=== PATIENT | female | born 1970 | race Caucasian/White ===

== ENCOUNTER 2016-10-08 06:35 | Emergency (ER) | payer OTHER ==
[~2016-10-08] VITALS: Ht 170.2 cm; Wt 77.3 kg
[~2016-10-08 06:35] MED LIST: CEPH-512 PO; CETI10CA PO; CITA20TA11 PO; FENT1PAT6 TRANSDERM; FENT1PAT9 TRANSDERM; LETR2.5T4 PO; LEVO25TA5 PO; LISI40TA PO; LORA-302 PO; Meclizine Hcl PO; ONDA4TAB9 PO; OXYC10TA8 PO; PALB75CA PO; TRIA10.8 NS
[2016-10-08 06:38] VITALS: BP 131/91; PULSE 84; RESP 16; O2SAT 98
--- NOTE | 2016-10-08 07:04 | ED.REPORT ---
HPI-Abd Pain F 40 and Over Date of Service Oct 08, 2016 ED Provider: Vito Trejo DO A 45 year old female with a history of hypertension, anxiety, and metastatic breast cancer on chemotherapy presents to the ED complaining of vomiting. This began two days ago, and has been severe since. She is unable to keep anything down, including her medications. Zofran has not helped. The pt was taking her third round of chemotherapy, which she believes may be a contributing factor. She admits to right sided flank pain and mild constipation, but denies cough, fever, diarrhea, dysuria, urinary urgency, urinary frequency, or rash. Nursing Notes Stated Complaint: VOMITING FOR DAYS Chief Complaint: Female Abdominal Pain Nursing Notes Reviewed: Yes Allergies: Coded Allergies: Penicillins (Verified Allergy, Severe, RASH, 05/06/16) metoclopramide (Verified Allergy, Intermediate, tremors, 05/06/16) prochlorperazine (Verified Allergy, Unknown, 05/06/16) Sulfa (Sulfonamide Antibiotics) (Verified Adverse Reaction, Intermediate, N&V, 05/06/16) ciprofloxacin (Verified Adverse Reaction, Mild, MALAISE, 05/06/16) metoclopramide HCl (Verified Adverse Reaction, Mild, JITTERINESS, 05/06/16) Uncoded Allergies: APRICOTS (Allergy, Severe, UNKNOWN, 05/20/13) "My lips swell" CATS (Allergy, Unknown, UNKNOWN, 04/24/12) DUST MITES (Allergy, Unknown, UNKNOWN, 04/24/12) SULFITES (Allergy, Unknown, UNKNOWN, 04/24/12) TREE POLLEN (Allergy, Unknown, UNKNOWN, 04/24/12) Scheduled Cephalexin (Keflex) 500 Mg Capsule 500 MG PO QID Cetirizine HCl (Zyrtec) 10 Mg Capsule 10 MG PO HS Citalopram (Citalopram) 20 Mg Tablet 20 MG PO DAILY Fentanyl 12.5 mcg/hr Patch (Fentanyl 12.5 mcg/hr Patch) 1 Each Patch.td72 1 PATCH TRANSDERM Q3D Fentanyl 50 mcg/hr Patch (Fentanyl 50 mcg/hr Patch) 1 Each Patch.td72 1 PATCH TRANSDERM Q3D Letrozole (Letrozole) 2.5 Mg Tablet 2.5 MG PO DAILY Levothyroxine (Levothyroxine) 25 Mcg Tablet 25 MCG PO DAILY Lisinopril (Lisinopril) 40 Mg Tablet 40 MG PO DAILY Palbociclib (Ibrance) 75 Mg Capsule 75 MG PO daily x21 Triamcinolone Acetonide (Nasacort) 10.8 Ml [place] 10.8 ML NS DAILY Scheduled PRN ([Meclizine Hcl]) 25 MG TABLET 25 MG PO TID PRN PRN For Dizziness Lorazepam (Ativan) 0.5 Mg Tablet 1-3 TABLET PO Q6HRS PRN PRN For Insomnia Ondansetron ODT (Zofran ODT) 4 Mg Tablet 4-8 MG PO Q4H PRN PRN For Nausea/ Vomiting Promethazine Supp (Promethazine Supp) 25 Mg Supp 25 MG RECTAL Q8H PRN PRN For Nausea/Vomiting oxyCODONE (oxyCODONE) 10 Mg Tablet 10 MG PO Q6H PRN PRN For Pain General Time Seen by MD: 07:03 Chief Complaint Vomiting severe Hx Obtained From: Patient Arrived By: Walk-in Sudden in Onset?: No Onset Occurred: 2 days ago Symptom Duration: Since onset Recent Healthcare: Recent doctor visit, Recent hospitalization Similar Sx Previous: No Past Medical History Past Medical History Notes: Oncologist Gabo alvarez Past Medical History 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 Reccurrence of breast cancer with metastasis to spine and hips, July 2014 L sided breast cancer with chemo ([id number]) and radiation Hypertension Anxiety Depression Past Surgical History bone biopsy L3 pedicle and L3 vertebral body 10/01/14 - pathology postive for breast CA recurrence sinus polyp removal lumpectomy for CA, portacath placement hysterectomy tubal ligation uterine ablation Family History Noncontributory Smoking History Former Smoker Social History Alcohol Use: Denies alcohol use Drug Use: Denies drug use Other Social History: Good social support, Local resident Ambulatory Status Independent Review of Systems Constitutional: Denies: Fever Respiratory: Denies: Non-productive cough, Shortness of breath Cardiovascular: Denies: Chest pain GI: Reports: Constipation, Nausea, Vomiting, Denies: Diarrhea Female: Reports: Flank pain (right), Denies: Dysuria, Urinary frequency, Urinary urgency Musculoskeletal: Denies: Back pain, Neck pain Complete sys rev & neg: except as marked. Skin: Denies Rash Physical Exam Vital Signs Vital Signs (First) Date Time Temp Pulse Resp B/P Pulse Ox O2 Delivery O2 Flow Rate FiO2 10/08/16 06:38 36.1 84 16 131/91 98 Room Air Initial VS: Reviewed General/Constitutional: Awake, Alert Respiratory / Chest: Atraumatic, Breath sounds NL, Breath sounds = bilat, No respiratory distress Cardiovascular: Heart rate NL, Regular rhythm, Heart sounds NL Abdomen: Atraumatic, Soft, Non-tender Back: Atraumatic, Full range of motion right CVAT Head / Eyes: Atraumatic, Normocephalic, PERRL, EOMI ENT: Atraumatic, Airway patent, Mucous membranes moist Skin: Atraumatic, Color NL, No rash, Warm, Dry Neurologic: Oriented X3, Speech NL, No motor deficits, No sensory deficits Neck: Atraumatic, Supple, Full range of motion Upper Extremity / MS: Atraumatic, Full range of motion Lower Extremity / Pelvis / MS: Atraumatic, Full range of motion Psychiatric: Affect NL, Mood NL Interpretation & Diagnostics Interpretation & Diagnostics: CT KUB: IMPRESSION: 1. No nephro or ureterolithiasis. No bladder calculi. No obstruction. 2. Hepatomegaly with steatosis. 3. Mild diverticulosis. 4. Unchanged appearance of known metastatic osseous disease. Dictated by: Cierra Myrick M.D. on 10/08/2016 at 11:09 Approved by: Cierra Myrick M.D. on 10/08/2016 at 11:09 Lab Results Interpretation Result Diagram: 10/08/16 0840 10/08/16 0840 Test 10/08/16 08:40 10/08/16 10:30 White Blood Count 2.4th/mm3 (3.8-10.1) Red Blood Count 3.16mil/mm3 (3.90-5.20) Hemoglobin 10.0g/dL (12.0-15.6) Hematocrit 29.2% (35.0-46.0) Mean Corpuscular Volume 92.4fL (81-100) Mean Corpuscular Hemoglobin 31.6pg (27.0-35.0) Mean Corpuscular Hemoglobin Concent 34.2% (32.0-37.0) Red Cell Distribution Width 16.1% (12.3-15.4) Platelet Count 164bil/L (150-400) Neutrophils (%) (Auto) 74.3% (40-74) Lymphocytes (%) (Auto) 17.6% (14-46) Monocytes (%) (Auto) 6.1% (4-12) Eosinophils (%) (Auto) 0.8% (0-5) Basophils (%) (Auto) 0.4% (0-3) Sodium Level 137mEq/L (134-144) Potassium Level 3.6mEq/L (3.5-5.2) Chloride Level 97mEq/L (97-108) Carbon Dioxide Level 27mmol/L (18-29) Blood Urea Nitrogen 10mg/dL (6-24) Creatinine 0.66mg/dL (0.57-1.00) Estimat Glomerular Filtration Rate 138mL/min (>59) Glucose Level 126mg/dL (60-99) Lactic Acid Level 1.4mmol/L (0.4-2.0) Calcium Level 9.4mg/dL (8.5-10.1) Magnesium Level 2.1mg/dL (1.6-2.6) Total Bilirubin 0.6mg/dL (0.0-1.2) Aspartate Amino Transf (AST/SGOT) 25U/L (0-50) Alanine Aminotransferase (ALT/SGPT) 17U/L (0-32) Alkaline Phosphatase 53U/L (25-150) Total Protein 7.2g/dL (6.4-8.4) Albumin 4.5g/dL (3.4-5.0) Lipase 13U/L (13-60) Urine Color Straw (YELLOW) Urine Appearance Clear (CLEAR,HAZY) Urine pH 8.5 (5.0-8.0) Urine Specific [place] 1.015 (1.003-1.035) Urine Protein Negativemg/dL (NEG,TRACE) Urine Glucose (UA) Negativemg/dL (NEGATIVE) Urine Ketones 15mg/dL (NEGATIVE) Urine Occult Blood Moderate (NEGATIVE) Urine Nitrite Negative (NEGATIVE) Urine Bilirubin Negative (NEGATIVE) Urine Urobilinogen Normalmg/dL (NORMAL) Urine Leukocyte Esterase Trace (NEGATIVE) Urine RBC 0-2/hpf (0-2) Urine WBC 0-5/hpf (0-5) Urine Epithelial Cells Occasional/hpf (NONE-MOD) Urine Crystals None seen (NONE SEEN) Urine Bacteria Few/hpf (NONE-FEW) Urine Hyaline Casts None/lpf (NONE) Urine Granular Casts None seen (NONE SEEN) Urine Waxy Casts None seen (NONE SEEN) Urine Red Blood Cell Casts None seen (NONE SEEN) Urine White Blood Cell Casts None seen (NONE SEEN) Urine Mucus None seen (None Seen) Urine Trichomonas None seen (NONE SEEN) Urine Yeast None (NONE SEEN) Urinalysis Comment None Urine Culture Reflexed Indicated Re-Eval/Medical Decision Med Decision/Clinical Course Difficult to manage vomiting due to reported allergies, she was given Phenergan without any side effects and with complete relief of her vomiting. Additionally she is given multiple other meds with minimal prior relief. Given her flank pain and hematuria as well as CVA tenderness CT KUB was performed but unremarkable. She will be discharged with Phenergan suppositories. She is tolerating oral intake in the ER. Source of Hx: Old records Re-Evaluation/Progress #1: Time of Eval: 10:17 Re-Evaluation/Progress Note: Pt rechecked, who remains nauseated. Medication options and allergies are discussed. Re-Evaluation/Progress #2: Time of Eval: 10:32 Re-Evaluation/Progress Note: Pt rechecked and nausea medications are discussed. Lab results are also addressed. Re-Evaluation/Progress #3: Time of Eval: 11:44 Re-Evaluation/Progress Note: Pt rechecked, who is still vomiting. Treatment options are discussed. Re-Evaluation/Progress #4: Time of Eval: 12:27 Re-Evaluation/Progress Note: Pt rechecked, who is still nauseated. Further options are discussed. Re-Evaluation/Progress #5: Time of Eval: 13:20 Patient Status: Condition improved Re-Evaluation/Progress Note: Pt rechecked, who is no longer vomiting. She will be given an oral challenge. The plan for discharge on Phenergan is discussed if this challenge is passed. The pt understands and agrees with the plan. Re-Evaluation/Progress #6: Time of Eval: 13:45 Patient Status: Condition improved Re-Evaluation/Progress Note: Pt rechecked, who has passed the oral challenge and feels prepared for discharge. She was given Promethazine without adverse reaction. The pt understands and agrees with the plan. All questions were addressed at this time. Counseled Regarding: Diagnosis, Lab results, Need for follow-up, When/why to return to ED Discharge & Departure Primary Impression: Vomiting Disposition: Home Discharge Condition All VS Reviewed: Yes Condition: Stable Patient Instructions: Acute Nausea and Vomiting (ED) Additional Instructions: Take Phenergan as prescribed for nausea. Follow up with your primary care physician for further evaluation. Return to the emergency department if you develop any new or worsening symptoms. Referrals: Kev Lyn MD (PCP) Shyanneibe Attestation Portions of this note were transcribed by Mayda Griffith I, Dr. Trejo personally performed the history, physical exam and medical decision-making; I reviewed and confirmed the accuracy of the information in the transcribed note. Signed by: Milagros Greenberg, 10/08/16 and 14:14. copies to: Kev Lyn MD, Timothy S DO Oct 08, 2016 07:04 MAYDA GRIFFITH Oct 08, 2016 07:27
[2016-10-08] MEDS ORDERED: Ondansetron 8 mg ODT Tablet PO ONE (07:25)
[2016-10-08] MEDS ORDERED: 0.9% Sodium Chloride 1,000 ML IV ONE ×2 (07:27→10:20)
[2016-10-08] MEDS: Ondansetron 2 mg/mL 2 mL Inj IVPUSH PRN ×2 (08:51→10:01)
[2016-10-08] MEDS: HYDROmorphone 1 mg/mL Inj IVPUSH PRN ×2 (08:52→10:03)
[2016-10-08 09:08] LABS: BASOPHILS % (AUTO) 0.4 % (0-3); EOSINOPHILS % (AUTO) 0.8 % (0-5); MONOCYTES % (AUTO) 6.1 % (4-12); Mean Corpuscular Hemoglobin 31.6 pg (27.0-35.0); Mean Corpuscular Volume 92.4 fL (81-100); NEUTROPHILS % (AUTO) 74.3 % (40-74); Platelet Count 164 bil/L (150-400)
[2016-10-08 09:20] LABS: Magnesium 2.1 mg/dL (1.6-2.6)
[2016-10-08] MEDS ORDERED: Dexamethasone Inj 10 MG in 0.9% Sodium Chloride-Pha MIX 50 ML IV ONE (10:20)
[2016-10-08] MEDS ORDERED: Famotidine 10 mg/mL 2 mL Inj IVPUSH ONE (10:35)
[2016-10-08 11:00] VITALS: BP 155/85; PULSE 52; RESP 16; O2SAT 99
[2016-10-08 11:10] LABS: APPEARANCE,URINE CLEAR (CLEAR,HAZY); COLOR,URINE STRAW (YELLOW); OCCULT BLOOD,URINE MODERATE (NEGATIVE); PH,URINE 8.5 (5.0-8.0); UROBILINOGEN,URINE NORMAL (NORMAL)
--- NOTE | 2016-10-08 12:07 | DRSVH ---
PROCEDURE: CT KUB ([id number]) INDICATIONS: Right CVA, hematuria TECHNIQUE: Noncontrast 5 mm thick sections acquired from the diaphragms to the symphysis. 5 mm thick coronal an d sagittal reformats were then performed. For radiation dose reduction, the following was used: aut omated exposure control, adjustment of mA and/or kV according to patient size. COMPARISON: [facility], CT, CT CHEST ABD PELVIS W CON, 04/01/2016, 14:49. [facility], CT, KUB - CT (PNL), 01/31/2015, 13:21. FINDINGS: Image quality: Excellent. Lung bases: Lung bases are clear. Heart size is normal. Urinary system: Both kidneys are normal in size. No kidney stones. No hydronephrosis or perinephri c fat stranding. Both ureters appear non-dilated throughout their expected courses. Bladder wall th ickness is normal; no calcified bladder stones. Other solid organs: Liver is mildly enlarged with steatosis. The spleen is normal in size. Gallblad diogenes is unremarkable. Pancreas is normal in contours. No adrenal nodules. Peritoneum and bowel: Unenhanced bowel loops demonstrate normal wall thickness and caliber. No free fluid or air. Scattered diverticula without associated inflammatory change. Nodes and vessels: No retroperitoneal or mesenteric adenopathy by size criteria. Aorta and inferior vena cava are normal in caliber. Abdominal wall: No ventral hernias. Pelvis: No free pelvic fluid. No inguinal hernias or adenopathy. Bones: Unchanged appearance of sclerotic and lucent foci within the osseous structures consistent wit h known metastatic disease. No vertebral body compression fractures. IMPRESSION: 1. No nephro or ureterolithiasis. No bladder calculi. No obstruction. 2. Hepatomegaly with steatosis. 3. Mild diverticulosis. 4. Unchanged appearance of known metastatic osseous disease. Dictated by: Cierra Myrick M.D. on 10/08/2016 at 11:09 Approved by: Cierra Myrick M.D. on 10/08/2016 at 11:09
[2016-10-08] MEDS ORDERED: Promethazine Inj 25 MG in Dextrose 5%-Pha MIX 50 ML IV ONE (12:30)
[2016-10-08] MEDS ORDERED: PROM25SU47 RECTAL (14:08)
[2016-10-08 14:29] VITALS: BP 133/90; PULSE 59; O2SAT 97
[2016-10-08] MEDS ORDERED: HepLOK Flush 100 unit/mL 5 mL Inj ONE (14:45)
[2016-10-17] MEDS ORDERED: FLUO20TA28 PO (15:39)
[2016-10-17] MEDS ORDERED: FENT-2 TRANSDERM (15:39)
[2016-10-17] MEDS ORDERED: OLAN5TAB PO (15:39)
[2016-11-16] MEDS ORDERED: FENT1PAT6 TRANSDERM (15:39)
[2016-11-28] MEDS ORDERED: CAPE500T15 PO (12:24)
[2016-12-26] MEDS ORDERED: CAPE500T15 PO (16:34)
== END 2016-10-08 14:55 | disposition home or self-care (01) ==
LOC: SED 06:35
DX: R11.2 Nausea with vomiting, unspecified (principal); R10.31 Right lower quadrant pain; K59.00 Constipation, unspecified; C79.51 Secondary malignant neoplasm of bone; C50.912 Malignant neoplasm of unspecified site of left female breast; R16.0 Hepatomegaly, not elsewhere classified; K76.0 Fatty (change of) liver, not elsewhere classified; I10 Essential (primary) hypertension; F41.9 Anxiety disorder, unspecified; Z92.21 Personal history of antineoplastic chemotherapy; Z87.891 Personal history of nicotine dependence; Z88.0 Allergy status to penicillin; Z88.8 Allergy status to other drugs, medicaments and biological substances; Z88.2 Allergy status to sulfonamides; Z88.1 Allergy status to other antibiotic agents
CPT/HCPCS: 36415; 74176; 80053; 81000; 81025; 83605; 83690; 83735; 85025; 87086; 87088; 96361; 96365; 96375; 96376; 99285; J1100; J1170; J1200; J2405; J3490; J7030

== ENCOUNTER 2017-02-17 16:34 | Observation (INO) | payer MEDICARE ==
[~2017-02-17] VITALS: Ht 170.2 cm; Wt 78.2 kg
[~2017-02-17 16:34] MED LIST changes: +CAPE500T15 PO; +FENT-2 TRANSDERM; -FENT1PAT9 TRANSDERM; +FLUO20TA28 PO; +OLAN5TAB PO; -PALB75CA PO; +PROM25SU47 RECTAL
[2017-02-17 16:41] VITALS: BP 107/64; PULSE 95; RESP 15; O2SAT 100
[2017-02-17 17:24] LABS: BASOPHILS % (AUTO) 1.5 % (0-3); EOSINOPHILS % (AUTO) 3.8 % (0-5); MONOCYTES % (AUTO) 6.8 % (4-12); Mean Corpuscular Hemoglobin 27.7 pg (27.0-35.0); Mean Corpuscular Volume 90.8 fL (81-100); NEUTROPHILS % (AUTO) 59.9 % (40-74); Platelet Count 95 bil/L (150-400)
--- NOTE | 2017-02-17 18:04 | ED.REPORT ---
HPI-General Illness Date of Service Feb 17, 2017 ED Provider: Edel Bustos MD Pt is a 46 year old female with a hx of metastatic breast cancer presenting to the ED complaining of malaise onset 2 weeks ago, right after her last chemo. Associated symptoms include right side pain, dizziness, disorientation, fatigue , and weakness. Denies fever, chills, cough, black or tarry stool, SOB. She reports that she has been gradually feeling worse, and has become more fatigued and has had increasing right sided pain which began about a month ago. Pt has been treated for metastatic breast cancer since 2013. Nursing Notes Stated Complaint: RT SIDE PAIN,DIZZY Chief Complaint: General Complaint Nursing Notes Reviewed: Yes Allergies: Coded Allergies: Penicillins (Verified Allergy, Severe, RASH, 05/06/16) metoclopramide (Verified Allergy, Intermediate, tremors, 05/06/16) prochlorperazine (Verified Allergy, Unknown, 02/17/17) Sulfa (Sulfonamide Antibiotics) (Verified Adverse Reaction, Intermediate, N&V, 02/17/17) ciprofloxacin (Verified Adverse Reaction, Mild, MALAISE, 02/17/17) metoclopramide HCl (Verified Adverse Reaction, Mild, JITTERINESS, 02/17/17) Uncoded Allergies: APRICOTS (Allergy, Severe, UNKNOWN, 05/20/13) "My lips swell" CATS (Allergy, Unknown, UNKNOWN, 04/24/12) DUST MITES (Allergy, Unknown, UNKNOWN, 04/24/12) SULFITES (Allergy, Unknown, UNKNOWN, 04/24/12) TREE POLLEN (Allergy, Unknown, UNKNOWN, 04/24/12) Scheduled Capecitabine (Capecitabine) 500 Mg Tablet 500 MG PO AM 7 DAYS ON/7 DAYS OFF Capecitabine (Capecitabine) 500 Mg Tablet 1,000 MG PO HS 7 DAYS ON/7 DAYS OFF Cetirizine HCl (Zyrtec) 10 Mg Capsule 10 MG PO HS Fentanyl 12.5 mcg/hr Patch (Fentanyl 12.5 mcg/hr Patch) 1 Each Patch.td72 1 PATCH TRANSDERM Q3D Fentanyl 75 mcg/hr Patch (Fentanyl 75 mcg/hr Patch) 1 Each Patch.td72 1 PATCH TRANSDERM Q3D Fluoxetine (Fluoxetine) 20 Mg Tablet 20 MG PO DAILY Lisinopril (Lisinopril) 40 Mg Tablet 40 MG PO DAILY Triamcinolone Acetonide (Nasacort) 10.8 Ml [place] 1-2 SPRAYS NS DAILY Scheduled PRN Lorazepam (Ativan) 0.5 Mg Tablet 1-3 TABLET PO Q6HRS PRN PRN For Insomnia Ondansetron ODT (Zofran ODT) 4 Mg Tablet 4-8 MG PO Q4H PRN PRN For Nausea/ Vomiting oxyCODONE (oxyCODONE) 10 Mg Tablet 10 MG PO Q6H PRN PRN For Pain General Time Seen by MD: 18:03 Chief Complaint Not feeling well Hx Obtained From: Patient Arrived By: Walk-in Sudden in Onset?: No Onset Occurred: More than a week ago... 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 Reccurrence of breast cancer with metastasis to spine and hips, July 2014 L sided breast cancer with chemo ([id number]) and radiation Hypertension Anxiety Depression Past Surgical History bone biopsy L3 pedicle and L3 vertebral body 10/01/14 - pathology postive for breast CA recurrence sinus polyp removal lumpectomy for CA, portacath placement hysterectomy tubal ligation uterine ablation Family History Noncontributory Smoking History Former Smoker Social History Alcohol Use: Denies alcohol use Drug Use: Denies drug use Other Social History: Good social support, Local resident Ambulatory Status Independent Review of Systems Full Review of Systems Constitutional: Reports: Fatigue, Malaise, Weakness - generalized, Denies: Chills, Fever Respiratory: Denies: Non-productive cough, Shortness of breath GI: Reports: Abdominal pain, Denies: Bloody/tarry stool Neurologic: Reports: Dizziness Complete sys rev & neg: except as marked. Physical Exam Vital Signs Vital Signs Date Time Temp Pulse Resp B/P Pulse Ox O2 Delivery O2 Flow Rate FiO2 02/17/17 16:41 36.6 95 15 107/64 100 Room Air Initial VS: Reviewed, Vital signs normal ENT: Mucous membranes moist, Conjunctiva normal, No scleral icterus Neck: Supple, Non-tender, Full range of motion Respiratory: Breath sounds normal, Clear to auscultation, No respiratory distress Cardiovascular: Regular rate & rhythm, Heart sounds normal, Intact distal pulses Extremities: Vascular intact, Neuro intact, No swelling, No tenderness Skin: Warm, Dry, No cyanosis Neurologic: Alert, Oriented, Nonfocal Psychiatric: Mood/affect normal, Behavior normal, Normal thought content General/Constitutional: Awake, Alert, No acute distress Appearance / Presentation: Positive: Pale Head / Eyes: Atraumatic, PERRL, EOMI, No nystagmus Pale conjunctiva Abdomen: Atraumatic, Soft Right rib pain Lower Extremity / Pelvis / MS: No edema Rectum / Perineum: Atraumatic, No gross blood Guaiac negative. Light stool. Interpretation & Diagnostics Lab Results Interpretation Result Diagram: 02/17/17 1710 02/17/17 1710 Test 02/17/17 17:10 02/17/17 17:44 02/17/17 18:46 02/17/17 19:15 White Blood Count 1.3th/mm3 (3.8-10.1) Red Blood Count 2.06mil/mm3 (3.90-5.20) Hemoglobin 5.7g/dL (12.0-15.6) Hematocrit 18.7% (35.0-46.0) Mean Corpuscular Volume 90.8fL (81-100) Mean Corpuscular Hemoglobin 27.7pg (27.0-35.0) Mean Corpuscular Hemoglobin Concent 30.5% (32.0-37.0) Red Cell Distribution Width 18.0% (12.3-15.4) Platelet Count 95bil/L (150-400) Neutrophils (%) (Auto) 59.9% (40-74) Lymphocytes (%) (Auto) 26.5% (14-46) Monocytes (%) (Auto) 6.8% (4-12) Eosinophils (%) (Auto) 3.8% (0-5) Basophils (%) (Auto) 1.5% (0-3) Sodium Level 141mEq/L (134-144) Potassium Level 3.5mEq/L (3.5-5.2) Chloride Level 99mEq/L (97-108) Carbon Dioxide Level 26mmol/L (18-29) Blood Urea Nitrogen 10mg/dL (6-24) Creatinine 0.72mg/dL (0.57-1.00) Estimat Glomerular Filtration Rate 124mL/min (>59) Glucose Level 132mg/dL (60-99) Lactic Acid Level 2.3mmol/L (0.4-2.0) Calcium Level 9.4mg/dL (8.5-10.1) Magnesium Level 2.0mg/dL (1.6-2.6) Aspartate Amino Transf (AST/SGOT) 19U/L (0-50) Alanine Aminotransferase (ALT/SGPT) 9U/L (0-32) Alkaline Phosphatase 77U/L (25-150) Total Protein 7.2g/dL (6.4-8.4) Albumin 3.5g/dL (3.4-5.0) Lipase 14U/L (13-60) Prothrombin Time 10.7sec (8.1-12.5) Prothromb Time International Ratio 1.00ratio Urine Color Yellow (YELLOW) Urine Appearance Hazy (CLEAR,HAZY) Urine pH 5.5 (5.0-8.0) Urine Specific [place] 1.020 (1.003-1.035) Urine Protein Tracemg/dL (NEG,TRACE) Urine Glucose (UA) Negativemg/dL (NEGATIVE) Urine Ketones Negativemg/dL (NEGATIVE) Urine Occult Blood Negative (NEGATIVE) Urine Nitrite Negative (NEGATIVE) Urine Bilirubin Negative (NEGATIVE) Urine Urobilinogen Normalmg/dL (NORMAL) Urine Leukocyte Esterase Trace (NEGATIVE) Urine RBC 0-2/hpf (0-2) Urine WBC 6-10/hpf (0-5) Urine Epithelial Cells Few/hpf (NONE-MOD) Urine Crystals Amorphous urates (NONE Urine Bacteria Few/hpf (NONE-FEW) Urine Hyaline Casts None/lpf (NONE) Urine Granular Casts None seen (NONE SEEN) Urine Waxy Casts None seen (NONE SEEN) Urine Red Blood Cell Casts None seen (NONE SEEN) Urine White Blood Cell Casts None seen (NONE SEEN) Urine Mucus Present (None Seen) Urine Trichomonas None seen (NONE SEEN) Urine Yeast None (NONE SEEN) Urinalysis Comment None Urine Culture Reflexed Indicated Total Bilirubin 0.2mg/dL (0.0-1.2) Direct Bilirubin < 0.2mg/dL (0.0-0.3) X-Ray Chest Interpretation Chest Xray Interpretation: IMPRESSION: No definite metastatic disease, no source of right-sided chest pain is found. A Port-A-Cath in normal position, right breast surgical clips laterally. Dictated by: Jhoan Aguilar M.D. on 02/17/2017 at 19:39 View: Portable, 1 view Interpretation / Wet Read by: Interpret - Radiologist Re-Eval/Medical Decision Med Decision/Clinical Course This patient had her labs drawn and return before I had seen her. She is severely anemic and also pancytopenic. It seems it may be from her chemotherapy. No other source of bleeding is found and there is no sign of hemolysis. The patient's rectal exam was negative and she does not have any sign or history of GI bleed. The patient will be admitted for transfusion and further evaluation of the cause of her anemia. Time of Eval: 19:36 Patient Status: Condition improved Re-Evaluation/Progress Note: Discussed plan for blood transfusion. Risks and benefits discussed. Pt understands and consents. Consultation #1: Referral / Consult Name: Toni Salinas MD Call Returned at: 19:01 Computer Hardware Engineer: Agrees with plan Note: Oncology. Consultation #2: Referral / Consult Name: Gonsalo Hart MD Consulted With: Hospitalist Call Returned at: 19:33 Computer Hardware Engineer: Will see patient, Agrees with plan, Accepts admit Counseled Regarding: Diagnosis, Lab results, Need for follow-up, When/why to return to ED Discharge & Departure Primary Impression: Pancytopenia Additional Impression: Anemia Anemia type: unspecified type Qualified Code: D64.9 - Anemia, unspecified Disposition: ADMITTED TO HOSPITAL Discharge Condition All VS Reviewed: Yes Condition: Improved Referrals: Kev Lyn MD (PCP) Barrie Smith Attestation Portions of this note were transcribed by Maddie Gillette. I, Dr. Bustos personally performed the history, physical exam and medical decision-making; I reviewed and confirmed the accuracy of the information in the transcribed note. Signed by : Milagros Mckeon, 02/17/2017 and 1957. copies to: Kev Lyn MD; Barrie Smith Jena M MD Feb 17, 2017 18:04 MADDIE GILLETTE Feb 17, 2017 18:14
[2017-02-17] MEDS ORDERED: 0.9% Sodium Chloride 500 ML IV ONE (18:25)
[2017-02-17] MEDS ORDERED: fentaNYL-PF 50 mCg/mL 2 mL Inj IVPUSH PRN (18:25)
[2017-02-17 19:03] LABS: APPEARANCE,URINE HAZY (CLEAR,HAZY); COLOR,URINE YELLOW (YELLOW); OCCULT BLOOD,URINE NEGATIVE (NEGATIVE); PH,URINE 5.5 (5.0-8.0); UROBILINOGEN,URINE NORMAL (NORMAL)
[2017-02-17] MEDS ORDERED: HYDROmorphone 1 mg/mL Inj IVPUSH ONE (19:10)
--- NOTE | 2017-02-17 19:42 | DRSVH ---
PROCEDURE: X-RAY CHEST ONE VIEW, PORTABLE ([id number]) INDICATIONS: right chest pain TECHNIQUE: One view of the chest was acquired. COMPARISON: [facility], CT, CT CHEST ABD PELVIS W CON, 12/01/2016, 10:50. FINDINGS: Surgical changes and devices: Central line, Port-A-Cath type, from left-sided approach extends in no rmal position in the expected area of the distal SVC. Multiple surgical clips over the right lower c hest/posterior breast area laterally.. Lungs and pleura: No pleural effusions or pneumothorax. Lungs are clear. Mediastinum: Mediastinal contours appear normal. Heart size is normal. Bones and chest wall: No suspicious bony lesions. Overlying soft tissues appear unremarkable. IMPRESSION: No definite metastatic disease, no source of right-sided chest pain is found. A Port-A- Cath in normal position, right breast surgical clips laterally. Dictated by: Jhoan Aguilar M.D. on 02/17/2017 at 19:39 Approved by: Jhoan Aguilar M.D. on 02/17/2017 at 19:41
[2017-02-17] MEDS ORDERED: Ondansetron 2 mg/mL 2 mL Inj IVPUSH PRN (19:50)
[2017-02-17] MEDS ORDERED: Polyethylene Glycol (PEG) 17 Gm Powder PO PRN (19:50)
[2017-02-17] MEDS ORDERED: Alum-Mag Hydrox-Simeth 30 mL Suspension PO PRN (19:50)
[2017-02-17 20:08] LABS: Bilirubin, Direct < 0.2 mg/dL (0.0-0.3)
--- NOTE | 2017-02-17 20:08 | PCM.HPMED ---
Subjective Date of Service Feb 17, 2017 Primary Provider: Admitting Physician: Gonsalo Hart MD Primary Care Physician: Kev Lyn MD Attending Physician: Gonsalo Hart MD Chief Complaint: Generalized weakness History of Present Illness: Ms. Sam is a 46-year-old female with past medical history of metastatic breast cancer who presented to the ED complaining of generalized malaise 2 weeks. Patient is currently undergoing chemotherapy and radiation treatment for her cancer since 2013 and were recently has been receiving chemotherapy treatments one week on and one week off until two weeks ago where she decided to not undergo last week's treatment as she was busy relocating and moving into a new house. She states that normally when she does not take her chemotherapy she will begin to feel better within 1-2 days of stopping treatment, subsequently feeling better and better each additional day until almost feeling back to normal after 2 weeks. She states this time is much different in that she still feels "really bad". She states that she is lethargic with low energy , confused and having a hard time concentrating on tasks or remembering events during the day sometimes even what time it is during the day, this is been accompanied with dizziness. She denies fever/chills, cough/chest pain/SOB, palpitations, abdominal pain, black or tarry stool. She does state that she has a right sided flank pain 2 months which she has been told is due to cancer metastasis to her ribs. In the ED she was found to be severely anemic with hemoglobin and hematocrit of 5.7/18.7, white count of 1.3 and platelet count of 95. She also had a mild lactic acidosis at 2.3. Chest x-ray showed no definite metastatic disease or obvious source of right sided chest pain. She was given 1 unit of blood and transferred to the floor to receive an additional unit of blood. She was started on pain medication, stool guaiac negative. Review of Systems: A comprehensive review of systems was conducted with the patient and found to be negative except as above in the history of present illness. Allergies Coded Allergies: Penicillins (Verified Allergy, Severe, RASH, 05/06/16) metoclopramide (Verified Allergy, Intermediate, tremors, 05/06/16) prochlorperazine (Verified Allergy, Unknown, 02/17/17) Sulfa (Sulfonamide Antibiotics) (Verified Adverse Reaction, Intermediate, N&V, 02/17/17) ciprofloxacin (Verified Adverse Reaction, Mild, MALAISE, 02/17/17) metoclopramide HCl (Verified Adverse Reaction, Mild, JITTERINESS, 02/17/17) Uncoded Allergies: APRICOTS (Allergy, Severe, UNKNOWN, 05/20/13) "My lips swell" CATS (Allergy, Unknown, UNKNOWN, 04/24/12) DUST MITES (Allergy, Unknown, UNKNOWN, 04/24/12) SULFITES (Allergy, Unknown, UNKNOWN, 04/24/12) TREE POLLEN (Allergy, Unknown, UNKNOWN, 04/24/12) Home Medications Capecitabine (Capecitabine) 500 Mg Tablet 500 MG PO AM 7 DAYS ON/7 DAYS OFF Capecitabine (Capecitabine) 500 Mg Tablet 1,000 MG PO HS 7 DAYS ON/7 DAYS OFF Cetirizine HCl (Zyrtec) 10 Mg Capsule 10 MG PO HS Fentanyl 12.5 mcg/hr Patch (Fentanyl 12.5 mcg/hr Patch) 1 Each Patch.td72 1 PATCH TRANSDERM Q3D Fentanyl 75 mcg/hr Patch (Fentanyl 75 mcg/hr Patch) 1 Each Patch.td72 1 PATCH TRANSDERM Q3D Fluoxetine (Fluoxetine) 20 Mg Tablet 20 MG PO DAILY Lisinopril (Lisinopril) 40 Mg Tablet 40 MG PO DAILY Triamcinolone Acetonide (Nasacort) 10.8 Ml Perkins 1-2 SPRAYS NS DAILY PMH 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 difficile colitis Chronic sinusitis Surgical History bone biopsy L3 pedicle and L3 vertebral body 10/01/14 - pathology postive for breast CA recurrence sinus polyp removal lumpectomy for CA, portacath placement hysterectomy tubal ligation uterine ablation Family History Father hypertension Social History Hx Alcohol Use: No Hx Substance Use: No Hx Tobacco Use: Yes Smoking Status: Former Smoker Exam Vital Signs Vital Sign - Last Date Time Temp Pulse Resp B/P Pulse Ox O2 Delivery O2 Flow Rate FiO2 02/17/17 16:41 36.6 95 15 107/64 100 Room Air Exam General: Laying in hospital bed in no acute distress, well-developed, well- nourished, appropriately interactive HEENT: Normocephalic, atraumatic. External ears without defect. Pupils equal, round, and reactive to light and accommodation. Pale conjunctiva. Oropharynx free of erythema and cobble stoning with moist mucosa. Neck: Supple with full range of motion. No jugular venous distension. Cardiovascular: Regular rate and rhythm with no murmurs, rubs, or gallops appreciated Pulmonary: Clear to auscultation bilaterally with no crackles, wheezes, or rhonchi. Normal respiratory effort with no use of accessory muscles. Chest/flank: Right sided flank/rib pain to palpation. Abdomen: Bowel tones present. Soft, nontender, nondistended. Extremities: No clubbing, cyanosis, edema, or lymphadenopathy appreciated. Skin: Normal temperature, turgor, and texture Neurological: Cranial nerves grossly intact. Psychiatric: Normal mood and affect. Alert and oriented to person, place, and time. Lab and Diagnostics Result Diagram: 02/17/17 1710 02/17/17 1710 X-Rays, CTs and MRIs . X-RAY CHEST ONE VIEW, PORTABLE IMPRESSION: No definite metastatic disease, no source of right-sided chest pain is found. A Port-A-Cath in normal position, right breast surgical clips laterally. Dictated by: Jhoan Aguilar M.D. on 02/17/2017 at 19:39 Assessment & Plan Pt is a 46 year old female with a hx of metastatic breast cancer admitted secondary to anemia requiring blood transfusion Anemia. Chronic. Present on admission. Ongoing - Most likely secondary to neoplasm and concomitant chemotherapy treatment - Stool guaiac negative - Type and cross, 2 units received - Continue to monitor Metastatic breast cancer with history of chemotherapy and radiation. Present on admission. Ongoing - Oncology consult by ED doc - Patient without chemotherapy 2 weeks - Continue pain control with Dilaudid - Continue home pain medications Pancytopenia. Present on admission. Ongoing - Post likely secondary to chemotherapy - Blood transfusion as above - Consider neutropenic precautions if ANC less than 500 Lactic acidosis. Present on admission. Ongoing - Most likely secondary to metastatic cancer with resultant anemia - Continue to monitor Possible UTI. Present on admission. Ongoing - Urinalysis showed WBC 6-10, trace leuk esterase - Culture pending Anxiety. Present on admission. Ongoing - Continue home lorazepam Depression - Continue home fluoxetine Hypertension present on admission. Ongoing - Hold home Lisinopril Patient Status: Patient was admitted under inpatient status with expected length of stay greater than two midnights due to severity of presenting symptoms , risk of adverse event, and complexity of treatment plan. Pain Evaluation: Adequate Pain Control GI Prophylaxis: Proton Pump Inhibitor VTE Prophylaxis: SCDs Resuscitation Status: CPR: Attempt Resuscitation Attending Statement The patient was seen and examined together with Dr. Patel on 02/17 and I agree with the history, exam and plan as outlined in the note above. EVELYN PATEL DO Feb 17, 2017 20:08 Gonsalo Hart MD Feb 18, 2017 03:56
[2017-02-17 20:18] VITALS: BP 114/75; PULSE 81; RESP 16
[2017-02-17 20:20] VITALS: BP 114/75; PULSE 81; RESP 16; O2SAT 96
--- NOTE | 2017-02-17 20:30 | NUR ---
Arrival / GUIAC Pt arrives to [facility] with partial unit of blood infusing at 2030. VS taken and monitored through rest of infusion. MD informed of pt arrival and pain level, guiac in ED not documented but verified negative by MD. Pain meds changed to dilauded at pt request, and given general diet. Blood finished at 0 VS WNL. Second unit started at 2310
[2017-02-17] MEDS ORDERED: HYDROmorphone 1 mg/mL Inj IVPUSH PRN (21:55)
[2017-02-17 23:09] VITALS: BP 120/84; PULSE 75; RESP 17
[2017-02-17] MEDS ORDERED: Pantoprazole 20 mg ER24 Tablet PO PRN (23:10)
[2017-02-17 23:40] VITALS: BP 123/81; PULSE 67; RESP 17; O2SAT 98
[2017-02-17] MEDS: LORazepam 0.5 mg Tablet PO PRN (23:52)
[2017-02-18] MEDS: HYDROmorphone 1 mg/mL Inj IVPUSH PRN ×4 (00:40→20:08)
[2017-02-18 04:51] LABS: BASOPHILS % (AUTO) 0.6 % (0-3)
[2017-02-18 05:00] VITALS: BP 125/80; PULSE 75; RESP 17; O2SAT 98
[2017-02-18 05:00] LABS: EOSINOPHILS % (AUTO) 2.4 % (0-5); MONOCYTES % (AUTO) 7.7 % (4-12); Mean Corpuscular Hemoglobin 28.6 pg (27.0-35.0); Mean Corpuscular Volume 88.7 fL (81-100); Platelet Count 80 bil/L (150-400)
[2017-02-18 08:50] VITALS: BP 115/77; PULSE 83; RESP 16; O2SAT 97
[2017-02-18] MEDS: Fluticasone 0.05% 15 Spray/2 Gm 16 Gm Nasal Spray NASAL SCH (09:10)
[2017-02-18] MEDS ORDERED: 0.9% Sodium Chloride 250 ML ONE (09:37)
[2017-02-18 13:01] VITALS: BP 115/81; PULSE 74; RESP 16; O2SAT 95
--- NOTE | 2017-02-18 14:21 | NUR ---
Pain IV dilaudid being given for flank/back/abd pain. Pt reports nausea with oxycodone and hydrocodone. Premedicated with 4mg Zofran ODT for 10mg oxycodone, with good effect. Dilaudid reserved for breakthrough pain. Additionally, fentanyl patches from home are in place and pt states they are due to be changed tomorrow.
--- NOTE | 2017-02-18 14:28 | NUR ---
Social Work: Initial Assessment D: EMR reviewed. Pt is a 46 y/o female admitted for severe anemia, met breast cancer. KUSHAL met with pt at bedside to conduct initial assessment. Pt was alert and oriented x3. SW explained role and wrote phone number on white board. SW provided DPOA/advanced directive ppw at pt's request and encouraged pt to provide a copy to the hospital. Pt's insurance is Medicare and PCP is Kev Lyn MD. Pt is also followed by Dr. Roman in Oncology. Pt's primary contact is sister Maggie Paulino ([phone]) and can be contacted for discharge planning. Pt has no Hx of HH or SNF. Pt has no LTC insurance or VA benefits. Pt is independent with ADLs. Pt owns a FWW, cane, and wheelchair. Pt does not own any other DME. Pt uses a cane to ambulate at baseline. Pt drives. Pt is independent at baseline. Pt lives in [place] with her sister in a multi-story home with 0 steps to enter and 12 steps to the second and third levels. KUSHAL confirmed that pt's sister will provide transport home via POV when pt is medically stable. SW does not anticipate any discharge needs at this time but will continue to follow if needs arise. A: Pt who is independent at baseline. P: KUSHAL confirmed that pt's sister (Maggie Paulino [phone]) will provide transport home via POV when pt is medically stable. KUSHAL does not anticipate any discharge needs at this time but will continue to follow if needs arise. JAMARI Muse Addendum: 02/18/17 at 1435 by SARA RIVERA Amended: Links added.
[2017-02-18 17:05] VITALS: BP 147/92; PULSE 66; RESP 14; O2SAT 97
[2017-02-18 19:50] VITALS: BP 147/88; PULSE 57; RESP 16; O2SAT 98
[2017-02-18] MEDS: LORazepam 0.5 mg Tablet PO PRN (19:59)
--- NOTE | 2017-02-19 01:02 | PCM.PNMED ---
Subjective Date of Service Feb 19, 2017 Subjective Patient is seen and examined. She states that her anemia started getting worse after she started using capecitabine. She denies any active bleeding the rectum or by mouth or vaginal. She says that she feels tired. She discussed feeling sad about the prognosis she was apparently told that she had no options by [facility], and also [facility] for her hip. States that she is currently on a 2 week vacation from her medication for maintenance and she is moving and she has asked her oncologist to change her regimen. She is usually 1 week on 1 week off that because she is unable to tolerate the medication she is now on a regimen of 7 days on and 14 days of. She states that she asked for IV Dilaudid, as that helps her pain better. She has fentanyl patch on as well as when necessary oxycodone at home. During this admission she is taking IV dilaudid few times a day but only took oxycodone once today. No other concerns Exam Vital Signs Vital Sign - Last Date Time Temp Pulse Resp B/P Pulse Ox O2 Delivery O2 Flow Rate FiO2 02/18/17 19:50 36.3 57 16 147/88 98 Room Air Intake and Output 02/18/17 02/18/17 02/19/17 Cumulative From/Thru 15:00 23:00 07:00 02/17/17 16:41 - 02/18/17 18:23 Intake Total 921 ml 2571 ml Output Total 600 ml 800 ml Balance 321 ml 1771 ml Intake Oral 700 ml 1500 ml IV Total 221 ml 771 ml Packed Cells 300 ml Output Urine Total 600 ml 800 ml # Bowel Movements 0 0 Exam General: Laying in hospital bed in no acute distress, well-developed, well- nourished, appropriately interactive. Sad at times HEENT: Normocephalic, atraumatic. External ears without defect. Neck: Supple with full range of motion. No jugular venous distension. Cardiovascular: Regular rate and rhythm with no murmurs, rubs, or gallops appreciated Pulmonary: Clear to auscultation bilaterally with no crackles, wheezes, or rhonchi. Normal respiratory effort with no use of accessory muscles. Chest/flank: Right sided flank pain to palpation. Mild diffuse abdominal pain ( states this is her baseline due to bony metastases) Abdomen: Bowel tones present. Soft, nontender, nondistended. Extremities: Negative for edema Skin: Normal temperature, turgor, and texture Neurological: No focal deficits Psychiatric: Normal mood and affect. Alert and oriented to person, place, and time. IVs and Medications Medications Reviewed: Medications were reviewed in detail Lab and Diagnostics Result Diagram: 02/18/17 0430 02/17/17 1710 X-Rays, CTs and MRIs . X-RAY CHEST ONE VIEW, PORTABLE IMPRESSION: No definite metastatic disease, no source of right-sided chest pain is found. A Port-A-Cath in normal position, right breast surgical clips laterally. Dictated by: Jhoan Aguilar M.D. on 02/17/2017 at 19:39 Assessment & Plan Pt is a 46 year old female with a hx of metastatic breast cancer admitted secondary to anemia requiring blood transfusion Anemia. Chronic. Present on admission. Ongoing - Most likely secondary to her maintenance medication side effects - Stool guaiac negative - Type and cross, 2 units received, patient is transfused with 2 units H&H came back up appropriately - Continue to monitor Metastatic breast cancer with history of chemotherapy and radiation. Present on admission. Ongoing - Oncology consult by ED doc - Patient without chemotherapy 2 weeks - Continue pain control with Dilaudid: Discussed case with , who feels that we may increase her meds appropriately to control her pain, he states that Dr. Smith has not seen her a month or so (probably because she asked for time off to move and missed an appointment). - Continue home pain medications fentanyl but d/c oxycodone. I have explained to her that she can get Dilaudid here, but as her insurance does not cover Dilaudid (patient tells me this ) and we will be converting her usage here to oxycodone prior to her discharge. She is agreeable to this. Pancytopenia. Present on admission. Ongoing - Post likely secondary to chemotherapy - Blood transfusion as above - Consider neutropenic precautions if ANC less than 500 Lactic acidosis. Present on admission. Ongoing - Most likely secondary to metastatic cancer with resultant anemia - Continue to monitor Possible UTI. Present on admission. Ongoing - Urinalysis showed WBC 6-10, trace leuk esterase - UTI ruled out Anxiety. Present on admission. Ongoing - Continue home lorazepam Depression - Continue home fluoxetine Hypertension present on admission. Ongoing - Hold home Lisinopril Patient Status: Patient was admitted under inpatient status with expected length of stay greater than two midnights due to severity of presenting symptoms , risk of adverse event, and complexity of treatment plan. Pain Evaluation: Adequate Pain Control GI Prophylaxis: Proton Pump Inhibitor VTE Prophylaxis: SCDs Resuscitation Status: CPR: Attempt Resuscitation Time spent 30 min Franchesca Vila DO Feb 19, 2017 01:02
[2017-02-19] MEDS: HYDROmorphone 1 mg/mL Inj IVPUSH PRN ×3 (02:08→10:10)
[2017-02-19 05:30] VITALS: BP 141/86; PULSE 61; RESP 16; O2SAT 95
[2017-02-19 06:41] LABS: BASOPHILS % (AUTO) 1.4 % (0-3); EOSINOPHILS % (AUTO) 2.1 % (0-5); MONOCYTES % (AUTO) 7.1 % (4-12); Mean Corpuscular Hemoglobin 30.3 pg (27.0-35.0); Platelet Count 79 bil/L (150-400)
--- NOTE | 2017-02-19 07:30 | NUR ---
Pain Pain managed with IV dilauded this shift, ativan given at HS and maalox given in AM due to GI acidic feeling. Pt hopeful that labs remain improved enough to go home. Care continues
[2017-02-19] MEDS: Fluticasone 0.05% 15 Spray/2 Gm 16 Gm Nasal Spray NASAL SCH (08:37)
[2017-02-19] MEDS ORDERED: POLY17PO6 PO (10:04)
[2017-02-19] MEDS ORDERED: SENN-133 PO (10:04)
--- NOTE | 2017-02-19 10:16 | PCM.DIMED ---
Discharge Instructions Date of Service Feb 19, 2017 Dates of Hospitalization Feb 17, 2017 at 19:41 Discharge Diagnosis Discharge Diagnosis Anemia secondary to medication side effect Diet Discharge Diet: No restrictions Activity Discharge Activity: No restrictions Call your provider Call your provider for: Fever or Chills, Shortness of breath, Bleeding, Chest pain, Vomitting, Excessive diarrhea, Weakness (unilateral), Other Patient Instructions Patient Instructions Please take iron supplementation as prescribed. Use regular bowel regimen as iron and pain meds will cause constipation Follow up H&H in one week to be sent to dr. Smith Follow-up plan Follow up H&H in one week to be sent to dr. Smith F/U with Dr. Smith in one week F/U with PCP in 2 weeks Franchesca Vila DO Feb 19, 2017 10:16
--- NOTE | 2017-02-19 10:18 | PCM.DC.MED ---
Discharge Summary Date of Service Feb 19, 2017 Dates of Hospitalization Date of Hospital Admission Feb 17, 2017 at 19:41 Date of Discharge: Feb 19, 2017 Providers: Admitting Physician: Gonsalo Hart MD Primary Care Physician: Kev Hernandez MD Attending Physician: Gonsalo Hart MD Diagnosis at Time of Discharge Diagnosis at Time of Discharge Anemia secondary to medication side effect Consultations none Procedures XRay, CTs & MRIs . X-RAY CHEST ONE VIEW, PORTABLE IMPRESSION: No definite metastatic disease, no source of right-sided chest pain is found. A Port-A-Cath in normal position, right breast surgical clips laterally. Dictated by: Jhoan Aguilar M.D. on 02/17/2017 at 19:39 Brief History Ms. Sam is a 46-year-old female with past medical history of metastatic breast cancer who presented to the ED complaining of generalized malaise 2 weeks. Patient is currently undergoing chemotherapy and radiation treatment for her cancer since 2013 and were recently has been receiving chemotherapy treatments one week on and one week off until two weeks ago where she decided to not undergo last week's treatment as she was busy relocating and moving into a new house. She states that normally when she does not take her chemotherapy she will begin to feel better within 1-2 days of stopping treatment, subsequently feeling better and better each additional day until almost feeling back to normal after 2 weeks. She states this time is much different in that she still feels "really bad". She states that she is lethargic with low energy , confused and having a hard time concentrating on tasks or remembering events during the day sometimes even what time it is during the day, this is been accompanied with dizziness. She denies fever/chills, cough/chest pain/SOB, palpitations, abdominal pain, black or tarry stool. She does state that she has a right sided flank pain 2 months which she has been told is due to cancer metastasis to her ribs. In the ED she was found to be severely anemic with hemoglobin and hematocrit of 5.7/18.7, white count of 1.3 and platelet count of 95. She also had a mild lactic acidosis at 2.3. Chest x-ray showed no definite metastatic disease or obvious source of right sided chest pain. She was given 1 unit of blood and transferred to the floor to receive an additional unit of blood. She was started on pain medication, stool guaiac negative. Hospital Course Pt is a 46 year old female with a hx of metastatic breast cancer admitted secondary to anemia requiring blood transfusion Anemia. Chronic. Present on admission. Ongoing - Most likely secondary to her maintenance medication side effects - Stool guaiac negative - Type and cross, 2 units received, patient is transfused with 2 units H&H came back up appropriately - Follow up H&H prior to visit with oncologist Dr Smith in 1 week -- Patient is given iron supplementation, bowel regimen Metastatic breast cancer with history of chemotherapy and radiation. Present on admission. Ongoing - Oncology consult by ED doc - Patient without chemotherapy 2 weeks - Continue pain control with Dilaudid: Discussed case with , who feels that we may increase her meds appropriately to control her pain, he states that Dr. Smith has not seen her a month or so (probably because she asked for time off to move and missed an appointment). - Continue home pain medications fentanyl but d/c oxycodone. I have explained to her that she can get Dilaudid here, but as her insurance does not cover Dilaudid (patient tells me this ) and we will be converting her usage here to oxycodone prior to her discharge. She is agreeable to this. -- Her current usage of Dilaudid and oxycodone within the last 24 hours is converted to oxycodone and she is given prescription for enough pain medication to go home with. She is asked to continue fentanyl patch. Pancytopenia. Present on admission. Ongoing - Post likely secondary to chemotherapy - Blood transfusion as above Lactic acidosis. Present on admission. Ongoing - Most likely secondary to metastatic cancer with resultant anemia Possible UTI. Present on admission. Ongoing - Urinalysis showed WBC 6-10, trace leuk esterase -- UTI was ruled out cultures did not grow any organisms Anxiety. Present on admission. Ongoing - Continue home lorazepam Depression - Continue home fluoxetine Hypertension present on admission. Ongoing - Hold home Lisinopril Patient Status: Patient was admitted under inpatient status with expected length of stay greater than two midnights due to severity of presenting symptoms , risk of adverse event, and complexity of treatment plan. Exam Vital Signs (Last) Date Time Temp Pulse Resp B/P Pulse Ox O2 Delivery O2 Flow Rate FiO2 02/19/17 05:30 36.5 61 16 141/86 95 Room Air Exam General: Patient is walking back to her bed from the bathroom, well-developed, well-nourished, appropriately interactive. Sad at times HEENT: Normocephalic, atraumatic. External ears without defect. Neck: Supple with full range of motion. No jugular venous distension. Cardiovascular: Regular rate and rhythm with no murmurs, rubs, or gallops appreciated Pulmonary: Clear to auscultation bilaterally with no crackles, wheezes, or rhonchi. Normal respiratory effort with no use of accessory muscles. Extremities: Negative for edema Skin: Normal temperature, turgor, and texture Neurological: No focal deficits Psychiatric: Normal mood and affect. Alert and oriented to person, place, and time. Test 02/17/17 17:10 02/17/17 17:44 02/17/17 18:46 02/17/17 19:15 Sodium Level 141mEq/L (134-144) Potassium Level 3.5mEq/L (3.5-5.2) Chloride Level 99mEq/L (97-108) Carbon Dioxide Level 26mmol/L (18-29) Blood Urea Nitrogen 10mg/dL (6-24) Creatinine 0.72mg/dL (0.57-1.00) Estimat Glomerular Filtration Rate 124mL/min (>59) Glucose Level 132mg/dL (60-99) Calcium Level 9.4mg/dL (8.5-10.1) Magnesium Level 2.0mg/dL (1.6-2.6) Aspartate Amino Transf (AST/SGOT) 19U/L (0-50) Alanine Aminotransferase (ALT/SGPT) 9U/L (0-32) Alkaline Phosphatase 77U/L (25-150) Total Protein 7.2g/dL (6.4-8.4) Albumin 3.5g/dL (3.4-5.0) Lipase 14U/L (13-60) Prothrombin Time 10.7sec (8.1-12.5) Prothromb Time International Ratio 1.00ratio Urine Color Yellow (YELLOW) Urine Appearance Hazy (CLEAR,HAZY) Urine pH 5.5 (5.0-8.0) Urine Specific [place] 1.020 (1.003-1.035) Urine Protein Tracemg/dL (NEG,TRACE) Urine Glucose (UA) Negativemg/dL (NEGATIVE) Urine Ketones Negativemg/dL (NEGATIVE) Urine Occult Blood Negative (NEGATIVE) Urine Nitrite Negative (NEGATIVE) Urine Bilirubin Negative (NEGATIVE) Urine Urobilinogen Normalmg/dL (NORMAL) Urine Leukocyte Esterase Trace (NEGATIVE) Urine RBC 0-2/hpf (0-2) Urine WBC 6-10/hpf (0-5) Urine Epithelial Cells Few/hpf (NONE-MOD) Urine Crystals Amorphous urates (NONE Urine Bacteria Few/hpf (NONE-FEW) Urine Hyaline Casts None/lpf (NONE) Urine Granular Casts None seen (NONE SEEN) Urine Waxy Casts None seen (NONE SEEN) Urine Red Blood Cell Casts None seen (NONE SEEN) Urine White Blood Cell Casts None seen (NONE SEEN) Urine Mucus Present (None Seen) Urine Trichomonas None seen (NONE SEEN) Urine Yeast None (NONE SEEN) Urinalysis Comment None Urine Culture Reflexed Indicated Haptoglobin 419mg/dL (34-200) Total Bilirubin 0.2mg/dL (0.0-1.2) Direct Bilirubin < 0.2mg/dL (0.0-0.3) Test 02/18/17 04:30 02/19/17 06:20 Lactic Acid Level 1.1mmol/L (0.4-2.0) White Blood Count 1.4th/mm3 (3.8-10.1) Red Blood Count 2.71mil/mm3 (3.90-5.20) Hemoglobin 8.2g/dL (12.0-15.6) Hematocrit 23.3% (35.0-46.0) Mean Corpuscular Volume 86.0fL (81-100) Mean Corpuscular Hemoglobin 30.3pg (27.0-35.0) Mean Corpuscular Hemoglobin Concent 35.2% (32.0-37.0) Red Cell Distribution Width 16.4% (12.3-15.4) Platelet Count 79bil/L (150-400) Neutrophils (%) (Auto) 54.0% (40-74) Lymphocytes (%) (Auto) 34.0% (14-46) Monocytes (%) (Auto) 7.1% (4-12) Eosinophils (%) (Auto) 2.1% (0-5) Basophils (%) (Auto) 1.4% (0-3) Discharge Medications Discharge Medications Capecitabine (Capecitabine) 500 Mg Tablet 500 MG PO AM (Reported) 7 DAYS ON/7 DAYS OFF Capecitabine (Capecitabine) 500 Mg Tablet 1,000 MG PO HS (Reported) 7 DAYS ON/7 DAYS OFF Cetirizine HCl (Zyrtec) 10 Mg Capsule 10 MG PO HS (Reported) Fentanyl 12.5 mcg/hr Patch (Fentanyl 12.5 mcg/hr Patch) 1 Each Patch.td72 1 PATCH TRANSDERM Q3D (Reported) Fentanyl 75 mcg/hr Patch (Fentanyl 75 mcg/hr Patch) 1 Each Patch.td72 1 PATCH TRANSDERM Q3D (Reported) Ferrous Sulfate (Ferrous Sulfate) 325 Mg Tablet 325 MG PO BID Prescribed by: FRANCHESCA GREY DO Fluoxetine (Fluoxetine) 20 Mg Tablet 20 MG PO DAILY (Reported) Lisinopril (Lisinopril) 40 Mg Tablet 40 MG PO DAILY (Reported) Triamcinolone Acetonide (Nasacort) 10.8 Ml [place] 1-2 SPRAYS NS DAILY (Reported) As needed Lorazepam (Ativan) 0.5 Mg Tablet 1-3 TABLET PO Q6HRS PRN PRN For Insomnia ( Reported) Ondansetron ODT (Zofran ODT) 4 Mg Tablet 4-8 MG PO Q4H PRN PRN For Nausea/ Vomiting Prescribed by: KEV HERNANDEZ MD Polyethylene Glycol 3350 (Miralax) 17 Gm Powd.pack 17 GM PO DAILY PRN PRN For Constipation Prescribed by: FRANCHESCA GREY DO Sennosides (Senna) 8.6 Mg Tablet 17.2 MG PO BID PRN PRN For Constipation Prescribed by: FRANCHESCA GREY DO oxyCODONE (oxyCODONE) 10 Mg Tablet 10 MG PO Q4H PRN PRN For Pain Prescribed by: FRANCHESCA GREY DO Followup Plan Follow-up plan Follow up H&H in one week to be sent to dr. Smith F/U with Dr. Smith in one week F/U with PCP in 2 weeks Discharge Diet: No restrictions Discharge Activity: No restrictions Patient Instructions Please take iron supplementation as prescribed. Use regular bowel regimen as iron and pain meds will cause constipation Follow up H&H in one week to be sent to dr. Smith Time spent 30 minutes Franchesca Grey DO Feb 19, 2017 10:18
[2017-02-19] MEDS ORDERED: OXYC10TA8 PO (10:41)
[2017-02-19] MEDS ORDERED: FERR-83 PO (10:43)
--- NOTE | 2017-02-19 11:52 | NUR ---
Social Work: Discharge D: EMR reviewed. Pt is on day 2 of hospitalization. Per MD in AM multi-disciplinary rounds, pt is medically stable and will discharge today. KUSHAL confirmed that pt's sister will provide transport home via POV. SW does not anticipate any discharge needs at this time but will continue to follow if needs arise. A: Pt who is independent at baseline. P: SW confirmed that pt's sister (Maggie Paulino [phone]) will provide transport home via POV today. SW does not anticipate any discharge needs at this time but will continue to follow if needs arise. JAMARI Muse
--- NOTE | 2017-02-19 12:22 | NUR ---
Discharge To home via private vehicle with son at 12:15. Steady transfer to wheelchair. Port de-accessed by IV therapy. Pt expresses understanding of all discharge instructions and care notes, including followup and medications. Rx given. All personal belongings sent with pt, including wallet from hospital safe.
== END 2017-02-19 12:15 | disposition home or self-care (01) ==
LOC: SED 16:34 → OSC 19:41
PROVIDERS: ADMIT Hospitalist; ATTEND Hospitalist
DX: D64.89 Other specified anemias (principal); T40.4X5A Adverse effect of other synthetic narcotics, initial encounter; T45.0X5A Adverse effect of antiallergic and antiemetic drugs, initial encounter; T45.1X5A Adverse effect of antineoplastic and immunosuppressive drugs, initial encounter; T45.4X5A Adverse effect of iron and its compounds, initial encounter; T43.225A Adverse effect of selective serotonin reuptake inhibitors, initial encounter; T46.4X5A Adverse effect of angiotensin-converting-enzyme inhibitors, initial encounter; T49.6X5A Adverse effect of otorhinolaryngological drugs and preparations, initial encounter; C41.9 Malignant neoplasm of bone and articular cartilage, unspecified; M89.70 Major osseous defect, unspecified site; C50.912 Malignant neoplasm of unspecified site of left female breast; Z51.11 Encounter for antineoplastic chemotherapy; D61.810 Antineoplastic chemotherapy induced pancytopenia; E87.2 Acidosis; F41.9 Anxiety disorder, unspecified; F32.9 Major depressive disorder, single episode, unspecified
CPT/HCPCS: 36415; 36430; 71010; 80053; 81000; 81025; 82247; 82274; 83010; 83605; 83690; 83735; 85025; 85610; 86880; 86922; 87040; 87086; 87088; 96374; 96375; 99285; G0378; J1170; J3010; J7040; P9021

== ENCOUNTER 2017-02-19 21:17 | Emergency (ER) | payer MEDICARE ==
[~2017-02-19] VITALS: Ht 170.2 cm; Wt 75.5 kg
[~2017-02-19 21:17] MED LIST changes: -CEPH-512 PO; -CITA20TA11 PO; +FERR-83 PO; -LETR2.5T4 PO; -LEVO25TA5 PO; -Meclizine Hcl PO; -OLAN5TAB PO; +POLY17PO6 PO; -PROM25SU47 RECTAL; +SENN-133 PO
[2017-02-19 21:33] VITALS: BP 136/95; PULSE 78; RESP 18; O2SAT 95
[2017-02-19] MEDS ORDERED: 0.9% Sodium Chloride 1,000 ML IV ONE (23:10)
--- NOTE | 2017-02-19 23:13 | ED.REPORT ---
HPI-Overdose/Alcohol Toxicity Date of Service Feb 19, 2017 ED Provider: Spencer Mei MD The patient is a 46 year old female with a medical history including hypertension and metastatic breast cancer currently being treated with chemotherapy who presents to the ED reporting restlessness onset this evening. The patient was discharged from the hospital today after a two night stay for anemia. When she got home around 1300 today she took 3mg Lorazepam then laid down for a nap. When she woke up she experienced generalized muscle spasms and felt shaky, as though she wanted to "crawl out of her skin." The patient took a hot shower and tried to relax, with no relief. Her symptoms are alleviated with moving around. The patient denies other symptoms. She has had similar symptoms in the past after taking Reglan. Nursing Notes Stated Complaint: MUSCLE SPASMS, CANCER Chief Complaint: General Complaint Nursing Notes Reviewed: Yes Allergies: Coded Allergies: Penicillins (Verified Allergy, Severe, RASH, 02/19/17) metoclopramide (Verified Allergy, Intermediate, tremors, 02/19/17) prochlorperazine (Verified Allergy, Unknown, 02/19/17) Sulfa (Sulfonamide Antibiotics) (Verified Adverse Reaction, Intermediate, N&V, 02/19/17) ciprofloxacin (Verified Adverse Reaction, Mild, MALAISE, 02/19/17) metoclopramide HCl (Verified Adverse Reaction, Mild, JITTERINESS, 02/19/17) Uncoded Allergies: APRICOTS (Allergy, Severe, UNKNOWN, 05/20/13) "My lips swell" CATS (Allergy, Unknown, UNKNOWN, 04/24/12) DUST MITES (Allergy, Unknown, UNKNOWN, 04/24/12) SULFITES (Allergy, Unknown, UNKNOWN, 04/24/12) TREE POLLEN (Allergy, Unknown, UNKNOWN, 04/24/12) Scheduled Capecitabine (Capecitabine) 500 Mg Tablet 500 MG PO AM 7 DAYS ON/7 DAYS OFF Capecitabine (Capecitabine) 500 Mg Tablet 1,000 MG PO HS 7 DAYS ON/7 DAYS OFF Cetirizine HCl (Zyrtec) 10 Mg Capsule 10 MG PO HS Fentanyl 12.5 mcg/hr Patch (Fentanyl 12.5 mcg/hr Patch) 1 Each Patch.td72 1 PATCH TRANSDERM Q3D Fentanyl 75 mcg/hr Patch (Fentanyl 75 mcg/hr Patch) 1 Each Patch.td72 1 PATCH TRANSDERM Q3D Ferrous Sulfate (Ferrous Sulfate) 325 Mg Tablet 325 MG PO BID Fluoxetine (Fluoxetine) 20 Mg Tablet 20 MG PO DAILY Lisinopril (Lisinopril) 40 Mg Tablet 40 MG PO DAILY Triamcinolone Acetonide (Nasacort) 10.8 Ml [place] 1-2 SPRAYS NS DAILY Scheduled PRN Lorazepam (Ativan) 0.5 Mg Tablet 1-3 TABLET PO Q6HRS PRN PRN For Insomnia Ondansetron ODT (Zofran ODT) 4 Mg Tablet 4-8 MG PO Q4H PRN PRN For Nausea/ Vomiting Polyethylene Glycol 3350 (Miralax) 17 Gm Powd.pack 17 GM PO DAILY PRN PRN For Constipation Sennosides (Senna) 8.6 Mg Tablet 17.2 MG PO BID PRN PRN For Constipation oxyCODONE (oxyCODONE) 10 Mg Tablet 10 MG PO Q4H PRN PRN For Pain General Time Seen by Provider: 22:41 Chief Complaint Other (Restlessness) Hx Obtained From: Patient Arrived By: Walk-in Onset Occurred: 5 - 8 hours ago Symptom Duration: Since onset Severity: Current: No pain currently Severity: Maximum: No pain Modified by: Moving around Related History: Reports: Anxiety, Depression Immunizations: Tetanus up to date Recent Healthcare: Recent hospitalization Similar Sx Previous: Yes Past Medical History Past Medical History Notes: Oncologist Gabo Smtih Past Medical History 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 Reccurrence of breast cancer with metastasis to spine and hips, July 2014 L sided breast cancer with chemo ([id number]) and radiation Hypertension Anxiety Depression Polycystic ovaries Hyperlipidemia C. difficile colitis Chronic sinusitis Past Surgical History bone biopsy L3 pedicle and L3 vertebral body 10/01/14 - pathology postive for breast CA recurrence sinus polyp removal lumpectomy for CA, portacath placement hysterectomy tubal ligation uterine ablation Family History Father hypertension Smoking History Former Smoker Social History Alcohol Use: Denies alcohol use Drug Use: Denies drug use Other Social History: Good social support, Local resident Ambulatory Status Independent Review of Systems Review of Systems Note: + Restlessness, generalized muscle spasms Constitutional: Denies: Fever Respiratory: Denies: Non-productive cough, Shortness of breath GI: Denies: Diarrhea, Vomiting Neurologic: Reports: Shaking Complete sys rev & neg: except as marked. Physical Exam Initial Vital Signs Vital Signs (First) Date Time Temp Pulse Resp B/P Pulse Ox O2 Delivery O2 Flow Rate FiO2 02/19/17 21:33 35.9 78 18 136/95 95 Room Air Initial VS: Reviewed, Vital signs abnormal Head / Eyes: Atraumatic, Normocephalic ENT: Conjunctiva normal, No scleral icterus Neck: Supple, Full range of motion Skin: Warm, Dry, No cyanosis General/Constitutional: Awake, Alert Respiratory / Chest: Breath sounds NL, Breath sounds = bilat, No respiratory distress Cardiovascular: Heart rate NL, Regular rhythm, Heart sounds NL Neurologic: Oriented X3, Speech NL, No motor deficits (5/5 muscle strength bilateral upper and lower extremities), No sensory deficits Restless extraneous muscle movements Psychiatric: Affect NL, Mood NL Interpretation & Diagnostics URINE DRUG SCREEN: + Benzodiazepines + Opiates + Oxycodone Otherwise Negative URINE : Negative URINE DIPSTICK: Bedside Urine Specific [place] * 1.005 Bedside Urine pH * 7 Bedside Urine Leukocyte Esterase * Trace Bedside Urine Nitrite * Negative Bedside Urine Protein * Trace Bedside Urine Glucose * Normal Bedside Urine Ketones * + Small Bedside Urine Urobilinogen * Normal Bedside Urine Bilirubin * Negative Bedside Urine Occult Blood * Trace Urine to Lab * Yes Re-Eval/Medical Decision Med Decision/Clinical Course 46-year-old female with what appears to be a dystonic reaction with restless legs and some agitation. The cause of this is uncertain. She was given Benadryl with complete relief. She was given her evening pain medications and discharged home in improved condition. Source of Hx: Old records Re-Evaluation/Progress #1: Time of Eval: 12:15 Patient Status: Condition improved Re-Evaluation/Progress Note: Patient was sleeping but upon awakening reports she is feeling better and requests pain medication. Re-Evaluation/Progress #2: Time of Eval: 01:03 Patient Status: Condition improved Re-Evaluation/Progress Note: Discussed with patient diagnosis and plan for discharge. Follow-up and return to the ER instructions given. Patient agrees with plan for care and all questions were addressed. Counseled Regarding: Diagnosis, Need for follow-up, When/why to return to ED Discharge & Departure Impression: Primary Impression: Dystonia Disposition: Home Discharge Condition All VS Reviewed: Yes Condition: Improved Additional Instructions: Your symptoms appear to be due to a medication reaction called dystonia. This would be similar to what happened in the past to metoclopramide (Reglan). It is not clear which medication you are reacting to. Benadryl is the treatment of choice. If you have recurrent symptoms, take oral Benadryl and follow up with your doctor or here in the emergency room. Contact me at [phone] between the hours of 9 PM and 6 AM tonight or tomorrow night if you have further concerns or questions.Maria Elena Sims Referrals: Kev Lyn MD (PCP) Scribe Attestation Portions of this note were transcribed by Noreen Barnard. I, Dr. Mei, personally performed the history, physical exam, and medical decision-making; I reviewed and confirmed the accuracy of the information in the transcribed note. Signed by: Milagros Malin, 02/20/2017, 02:50 copies to: Kev Lyn MD, Howard L MD Feb 19, 2017 23:13 NOREEN BARNARD Feb 19, 2017 23:27
[2017-02-19] MEDS ORDERED: diphenhydrAMINE 50 mg Capsule PO ONE (23:20)
[2017-02-19] MEDS ORDERED: diphenhydrAMINE 25 mg Capsule PO ONE (23:35)
[2017-02-20] MEDS ORDERED: Ondansetron 8 mg ODT Tablet PO ONE (00:55)
[2017-02-20 01:21] VITALS: BP 132/90; PULSE 73; RESP 22; O2SAT 96
== END 2017-02-20 01:59 | disposition home or self-care (01) ==
LOC: SED 21:17
DX: G24.9 Dystonia, unspecified (principal); I10 Essential (primary) hypertension; C50.919 Malignant neoplasm of unspecified site of unspecified female breast; E78.5 Hyperlipidemia, unspecified; Z87.891 Personal history of nicotine dependence; Z88.0 Allergy status to penicillin; Z88.2 Allergy status to sulfonamides; Z88.1 Allergy status to other antibiotic agents; Z88.8 Allergy status to other drugs, medicaments and biological substances; Z91.09 Other allergy status, other than to drugs and biological substances

== ENCOUNTER 2017-02-26 06:44 | Inpatient (IN) | payer MEDICARE ==
[~2017-02-26] VITALS: Ht 170.2 cm; Wt 76.6 kg
[2017-02-26 06:49] VITALS: BP 124/79; PULSE 131; RESP 20; O2SAT 94
--- NOTE | 2017-02-26 07:07 | ED.REPORT ---
HPI-General Illness Date of Service Feb 26, 2017 ED Provider: Roderick Villafana MD History of Present Illness: [employer], crashing, IT called - > Aware The pt is a 46 y/o female w/ a hx of metastatic cancer presenting to the ED complaining of increased confusion. She describes having difficulty articulating her thoughts, talking "nonsense" and put her dress inside-out and around her waist. She was also confused last week but not as severely as she is today.She is also experiencing a non-productive cough which began three days ago , fever, generalized weakness, back pain, and describes being "always" nauseas. Nursing Notes Stated Complaint: METASTATIC CANCER Chief Complaint: General Complaint Nursing Notes Reviewed: Yes ([id number] not reconciled) Allergies: Coded Allergies: Penicillins (Verified Allergy, Severe, RASH, 02/19/17) metoclopramide (Verified Allergy, Intermediate, tremors, 02/19/17) prochlorperazine (Verified Allergy, Unknown, 02/19/17) Sulfa (Sulfonamide Antibiotics) (Verified Adverse Reaction, Intermediate, N&V, 02/19/17) ciprofloxacin (Verified Adverse Reaction, Mild, MALAISE, 02/19/17) metoclopramide HCl (Verified Adverse Reaction, Mild, JITTERINESS, 02/19/17) Uncoded Allergies: APRICOTS (Allergy, Severe, UNKNOWN, 05/20/13) "My lips swell" CATS (Allergy, Unknown, UNKNOWN, 04/24/12) DUST MITES (Allergy, Unknown, UNKNOWN, 04/24/12) SULFITES (Allergy, Unknown, UNKNOWN, 04/24/12) TREE POLLEN (Allergy, Unknown, UNKNOWN, 04/24/12) Scheduled Capecitabine (Capecitabine) 500 Mg Tablet 500 MG PO AM 7 DAYS ON/7 DAYS OFF Capecitabine (Capecitabine) 500 Mg Tablet 1,000 MG PO HS 7 DAYS ON/7 DAYS OFF Cetirizine HCl (Zyrtec) 10 Mg Capsule 10 MG PO HS Fentanyl 12.5 mcg/hr Patch (Fentanyl 12.5 mcg/hr Patch) 1 Each Patch.td72 1 PATCH TRANSDERM Q3D Fentanyl 75 mcg/hr Patch (Fentanyl 75 mcg/hr Patch) 1 Each Patch.td72 1 PATCH TRANSDERM Q3D Fluticasone Propionate (Flonase Allergy Relief) 50 Mcg/Actuation Ball.susp 9.9 ML NS DAILY Lisinopril (Lisinopril) 40 Mg Tablet 40 MG PO DAILY Scheduled PRN Lorazepam (Ativan) 0.5 Mg Tablet 1-3 TABLET PO Q6HRS PRN PRN For Insomnia Ondansetron ODT (Zofran ODT) 4 Mg Tablet 4-8 MG PO Q4H PRN PRN For Nausea/ Vomiting Polyethylene Glycol 3350 (Miralax) 17 Gm Powd.pack 17 GM PO DAILY PRN PRN For Constipation Sennosides (Senna) 8.6 Mg Tablet 17.2 MG PO BID PRN PRN For Constipation oxyCODONE (oxyCODONE) 10 Mg Tablet 10 MG PO Q4H PRN PRN For Pain General Time Seen by MD: 06:56 Chief Complaint Other (Confusion) Hx Obtained From: Patient Arrived By: Walk-in Sudden in Onset?: Yes Onset Occurred: 1 - 4 hours ago Symptom Duration: Since onset Recent Healthcare: No recent hospitalization, Recent doctor visit Similar Sx Previous: No Past Medical History Past Medical History Notes: Oncologist Gabo Smith ED visit February 18 with a hemoglobin of 5, requiring multiple unit transfusions Past Medical History 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 difficile colitis Chronic sinusitis Past Surgical History bone biopsy L3 pedicle and L3 vertebral body 10/01/14 - pathology postive for breast CA recurrence sinus polyp removal lumpectomy for CA, portacath placement hysterectomy tubal ligation uterine ablation Family History Father hypertension Smoking History Former Smoker Social History Alcohol Use: Denies alcohol use Drug Use: Denies drug use Other Social History: Good social support, Local resident Ambulatory Status Independent Review of Systems Full Review of Systems Constitutional: Reports: Fever, Weakness - generalized Respiratory: Reports: Non-productive cough GI: Reports: Nausea Musculoskeletal: Reports: Back pain Neurologic: Reports: Confusion Complete sys rev & neg: except as marked. Physical Exam Vital Signs Vital Signs Date Time Temp Pulse Resp B/P Pulse Ox O2 Delivery O2 Flow Rate FiO2 02/26/17 06:49 36.3 131 20 124/79 94 Room Air Initial VS: Reviewed, Vital signs abnormal General/Constitutional: Awake, Alert Appearance / Presentation: Positive: Pale Globally weak Head / Eyes: Atraumatic, Normocephalic ENT: Atraumatic, Airway patent Neck: Atraumatic, Supple, Full range of motion Respiratory / Chest: Atraumatic, Breath sounds NL, Breath sounds = bilat, No respiratory distress, No rales, No rhonchi, No wheezing Cardiovascular: Regular rhythm, Heart sounds NL Heart Rate / Rhythm: Positive: Tachycardia Abdomen: Atraumatic, Soft, Non-tender Back: Atraumatic, Full range of motion Upper Extremities Upper Extremity / MS: Atraumatic, Inspection NL, Full range of motion Skin: No rash, Warm, Dry Neurologic: No motor deficits, No sensory deficits Very slow but answers questions appropriately and can give a history. No focal deficits. Interpretation & Diagnostics Lab Results Interpretation Result Diagram: 02/26/17 0708 02/26/17 0708 Test 02/26/17 07:08 White Blood Count 3.5th/mm3 (3.8-10.1) Red Blood Count 2.86mil/mm3 (3.90-5.20) Hemoglobin 8.2g/dL (12.0-15.6) Hematocrit 25.9% (35.0-46.0) Mean Corpuscular Volume 90.6fL (81-100) Mean Corpuscular Hemoglobin 28.7pg (27.0-35.0) Mean Corpuscular Hemoglobin Concent 31.7% (32.0-37.0) Red Cell Distribution Width 16.5% (12.3-15.4) Platelet Count 90bil/L (150-400) Neutrophils (%) (Auto) 62.0% (40-74) Lymphocytes (%) (Auto) 29.0% (14-46) Monocytes (%) (Auto) 7.5% (4-12) Eosinophils (%) (Auto) 0.3% (0-5) Basophils (%) (Auto) 0.6% (0-3) Prothrombin Time 11.4sec (8.1-12.5) Prothromb Time International Ratio 1.06ratio Activated Partial Thromboplast Time 33.0sec (22.8-33.0) Sodium Level 135mEq/L (134-144) Potassium Level 4.2mEq/L (3.5-5.2) Chloride Level 94mEq/L (97-108) Carbon Dioxide Level 25mmol/L (18-29) Blood Urea Nitrogen 12mg/dL (6-24) Creatinine 0.88mg/dL (0.57-1.00) Estimat Glomerular Filtration Rate 99mL/min (>59) Glucose Level 128mg/dL (60-99) Lactic Acid Level 1.8mmol/L (0.4-2.0) Calcium Level 10.1mg/dL (8.5-10.1) Total Bilirubin 0.8mg/dL (0.0-1.2) Aspartate Amino Transf (AST/SGOT) 36U/L (0-50) Alanine Aminotransferase (ALT/SGPT) 16U/L (0-32) Alkaline Phosphatase 76U/L (25-150) Troponin T 0.010ug/L (0.0-0.011) Total Protein 7.8g/dL (6.4-8.4) Albumin 3.6g/dL (3.4-5.0) Lab Results Interpretation: CBC mild, nonspecific leukopenia-but no neutropenia, anemia improved-previous hemoglobin low at 50 week ago, mildly low platelets CMP normal Lactic acid normal Blood cultures 2 pending ECG Interpretation ECG Interpretation: Sinus tachycardia, no ischemic changes Interpreted by: ED physician X-Ray Chest Interpretation Chest Xray Interpretation: IMPRESSION: No acute disease Interpretation / Wet Read by: Wet read ED physician CT Head Interpretation IMPRESSION: 1. No acute intracranial abnormality. 2. Mild chronic white matter small vessel ischemic changes and cerebral volume loss. Dictated by: Lopez Lepe M.D. on 02/26/2017 at 8:16 Approved by: Lopez Lepe M.D. on 02/26/2017 at 8:18 Study: Head CT no contrast Interpretation / Wet Read by: Interpret - Radiologist Re-Eval/Medical Decision Med Decision/Clinical Course This is a 46-year-old female with known metastatic breast CA on chemotherapy, was recently required multiple unit transfusion for severe anemia as result of her therapy, he is brought in by family with complaints of weakness, poor intake for a few days, and worsening confusion. The family reports that she has had some mental status changes for a bit, but is now much more confused- that she is 300 rest backwards and wrong, she cannot figure out operated telephone her TV remote, and has not herself and that this is significantly worse in recent days. The nose it worse last night, and again today. There has been no focal deficits of isolated numbness or weakness and no headaches. Patient has remained pale, and lightheaded. She denies chest pain, pleuritic discomfort, leg swelling. She denies fevers, but reports a trace cough-no productive sputum. She denies dysuria. She denies cellulitis. On exam she is tachycardic, not febrile, hypoxic, or hypotensive. Globally weak, and is very slow-but is actually able to answer questions appropriately in the department and provide a reasonable history. She is pale, but has no focal deficits on exam. She is globally weak. He has no rash or exanthems, no murmurs. Abdomen soft nontender. A workup at this point was pursued. Accu-Chek was normal. Brain CT was negative. Chest x-ray was negative. Blood work revealed ongoing pancytopenia is, for very mild-nothing that would require intervention or explain the presentation today. About labs are normal. Blood cultures been sent given the risk of infection, but no specific findings of infection are evident. She is tachycardic, clinically dehydrated and receive IV fluids with some improvement in heart rate. As of this time in the eye indicate a pulmonary embolus as a cause of the patient's altered mentation and confusion, as the patient again while tachycardic is not hypoxic, hypotensive, or demonstrating signs of severe inadequate cerebral perfusion. Laboratory tests have not revealed clear marker of infection, although formal urinalysis is still pending. The plan is admission for further evaluation and management. The patient is on multiple pain medicines, which might be contributing-but the patient is not clinically sedated and shows no signs of respiratory depression. I discussed the case with oncology, who recommends obtaining an MRI with and without contrast for evaluation of possible metastases to the brain, and they will see the patient tomorrow. The patient is being admitted to the hospitalist service in the meantime. Patient admitted to the hopsitalist service for continued management. Source of Hx: Old records Time of Eval: 09:11 Re-Evaluation/Progress Note: Pt rechecked. Informed pt of need for admission. Pt understands and agrees with plan for admission. All questions addressed. Consultation #1: Referral / Consult Name: Ashley Iqbal DO Consulted With: Hospitalist Call Returned at: 08:57 Police Records Clerk: Will see patient, Agrees with eval, Agrees with plan, Accepts admit Consultation #2: Referral / Consult Name: Marycruz Arce MD Call Returned at: 09:19 Note: Discussed pt's case w/ Dr. Arce, oncologist. Advised to order a brain MRI w/ and w/o contrast and to have Barrie Smith see her tomorrow. Differential Diagnosis: Negative: Abdominal pain, Acute coronary syndrome, Diabetes mellitus, G-tube repair/replacement, Malingering, Neutropenia, Pneumonia Counseled Regarding: Diagnosis, Lab results, Need for admission Discharge & Departure Primary Impression: Confusion Additional Impressions: Metastatic breast cancer Tachycardia Anemia Anemia type: unspecified type Qualified Code: D64.9 - Anemia, unspecified Thrombocytopenia Leukopenia Leukopenia type: unspecified Qualified Code: D72.819 - Decreased white blood cell count, unspecified Disposition: ADMITTED TO HOSPITAL Discharge Condition All VS Reviewed: Yes Condition: Stable Referrals: Kev Lyn MD (PCP) Scribe Attestation Portions of this note were transcribed by Jerman Frey. I, Dr. Villafana personally performed the history, physical exam and medical decision-making; I reviewed and confirmed the accuracy of the information in the transcribed note. Signed by : Milagros Lawrence, 02/26/17 and 0855. copies to: Kev Lyn MD, Matthew F MD Feb 26, 2017 07:07 Jerman Frey Feb 26, 2017 07:21
[2017-02-26] MEDS ORDERED: Ondansetron 2 mg/mL 2 mL Inj IVPUSH ONE (07:20)
[2017-02-26 07:22] LABS: BASOPHILS % (AUTO) 0.6 % (0-3); EOSINOPHILS % (AUTO) 0.3 % (0-5); MONOCYTES % (AUTO) 7.5 % (4-12); Mean Corpuscular Hemoglobin 28.7 pg (27.0-35.0); Mean Corpuscular Volume 90.6 fL (81-100); Platelet Count 90 bil/L (150-400)
[2017-02-26] MEDS: HYDROmorphone 0.5 mg/0.5 mL iSecure Syringe IVPUSH PRN ×2 (07:34→20:43)
[2017-02-26 07:37] LABS: INR 1.06 ratio
[2017-02-26 07:44] LABS: TROPONIN T 0.01 ug/L (0.0-0.011)
[2017-02-26] MEDS ORDERED: 0.9% Sodium Chloride 1,000 ML IV ONE (07:50)
[2017-02-26] MEDS ORDERED: FLUT9.9S NS (08:25)
--- NOTE | 2017-02-26 08:25 | DRSVH ---
PROCEDURE: CT BRAIN WITHOUT CONTRAST ([id number]) INDICATIONS: Altered LOC and history of metastatic breast cancer. TECHNIQUE: Noncontrast 4.5 mm thick angled axial sections acquired from the foramen magnum to the vertex, with c oronal reformats. COMPARISON: [facility], CT, CT CHEST ABD PELVIS W CON, 12/01/2016, 10:50. [facility], CT, CT BRAIN WO CON, 04/09/2016, 20:39. FINDINGS: Image quality: Excellent. CSF spaces: Basal cisterns are patent. No extra-axial fluid collections. The ventricles are symmet ángel in size and shape. There is mild cerebral volume loss, with resultant ventricular and sulcal pro minence. Brain: No intracranial hemorrhage, mass, or mass effect. There are a few subcortical, periventricul ar and deep white matter hypodensities consistent with mild chronic small vessel ischemic changes. Skull and face: Calvarium and visualized facial bones are intact, without suspicious lesions. Sinuses: Visualized sinuses and mastoids are clear. IMPRESSION: 1. No acute intracranial abnormality. 2. Mild chronic white matter small vessel ischemic changes and cerebral volume loss. Dictated by: Lopez Lepe M.D. on 02/26/2017 at 8:16 Approved by: Lopez Lepe M.D. on 02/26/2017 at 8:18
[2017-02-26] MEDS ORDERED: Alum-Mag Hydrox-Simeth 30 mL Suspension PO PRN ×2 (09:35→11:55)
[2017-02-26] MEDS ORDERED: 0.9% Sodium Chloride 1,000 ML IV SCH (09:35)
[2017-02-26] MEDS ORDERED: Ondansetron 2 mg/mL 2 mL Inj IVPUSH PRN (09:35)
[2017-02-26 10:39] VITALS: BP_SYST 115; BP_SYST 118; BP_DIAS 74; BP_DIAS 77; PULSE 107; PULSE 115; RESP 16; RESP 18; O2SAT 95; O2SAT 96
[2017-02-26 10:43] VITALS: PULSE 95
[2017-02-26] MEDS ORDERED: Polyethylene Glycol (PEG) 17 Gm Powder PO PRN (11:55)
[2017-02-26] MEDS ORDERED: LORazepam 0.5 mg Tablet PO PRN (12:00)
--- NOTE | 2017-02-26 12:20 | DRSVH ---
PROCEDURE: X-RAY CHEST ONE VIEW, PORTABLE ([id number]) INDICATIONS: Altered LOC, tachycardia TECHNIQUE: One view of the chest was acquired. COMPARISON: [facility], CR, XR CHEST 1VW (PORTABLE), 02/17/2017, 19:12. FINDINGS: Surgical changes and devices: Left chest wall subclavian Port-A-Cath is stable in position. Multiple surgical clips are redemonstrated in the right breast. Lungs and pleura: No pleural effusions or pneumothorax. Lungs are clear. Mediastinum: Mediastinal contours appear normal. Heart size is normal. Bones and chest wall: No suspicious bony lesions. Overlying soft tissues appear unremarkable. IMPRESSION: 1. No acute cardiopulmonary disease. Dictated by: Lopez Lepe M.D. on 02/26/2017 at 12:12 Approved by: Lopez Lepe M.D. on 02/26/2017 at 12:13
[2017-02-26 12:22] LABS: APPEARANCE,URINE CLEAR (CLEAR,HAZY); COLOR,URINE YELLOW (YELLOW); OCCULT BLOOD,URINE MODERATE (NEGATIVE)
[2017-02-26 12:23] LABS: UROBILINOGEN,URINE NORMAL (NORMAL)
[2017-02-26] MEDS: 0.9% Sodium Chloride 1,000 ML IV SCH ×2 (12:38→21:52)
--- NOTE | 2017-02-26 14:25 | PCM.HPMED ---
Subjective Date of Service Feb 26, 2017 Primary Provider: Admitting Physician: Ashley Iqbal DO Primary Care Physician: Kev Lyn MD Attending Physician: Ashley Iqbal DO Allergies Coded Allergies: Penicillins (Verified Allergy, Severe, RASH, 02/19/17) metoclopramide (Verified Allergy, Intermediate, tremors, 02/19/17) prochlorperazine (Verified Allergy, Unknown, 02/19/17) Sulfa (Sulfonamide Antibiotics) (Verified Adverse Reaction, Intermediate, N&V, 02/19/17) ciprofloxacin (Verified Adverse Reaction, Mild, MALAISE, 02/19/17) metoclopramide HCl (Verified Adverse Reaction, Mild, JITTERINESS, 02/19/17) Uncoded Allergies: APRICOTS (Allergy, Severe, UNKNOWN, 05/20/13) "My lips swell" CATS (Allergy, Unknown, UNKNOWN, 04/24/12) DUST MITES (Allergy, Unknown, UNKNOWN, 04/24/12) SULFITES (Allergy, Unknown, UNKNOWN, 04/24/12) TREE POLLEN (Allergy, Unknown, UNKNOWN, 04/24/12) PMH Social History Hx Alcohol Use: Yes (13 years ago) Hx Substance Use: No Hx Tobacco Use: Yes Smoking Status: Former Smoker Exam Vital Signs Vital Sign - Last Date Time Temp Pulse Resp B/P Pulse Ox O2 Delivery O2 Flow Rate FiO2 02/26/17 10:43 95 02/26/17 10:39 36.4 18 118/74 96 Room Air Lab and Diagnostics Result Diagram: 02/26/17 0708 02/26/17 0708 Assessment & Plan HPI: Patient is a 46-year-old female with known luminal like breast carcinoma with metastasis to the spine and hips currently on chemotherapy was brought into the emergency room by her sister (Maggie) due to altered mental status. During the patient interview she was slow and lethargic to respond to questioning and even some of her responses were incorrect as confirmed by the sister. The patient states that this is been happening over the last 2 weeks however the sister thought she should bring her in today because over the last day or so she has been putting her clothes on backwards and not realizing this, trying to flush the TV remote in her cell phone down the toilet, the patient has also even been confused as to where she is or the location of the bathroom. The patient currently denies any chest pain, recent fevers, chills. Patient does report occasional nausea especially when taking pain medications, abdominal pain, fatigue and back pain. The patient was recently admitted on 02/18/2017 secondary to acute blood loss anemia with a hemoglobin of 5. Patient was transfused 2 units PRBCs and her hemoglobin increased back to 8.2. Patient's hemoglobin remained stable at 8.2 with a hematocrit of 25.9. The patient's history was difficult to obtain secondary to her current altered mental status. Much of the patient's history was obtained from the sister ( Maggie) who is also the patient's current decision maker as well as extensive chart review. Home medications: Capecitabine Iron sulfate 325 twice a day Lisinopril 40 mg daily Fentanyl 75 g patch every 3 days Fentanyl 12.5 g patch every 3 days Fluoxetine 20 mg daily Oxycodone 10 mg every 4 when necessary pain Allergies: Penicillin (rash) Sulfa (nausea and vomiting) Apricots (angioedema of the lips) Cats Dust mites Tree pollen Ciprofloxacin (lethargy) Metoclopramide (tremors) Prochlorperazine PMHx: Metastatic luminal like breast cancer with osseous metastasis to the spine and hip Hypertension Anxiety Depression Polycystic ovaries Hyperlipidemia C. difficile Chronic sinusitis SHx: Bone biopsy L3 pedicle and L3 vertebral body on 10/01/2014 positive for breast cancer recurrence Sinus polypoid removal Lumpectomy for carcinoma Port-A-Cath placement Hysterectomy (questionable partial versus full) Tubal ligation Uterine ablation FHx: Mother age 81 renal cell carcinoma SocHx: Tobacco history: Patient quit smoking in 2015 previous half-pack per day smoker for 10-15 years Alcohol use: Patient denies Drug use: Patient denies ROS: A complete review of systems was performed or attempted to be performed. Please see HPI for pertinent positives, all other systems are negatives. Physical Exam: GEN: Patient was awake, alert, responding slowly to questions, sometimes her responses were incorrect HEENT: Pupils equal round and reactive to light, extraocular eye muscles intact , Neck soft supple, trachea midline, nomocephalic/atraumatic CV: +S1/S2, regular rate and rhythm, no murmur auscultated Respiratory: CTAB, no wheezes, rales, rhonchi GI: +bowel sounds x4, soft, compressible, nontender to palpation EXT: no clubbing, cyanosis, edema Neuro: Cranial nerves II-XII grossly intact Psych: mood and affect were sluggish Assessment and Plan 46-year-old female with past medical history of luminal like breast cancer with osseous metastasis presents with a complaint of altered mental status and confusion. Acute encephalopathy -MRI of the brain as she may have metastasis to the brain -Patient is claustrophobic and Ativan should be used prior to MRI -1mg IV Dilaudid to be given prior to MRI -UA negative -Blood cultures results pending Luminal like breast carcinoma with metastasis -Oncology consulted - Holding Capecitabine will allow oncology to dictate treatment -Continue pain management with fentanyl and oxycodone - May need palliative consult for pain management Pancytopenia secondary to recent chemo -Hem/onc consulted -Will continue to monitor and treat as necessary Chronic anemia - Hemoglobin stable - Continue Iron sulfate 325 twice a day - Continue to monitor Anxiety/depression -Continue fluoxetine 40 mg daily - Will verify dose with pharmacy or sister there is question if the patient is still taking this medication Hypertension -Continue lisinopril 40 mg daily -Continue to monitor Code Status: Full code DVT prophylaxis: Lovenox and SCDs Diet: Regular Disposition: Patient is currently encephalopathic and it is possibly secondary to cancer metastasis to the brain versus infection versus opioid overdose as the patient is on high-dose medications to control her pain. The patient currently does not have a white count and less likely that this is secondary to infection. After discussion with oncology (Dr. Arce) he agrees that it is most important to obtain the MRI of her brain and will continue with opiate medications to control the pain in order to get an MRI which was part of the reason why she was not able to get one today. The patient's sister (Maggie) is a person of contact and the one who will make the patient's medical decisions. Due to the nature of the patient's current diagnosis anticipated stay is greater than 2 midnight Resuscitation Status: CPR: Attempt Resuscitation Time spent 60 minutes Ashley Iqbal DO Feb 26, 2017 12:37
--- NOTE | 2017-02-26 15:46 | PCM.ADCARE ---
Advance Care Planning Note CODE STATUS: Purpose of encounter: Goals of care Parties in attendance: The patient, her sister Dr. Farida Serrano Decisional capacity: Poor Diagnoses: Metastatic breast carcinoma Acute encephalopathy Anemia Hypertension Plan: The patient and her sister are aware of the current diagnosis and would like to continue to be full code. The patient and her sister understands that this means for chest compressions, intubation, pressors, and all measures involved with CPR. CODE STATUS: Full code Time spent with advanced care planning: Greater than 16 minutes Ashley Iqbal DO Feb 26, 2017 15:45
[2017-02-26 15:59] VITALS: BP 102/71; PULSE 109; RESP 18; O2SAT 92
[2017-02-26] MEDS: Ondansetron 2 mg/mL 2 mL Inj IVPUSH PRN ×3 (16:33→22:33)
[2017-02-26] MEDS ORDERED: HYDROmorphone 1 mg/mL Inj IVPUSH ONE (17:55)
--- NOTE | 2017-02-26 19:26 | NUR ---
Admission/MRI/pain management female patient admitted to room 2001 at about 1030 this morning. Pt alert and able to answer orientation questions appropriately, however reports sluggish mentation and mental fogginess. peripheral IV site SL upon arrival. Left chest wall portacath later access with tko fluids for patency. Pt able to ambulate with cane and sba from gurney to bed. Pt ordered for MRI of head, pt required pre meds for anxiety. meds given per md order to comfort of patient for procedure. MRI unsuccessful, MD aware and MRI rescheduled. Pt reported moderate to severe back pain despite fentanyl patch in place. Pt given oxycodone per md order, effective results. pt sleeping upon follow up. pt also given zofran pre pain med for treatment of chronic nausea. will continue to monitor.
[2017-02-26 20:00] VITALS: PULSE 95
[2017-02-26 21:23] VITALS: BP 95/56; PULSE 106; RESP 14; O2SAT 93
[2017-02-27] VITALS (15 sets, daily range): BP systolic 89–116; BP diastolic 53–76; PULSE 66–112; RESP 16–20; O2SAT 88–99
[2017-02-27] MEDS: HYDROmorphone 0.5 mg/0.5 mL iSecure Syringe IVPUSH PRN ×2 (01:48→03:49)
[2017-02-27] MEDS: Ondansetron 2 mg/mL 2 mL Inj IVPUSH PRN (03:48)
[2017-02-27 04:04] LABS: BASOPHILS % (AUTO) 0 % (0-3); EOSINOPHILS % (AUTO) 0 % (0-5); MONOCYTES % (AUTO) 10.5 % (4-12); Mean Corpuscular Hemoglobin 27.8 pg (27.0-35.0); Mean Corpuscular Volume 90.7 fL (81-100); NEUTROPHILS % (AUTO) 65.3 % (40-74); Platelet Count 78 bil/L (150-400)
--- NOTE | 2017-02-27 04:48 | NUR ---
SpO2/Pain/Nausea/Not Wanting MRI/Critical Lab Value Pt's SpO2 decreased tonight while sleeping and when drowsy and was 86%. Pt now has 3.5L NC O2 to help keep SpO2 >92%. Pt has been in 810-910 pain throughout the shift with little relief from the 0.5mg Dilaudid IV Push. Pt has been very nauseous throughout the shift as well and has had no PO intake other than sips of water. Pt has expressed that she does not want to get the MRI and she is afraid of the pain that will result from lying down on the table for the MRI. Pt has been reassured that she will have adequate pain meds and anti-anxiety meds prior to the MRI but she still feels unsure about having the MRI. Lab called with Critical Lab Value of Hgb 6.6 and MD has been made aware. Pt is to have a STAT redraw and if the Hgb is accurate the MD is ordering 2Units PRBCs and 1 Units Platelets to be transfused.
[2017-02-27] MEDS ORDERED: 0.9% Sodium Chloride 250 ML IV ONE ×2 (04:50)
[2017-02-27 05:24] LABS: BASOPHILS % (AUTO) 0.4 % (0-3); EOSINOPHILS % (AUTO) 0 % (0-5); Mean Corpuscular Hemoglobin 28.5 pg (27.0-35.0); Mean Corpuscular Volume 90.9 fL (81-100); NEUTROPHILS % (AUTO) 66.9 % (40-74); Platelet Count 84 bil/L (150-400)
[2017-02-27 05:58] LABS: Magnesium 1.8 mg/dL (1.6-2.6)
[2017-02-27] MEDS: 0.9% Sodium Chloride 1,000 ML IV SCH (07:52)
[2017-02-27] MEDS ORDERED: HYDROmorphone 1 mg/mL Inj IVPUSH ONE (08:00)
--- NOTE | 2017-02-27 08:05 | NUR ---
Loratadine Pt was unable to take her PO Loratadine at night due to her nausea.
--- NOTE | 2017-02-27 08:14 | DRSVH ---
PROCEDURE: CT ABDOMEN AND PELVIS WITHOUT CONTRAST ([id number]) INDICATIONS: Eval for internal hemorrhage TECHNIQUE: After the administration of oral contrast, 5 mm thick sections acquired from the diaphragms to the sy mphysis. 5 mm coronal and sagittal reformats were performed. For radiation dose reduction, the foll owing was used: automated exposure control, adjustment of mA and/or kV according to patient size. COMPARISON: [facility], CT, CT CHEST ABD PELVIS W CON, 12/01/2016, 10:50. FINDINGS: Image quality: Excellent. ABDOMEN: Lung bases: Mild right basilar atelectasis. Solid organs: There is possible hepatic steatosis otherwise liver and spleen are normal in size. Gal lbladder negative. Pancreas is normal in size. No adrenal nodules. Both kidneys are normal in size , without hydronephrosis or nephrolithiasis. There is prominent left renal contour bulge, presumably dromedary hump. This appears unchanged image 26 series 2. Peritoneum and bowel: No free fluid or free air. No evidence of bowel obstruction. Moderate amount of stool. Scattered incidental colonic diverticula. The rectum is decompressed and grossly unremarkable . The appendix not clearly seen however no suspicious right lower quadrant inflammatory changes. Nodes and vessels: No retroperitoneal or mesenteric adenopathy by size criteria. Aorta and inferior vena cava are normal in size. Miscellaneous: No ventral hernias. PELVIS: Genitourinary: Bladder wall thickness is normal. Miscellaneous: No inguinal hernias or adenopathy. Bones: Mottled lytic and sclerotic appearance throughout the bony pelvis, with a focal sclerotic les ion seen in the right posteromedial ilium measuring 5 mm. There is scattered degenerative disc diseas e and small Schmorl's nodes. Multifocal small areas of increased sclerosis are also noted presumably representing the patient's clinically reported history of osseous metastatic disease IMPRESSION: Redemonstration of diffuse osseous metastatic disease as before. No evidence of internal hemorrhage. Mild right lower lobe atelectasis Dictated by: Yann Ramirez M.D. on 02/27/2017 at 8:05 Approved by: Yann Ramirez M.D. on 02/27/2017 at 8:13
[2017-02-27] MEDS: Lisinopril 40 Tablet PO SCH (09:24)
[2017-02-27] MEDS: Fluticasone 0.05% 15 Spray/2 Gm 16 Gm Nasal Spray NASAL SCH (09:25)
--- NOTE | 2017-02-27 09:44 | DRSVH ---
PROCEDURE: MRI BRAIN WITHOUT CONTRAST ([id number]) INDICATIONS: Altered Mental Status, breast CA TECHNIQUE: Noncontrast axial T1 spin echo, axial T2 fast spin echo, sagittal and axial FLAIR, coronal T2 fast sp in echo, axial gradient echo, axial diffusion and ADC through the brain. COMPARISON: [facility], MR, BRAIN W/O CONTRAST, 10/03/2005, 6:13. [facility] , MR, MR BRAIN W&WO CON, 05/06/2016, 21:43. FINDINGS: Image quality: Diagnostic. Brain: There is no acute intra-axial or extra-axial hemorrhage. No extra-axial fluid collection is i dentified. There is no midline shift or mass effect. The orbits are grossly unremarkable. No focal parenchymal masses are identified. There is no parenchymal edema. Small foci of increased flair signal are noted within the deep white matter of the supratentorial brain, which are unchanged since the prior study. The most prominent is located within the inferior margin of the left frontal lobe (image 14, series 5). No restricted diffusion is present. The midline intracranial structures a re within normal limits. The major expected intracranial flow voids are visualized and unremarkable. No abnormal enhancement is present on the postcontrast images. No enhancing lesions are identified. The ventricles and cortical sulci are age-appropriate. Bones: The imaged osseous structures are grossly intact. No suspicious osseous lesions are identifie d. There may be mucous retention cysts within the inferior margin of the right maxillary sinus. Min imal because of thickening of the ethmoid air cells is present. No air-fluid levels are evident. Ot herwise, the included paranasal sinuses and mastoid air cells are clear. Extracranial soft tissues: The imaged overlying soft tissues of the face and head are grossly unremar kable. IMPRESSION: 1. No acute intracranial hemorrhage or ischemia. 2. Nonspecific white matter changes probably are be related to chronic small vessel ischemic changes . 3. No findings to suggest metastatic disease to the brain. Dictated by: Benjamin Mas M.D. on 02/27/2017 at 9:38 Approved by: Benjamin Mas M.D. on 02/27/2017 at 9:42
--- NOTE | 2017-02-27 10:29 | NUR ---
Social Work: Initial Assessment D: EMR reviewed. Pt is a 46 y/o female admitted for altered loc, breast cancer. Pt gave verbal consent to contact sister regarding discharge planning. KUSHAL placed T/C to pt's sister/primary contact, Maggie Rivero ([phone]) to conduct initial assessment. KUSHAL confirmed pt has been provided DPOA/advanced directive ppw and encouraged pt to provide a copy to the hospital. Pt's insurance is Medicare and PCP is Kev Lyn MD. Pt is also followed by Dr. Salinas and Dr. Smith in Oncology. Pt's primary contact is sister Maggie Paulino ([phone]) and can be contacted for discharge planning. Pt has no hx of HH or SNF. Pt does not have LTC insurance or VA benefits. Pt is independent with ADLs. Pt owns a FWW, cane, and wheelchair. Pt does not own any other DME. Pt uses a cane to ambulate at baseline. Pt drives. Pt is independent at baseline. Pt lives in [place] with her sister in a multi-story home with 0 steps to enter and 12 steps to the second and third levels. Pt's sister confirmed she will provide pt transport home via POV when pt is medically stable. KUSHAL does not anticipate any discharge needs at this time but will continue to follow if needs arise. A: Pt who is independent at baseline. P: Pt's sister (Maggie Paulino [phone]) confirmed she will provide pt transport home via POV when pt is medically stable. KUSHAL does not anticipate any discharge needs at this time but will continue to follow if needs arise. JAMARI Muse Addendum: 02/27/17 at 1033 by SARA RIVERA Amended: Links added.
[2017-02-27] MEDS ORDERED: HepLOK Flush 100 unit/mL 5 mL Inj IVFLUSH PRN (11:05)
[2017-02-27] MEDS ORDERED: Sodium Chloride LOK Flush 10 mL Syringe IVFLUSH PRN ×2 (11:05)
[2017-02-27] MEDS: 0.9% Sodium Chloride 250 ML IV SCH (11:13)
--- NOTE | 2017-02-27 11:54 | NUR ---
Pt. declining therapy this morning--palliative meeting. Will check again. Michael Diaz, OTR/L
--- NOTE | 2017-02-27 12:17 | NUR ---
Palliative Care Palliative Care received verbal order from Dr Hernandez 02/27/17 to assist with goals of care. Patient admitted 02/26/17. Maggie Rivero (sister) [phone], Emmanuel Sam (son) [phone] Palliative Care to follow. Radha Arango
--- NOTE | 2017-02-27 12:25 | PCM.CONPAL ---
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 Sensorium appears to have significantly improved since admission After my conversation with Dr. Smith, had wondered if the increase in fentanyl from 87 to 100 g patch had contributed to her encephalopathy, but on checking she still is only wearing 87 g (75 g +12 g patches). Palliative medicine consulted to assist with determination of goals of care and symptom management Summary of palliative recommendations: -Symptom management (Pain/other)- for now, continue fentanyl patches, total dosage strength 87 g per hour (patient is still wearing her 75 g +12 g patches from home). Reluctant to increase to 100 g patch given her recent encephalopathy. It does not sound as if she is overusing her oxycodone at home , taking (by her report) only 10-15 mg twice daily. Continue prn oxycodone and lorazepam as ordered. Monitor her mental status/pain control while in the hospital and adjust as needed. Consider outpatient palliative follow-up if desired by her oncology team. Management of her pancytopenia and other medical issues per hospitalist service. -DPOA/Advanced Directives/POLST- continues aggressive treatment for her metastatic breast cancer, and remains full code, particularly at this time as she is just about to embark on new chemotherapy regimen with exemestane and everolimus. Additional Medical Diagnoses with primary management by Hospitalist team include : Acute encephalopathy Luminal like breast carcinoma with metastasis Pancytopenia secondary to recent chemo Chronic anemia Anxiety/depression Hypertension Problems: End of Life Preferences Full code Goals of Care Continued aggressive anti-neoplastic therapy in hopes of obtaining stabilization Disposition Probably home Resuscitation Status Resuscitation Status: CPR: Attempt Resuscitation POLST Updates/Changes Previous POLST?: No . Pain: Mild Symptom management: Drowsiness/sleepiness, Pain, Delirium Pt History History of Present Illness Per admission H&P: 46-year-old female with known luminal like breast carcinoma with metastasis to the spine and hips currently on chemotherapy was brought into the emergency room by her sister (Maggie) due to altered mental status. During the patient interview she was slow and lethargic to respond to questioning and even some of her responses were incorrect as confirmed by the sister. The patient states that this is been happening over the last 2 weeks however the sister thought she should bring her in today because over the last day or so she has been putting her clothes on backwards and not realizing this, trying to flush the TV remote in her cell phone down the toilet, the patient has also even been confused as to where she is or the location of the bathroom. The patient currently denies any chest pain, recent fevers, chills. Patient does report occasional nausea especially when taking pain medications, abdominal pain, fatigue and back pain. The patient was recently admitted on 02/18/2017 secondary to acute blood loss anemia with a hemoglobin of 5. Patient was transfused 2 units PRBCs and her hemoglobin increased back to 8.2. Patient's hemoglobin remained stable at 8.2 with a hematocrit of 25.9. The patient's history was difficult to obtain secondary to her current altered mental status. Much of the patient's history was obtained from the sister ( Maggie) who is also the patient's current decision maker as well as extensive chart review. Palliative medicine consulted to assist with symptom management and in determination of goals of care Prior to visiting, I reviewed her extensive records in the EMR in detail, spoke with her bedside nurse, called and spoke by phone with her oncologist Dr. Smith. In reviewing his records, he noted that he adjusted dose of her fentanyl patch on 02/20 (he needed to reconfirm but thought that this was increased from 87 g ( 75+12 pateches) to 100 g size). He also indicated that her capecitabine has been discontinued as ineffective, and that they are awaiting insurance preauthorization before starting her on exemestane and everolimus. When I arrived, patient was just returning from the bathroom and getting back into bed. She was moving slowly and spoke slowly, but was fully oriented and quite appropriate. Said she continues to feel "blah" but that her pain is adequately controlled. She says she very much wants to go home as soon as possible. She was unable to remember her exact medication dosages- we checked and she is still wearing a fentanyl 75+ a fentanyl 12 patch on her left deltoid. No other patches in place and she has apparently not upgraded yet to the [address] Smith started on 02/20. She notes that she also uses her oxycodone at home, but no more than 10-15 mg twice a day, as well as her lorazepam infrequently. Other medications have been stable. Reviewed her study results with her and answered questions she had. 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 Her pancytopenia is being managed by her hospitalist team- she has received PRBCs so far. She had no other particular questions about her status or care, but remains committed to continuing chemotherapy under Dr. Smith's direction. Past Medical History Significant PMH Noted: Metastatic breast cancer with osseous metastasis to the spine and hip Hypertension Anxiety Depression Polycystic ovaries Hyperlipidemia C. difficile Chronic sinusitis Surgical history Bone biopsy L3 pedicle and L3 vertebral body on 10/01/2014 positive for breast cancer recurrence Sinus polypoid removal Lumpectomy for carcinoma Port-A-Cath placement Hysterectomy (questionable partial versus full) Tubal ligation Uterine ablation Social History Occupation: Now medically disabled. 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 [employer] Sister Maggie Rivero is identified as her best contact in computer and on white board in room- her contact numbers: Home [phone] Family Members Issues: When she arrived family members were very concerned about her altered mental status which has since improved Living Situation: Lives at home with her family Allergy Allergies Reviewed: Yes Medications Current Medications: Current Medications Hydromorphone HCl 0.5 mg 0.5 mg Q15MIN PRN IVPUSH Last administered on 03:49; Admin Dose 0.5 MG; Start 02/26/17 at 07:20; Stop 02/27/17 at 07:21; Status DC Sodium Chloride 1,000 ml @ 100 mls/hr Q10H IV Last administered on 02/26/17 11 :07; Admin Dose 100 MLS/HR; Start 02/26/17 at 09:35; Stop 02/26/17 at 15:47; Status DC Al Hydrox/Mg Hydrox/Simethicone 30 ml Q6 PRN PO; Start 02/26/17 at 09:35; Stop 02/26/17 at 15:47; Status DC Ondansetron HCl Dose range: 4 mg to 8 mg Q4H PRN IVPUSH; Start 02/26/17 at 09: 35; Stop 02/26/17 at 15:47; Status DC Acetaminophen 975 mg Q6H PRN PO; Start 02/26/17 at 09:35; Stop 02/26/17 at 15: 47; Status DC Enoxaparin Sodium 40 mg 40 mg DAILY SUBQ Last administered on 02/27/17 09:57; Admin Dose 40 MG; Start 02/27/17 at 08:30 Sodium Chloride 1,000 ml @ 100 mls/hr Q10H IV Last administered on 02/26/17 12 :38; Admin Dose 100 MLS/HR; Start 02/26/17 at 11:52 Al Hydrox/Mg Hydrox/Simethicone 30 ml Q6H PRN PO; Start 02/26/17 at 11:55 Ondansetron HCl 4 to 8 mg Q4H PRN IVPUSH Last administered on 02/27/17 03:48; Admin Dose 8 MG; Start 02/26/17 at 11:55 Senna 17.2 mg BID PRN PO; Start 02/26/17 at 11:55 Polyethylene Glycol 17 gm DAILY PRN PO; Start 02/26/17 at 11:55 Temazepam 30 mg HS PRN PO; Start 02/26/17 at 11:55 Acetaminophen 650 mg Q4H PRN PO; Start 02/26/17 at 11:55 Fentanyl 1 patch Q3D TOPICAL; Start 02/26/17 at 12:00; Stop 02/26/17 at 14:24; Status DC Lisinopril 40 mg DAILY PO Last administered on 02/27/17 09:24; Admin Dose 40 MG ; Start 02/27/17 at 08:30 Lorazepam 0.5mg to 1 mg QHS prn, ... HS PRN PO; Start 02/26/17 at 12:00 Loratadine 10 mg HS PO; Start 02/26/17 at 21:00 Fluticasone Propionate 2 spray DAILY NASAL Last administered on 02/27/17 09:25 ; Admin Dose 2 SPRAY; Start 02/27/17 at 08:30 Oxycodone HCl 10 mg Q4H PRN PO Last administered on 02/27/17 10:05; Admin Dose 10 MG; Start 02/26/17 at 12:00 Fentanyl 1 patch Q3D TOPICAL; Start 02/28/17 at 09:00 Fluoxetine HCl 40 mg DAILY PO Last administered on 02/27/17 09:25; Admin Dose 40 MG; Start 02/27/17 at 08:30 Ferrous Sulfate 325 mg 325 mg BIDWM PO Last administered on 02/27/17 09:24; Admin Dose 325 MG; Start 02/26/17 at 17:30 Sodium Chloride 250 ml @ 10 mls/hr Q24H IV Last administered on 02/27/17 11:13 ; Admin Dose 10 MLS/HR; Start 02/27/17 at 11:02 Scheduled Capecitabine (Capecitabine) 500 Mg Tablet 500 MG PO AM 7 DAYS ON/7 DAYS OFF Capecitabine (Capecitabine) 500 Mg Tablet 1,000 MG PO HS 7 DAYS ON/7 DAYS OFF Cetirizine HCl (Zyrtec) 10 Mg Capsule 10 MG PO HS Fentanyl 12.5 mcg/hr Patch (Fentanyl 12.5 mcg/hr Patch) 1 Each Patch.td72 1 PATCH TRANSDERM Q3D Fentanyl 75 mcg/hr Patch (Fentanyl 75 mcg/hr Patch) 1 Each Patch.td72 1 PATCH TRANSDERM Q3D Fluticasone Propionate (Flonase Allergy Relief) 50 Mcg/Actuation [place].susp 9.9 ML NS DAILY Lisinopril (Lisinopril) 40 Mg Tablet 40 MG PO DAILY Scheduled PRN Lorazepam (Ativan) 0.5 Mg Tablet 1-3 TABLET PO Q6HRS PRN PRN For Insomnia Ondansetron ODT (Zofran ODT) 4 Mg Tablet 4-8 MG PO Q4H PRN PRN For Nausea/ Vomiting Polyethylene Glycol 3350 (Miralax) 17 Gm Powd.pack 17 GM PO DAILY PRN PRN For Constipation Sennosides (Senna) 8.6 Mg Tablet 17.2 MG PO BID PRN PRN For Constipation oxyCODONE (oxyCODONE) 10 Mg Tablet 10 MG PO Q4H PRN PRN For Pain Objective Findings Exam Vital Sign - Last Date Time Temp Pulse Resp B/P Pulse Ox O2 Delivery O2 Flow Rate FiO2 02/27/17 11:15 93 02/27/17 08:15 36.7 18 115/69 98 Nasal Cannula 2.00 Intake and Output 02/26/17 02/26/17 02/27/17 Cumulative From/Thru 15:00 23:00 07:00 02/26/17 06:49 - 02/27/17 06:53 Intake Total 1099 ml 734 ml 600 ml 2433 ml Output Total 75 ml 775 ml 850 ml Balance 1024 ml -41 ml 600 ml 1583 ml Intake Oral 100 ml 400 ml 600 ml 1100 ml IV Total 999 ml 334 ml 1333 ml Output Urine Total 75 ml 775 ml 850 ml # Voids 6 6 # Bowel Movements 1 1 Objective Per hospitalist: GEN: Patient was awake, alert, responding slowly to questions- today when I spoke with her she was lucid and fully oriented, though continued to speak slowly HEENT: Pupils equal round and reactive to light, extraocular eye muscles intact , Neck soft supple, trachea midline, nomocephalic/atraumatic CV: +S1/S2, regular rate and rhythm, no murmur auscultated Respiratory: CTAB, no wheezes, rales, rhonchi GI: +bowel sounds x4, soft, compressible, nontender to palpation EXT: no clubbing, cyanosis, edema Neuro: Cranial nerves II-XII grossly intact Psych: mood and affect were sluggish Lab/Diagnostics Lab and Imaging results reviewed in detail in EMR. Time spent Total time 45 minutes; >50% face to face with patient, providing counselling regarding plans and recommendations, and in care coordination with her medical teams. copies to: Kev Lyn MD; Barrie Smith David F MD Feb 27, 2017 12:24 Shiva Joseph MD Feb 27, 2017 12:24
--- NOTE | 2017-02-27 15:56 | PCM.PNMED ---
Subjective Date of Service Feb 27, 2017 Subjective Patient is quite anxious and tremulous upon evaluation, she expresses frustration with her sister for not visiting her or bringing underwear per her request. She complains of 6-9/10 pain in multiple sites related to her radiation and bony metastases. She denies cardiac chest pain, SOB, nausea, vomiting, or diarrhea. She does state that she has little appetite. No significant overnight events Comprehensive ROS negative except as listed above. Exam Vital Signs Vital Sign - Last Date Time Temp Pulse Resp B/P Pulse Ox O2 Delivery O2 Flow Rate FiO2 02/27/17 13:43 37.2 66 18 105/63 02/27/17 12:23 88 Nasal Cannula 2.00 Intake and Output 02/26/17 02/26/17 02/27/17 Cumulative From/Thru 15:00 23:00 07:00 02/26/17 06:49 - 02/27/17 06:53 Intake Total 1099 ml 734 ml 600 ml 2433 ml Output Total 75 ml 775 ml 850 ml Balance 1024 ml -41 ml 600 ml 1583 ml Intake Oral 100 ml 400 ml 600 ml 1100 ml IV Total 999 ml 334 ml 1333 ml Output Urine Total 75 ml 775 ml 850 ml # Voids 6 6 # Bowel Movements 1 1 Exam Gen: A/O x3 anxious depressed woman in moderate acute distress secondary to pain Neck: Supple, non tender, no thyromegaly, no JVD HEENT: PERRL, EOMI, no scleral icterus, mild conjunctival pallor CV: RRR, no murmurs rubs or gallops Resp: Lungs CTA BL, no wheezing rales or rhonchi Abd: soft, diffusely tender to palpation, no rebound or guarding, BS + 4Q Extr: No clubbing cyanosis or edema Neuro: CN 2-12 grossly intact, no focal neurologic deficit Psych: Patient has difficulty with recent memory and word finding at times, expresses frustration with her own declining mental acuity IVs and Medications Medications Reviewed: Medications were reviewed in detail Lab and Diagnostics Item Value Date Time Red Blood Count 2.53 mil/mm3 L 02/27/17 05 Mean Corpuscular Volume 90.9 fL 02/27/17514 Mean Corpuscular Hemoglobin 28.5 pg 02/27/17514 Mean Corpuscular Hemoglobin Concent 31.3 % L 02/27/17 0515 Red Cell Distribution Width 16.4 % H 02/27/17 05 Neutrophils (%) (Auto) 66.9 % 02/27/17514 Lymphocytes (%) (Auto) 24.9 % 02/27/17514 Monocytes (%) (Auto) 7.0 % 02/27/17514 Eosinophils (%) (Auto) 0 % 02/27/17514 Basophils (%) (Auto) 0.4 % 02/27/17514 Estimat Glomerular Filtration Rate 120 mL/min 02/27/17329 Calcium Level 8.9 mg/dL 02/27/17329 Magnesium Level 1.8 mg/dL 02/27/17329 Total Bilirubin 0.5 mg/dL 02/27/17329 Aspartate Amino Transf (AST/SGOT) 26 U/L 02/27/17 033 Alanine Aminotransferase (ALT/SGPT) 12 U/L 02/27/17329 Alkaline Phosphatase 63 U/L 02/27/17329 Total Protein 5.9 g/dL L 02/27/170 Albumin 3.1 g/dL L 02/27/17329 Thyroid Stimulating Hormone (TSH) 2.310 uIU/mL 02/27/17329 Result Diagram: 02/27/1751402/27/17329 X-Rays, CTs and MRIs X-RAY CHEST ONE VIEW, PORTABLE IMPRESSION: 1. No acute cardiopulmonary disease. Dictated by: Lopez Lepe M.D. on 02/26/2017 at 12:12 Approved by: Lopez Lepe M.D. on 02/26/2017 at 12:13 CT BRAIN WITHOUT CONTRAST IMPRESSION: 1. No acute intracranial abnormality. 2. Mild chronic white matter small vessel ischemic changes and cerebral volume loss. Dictated by: Lopez Lepe M.D. on 02/26/2017 at 8:16 Approved by: Lopez Lepe M.D. on 02/26/2017 at 8:18 CT ABDOMEN AND PELVIS WITHOUT CONTRAST IMPRESSION: 1. Redemonstration of diffuse osseous metastatic disease as before. 2.No evidence of internal hemorrhage. 3. Mild right lower lobe atelectasis Dictated by: Yann Rmairez M.D. on 02/27/2017 at 8:05 Approved by: Yann Ramirez M.D. on 02/27/2017 at 8:13 MRI BRAIN WITHOUT CONTRAST IMPRESSION: 1. No acute intracranial hemorrhage or ischemia. 2. Nonspecific white matter changes probably are be related to chronic small vessel ischemic changes. 3. No findings to suggest metastatic disease to the brain. Dictated by: Benjamin Mas M.D. on 02/27/2017 at 9:38 Approved by: Benjamin Mas M.D. on 02/27/2017 at 9:42 . Assessment & Plan 46-year-old female with past medical history of luminal like breast cancer with osseous metastasis presents with a complaint of altered mental status and confusion. Brain MRI and CT were negative beyond chronic white matter changes with no evidence metastasis to the brain. Thus this encephalopathic event was most likely due to medication misadventure, likely opiate induced, with concurrent early onset white matter ischemic changes most likely related to her underlying metastatic disease and resultant therapy. The patient remains somewhat tremulous and anxious with mental status below baseline per her report , "Until very recently I could kick anyone's ass at jeopardy". Will continue to observe the patient for a further 24 hours for potential decompensation and await oncologic consultation. Acute encephalopathy, POA. Active -MRI negative for metastasis, does demonstrate white matter loss due to likely small vessel ischemic changes -1mg IV Dilaudid to be given prior to MRI -UA negative -Blood cultures results pending Luminal like breast carcinoma with metastasis, POA. Active -Oncology consulted -Holding Capecitabine will allow oncology to dictate treatment -Continue pain management with fentanyl and oxycodone -May need palliative consult for pain management Pancytopenia secondary to recent chemo, POA, acute on chronic. Active -Hem/onc consulted -Will continue to monitor and treat as necessary Chronic anemia, POA. Active - Hemoglobin stable - Continue Iron sulfate 325 twice a day - Continue to monitor Anxiety/depression, POA, chronic. Active -Continue fluoxetine 40 mg daily - Will verify dose with pharmacy or sister there is question if the patient is still taking this medication Hypertension, POA, chronic. Active -Continue lisinopril 40 mg daily -Continue to monitor Code Status: Full code DVT prophylaxis: Lovenox and SCDs Diet: Regular Disposition: Likely DC home tomorrow with needs as yet to be determined pending oncology consult. Pain Evaluation: Adequate Pain Control VTE Prophylaxis: Sub-Q Enoxaparin Resuscitation Status: CPR: Attempt Resuscitation Attending Statement The patient was seen and examined together with Dr. Pete on 02/27/2017 and I agree with the history, exam and plan as outlined in the note above. . Shiva Pete DO Feb 27, 2017 15:56 Jj Hernandez MD Feb 28, 2017 07:25
--- NOTE | 2017-02-27 19:31 | NUR ---
Pain/Transfusion A/Ox2 exhibits moderate levels of confusion, easily reoriented. Pt. up to BR without assist and encouraged to use call light for help. Fluids infusing @ 10mL/hr. Went MRI for imaging this am, tolerated most of imaging time; however, experienced pain and anxiety and requested to d/c. notified. Medicated with Dilaudid and Ativan (x2) prior to procedure. Increase in pain after imaging, received 5mg Oxycodone with good resolve. Infusion of blood was held this am per MD request, reassessment made and infusion started after 1300. Patient received 1unit without difficulty. Unit #2 infusing at present. Patient developed increase in temperature, medicated with 650mg Tylenol. Reassessed after 30 min. and patient observed to be diaphoretic and hypotensive. notified and advised to continue transfusion with careful observation. Addendum: 02/27/17 at 1936 by SHELL KHAN RN Orthostatic Vitals to be completed after second unit infused, on coming RN advised.
--- NOTE | 2017-02-27 20:07 | NUR ---
End Transfusion Per report pt had fever/diaphoresis/hypotension w/ second transfusion and MD was notified. Post transfusion, vitals stable, no fever, BP WNL.
--- NOTE | 2017-02-27 21:26 | PROG NOTE ---
[address] [address] PROGRESS NOTE PATIENT: MERY YANES : 1970 MR#: [id number] ADMIT: 02/26/2017 JOB ID: [id number] DATE: 02/27/2017 SUBJECTIVE: The patient is being seen today per hospital rounds. She carries a diagnosis of metastatic breast cancer with osseous only involvement. Events over the past 24 hours are noted. The patient admitted to [facility] on February 27, 2017 after being seen in the emergency department with altered mental status. Admission imaging studies included an MRI of the brain on February 26, 2017 which reported no acute intracranial abnormality, mild chronic white matter small-vessel ischemic changes and cerebral volume loss. Followup MRI on February 27, 2017 without contrast showing no acute intracranial hemorrhage or ischemia, nonspecific white matter changes probable to be related to chronic small vessel ischemic changes, but no findings to suggest metastatic disease to the brain. In addition, the patient had a CT of the abdomen and pelvis without contrast which redemonstrated diffuse osseous metastatic disease but no internal hemorrhage. Mild right lower lobe atelectasis was noted. Admitting blood work on March 29, 2017 with a hemoglobin of 6.6, hematocrit 21.5, white blood cell count of 2.4 and a platelet count of 78. The patient has subsequently been transfused 2 units of packed red blood cells. Clinically, she is feeling better today, reporting less feelings of confusion. She continues to have the chronic lower back discomfort which is unchanged in character or location and reports her pain scale 7-8/10. She did not increase her fentanyl Duragesic patch and she has been on a 75 mcg plus a 12.5 mcg patch for at least three months now. The remainder of her review of systems is also significant for the absence of any fevers, chills or cough at home, although she does report a mild temperature while in the hospital of 37.6 at 05:30 this morning. No burning or frequency of urine or diarrhea. PAST MEDICAL HISTORY: Significant for: 1. Recurrent ER/MA positive metastatic breast cancer biopsy-proven from a posterior iliac crest lesion dated August 29, 2014. The patient's primary was ER/MA positive at 95% and 95% respectively, HER-2 is 2+ on IHC, but negative on FISH. She is refractory to front-line tamoxifen which she had no response to. She did have response to the combination of letrozole and Ibrance for approximately 22 months starting in October 2014, discontinued in June 2016. The patient subsequently started first-line chemotherapy with a regimen of capecitabine at 1500 mg p.o. daily x14 days of a 21 day cycle in July 2016. Dose has been modified to tolerability currently at 500 mg in the morning, 1000 mg in the evening for seven days on and seven days off. The patient has seen a stabilization of her tumor markers in the 800-900 range on this regimen. However, more cytopenias were noted. Of note, the rationale for trying capecitabine was due to significant side effects with her Ibrance and letrozole therapy. She remains a candidate for fulvestrant as a single agent versus fulvestrant plus Ibrance. She also remains a candidate for everolimus with exemestane. Her most recent imaging studies were a CT scan of the chest, abdomen and pelvis dated December 01, 2016 showing no change in bony mets, no evidence of soft tissue metastasis. The patient is symptomatic from her disease with lower back pain, currently on fentanyl 87.5 mcg dose with oxycodone 10 mg up to 3 pills per day. No recent dose changes. 2. Hypertension. PRESCRIPTION MEDICATIONS: At this time include: 1. Lisinopril 40 mg daily. 2. Fentanyl 12.5 mcg Duragesic patch. 3. Fentanyl 75 mcg Duragesic patch. PHYSICAL EXAMINATION: Vital signs today showing a weight of 77.2 kg, blood pressure was 105/63, temperature 37, pulse is 66, respiratory rate is 18. She is A and O x3. In good spirits overall though she looks a little tired. PERRLA. Anicteric. LABORATORY DATA: From February 27, 2017 showing a white cell count of 2.6, hemoglobin 7.2, platelet count of 84, neutrophil percentage of 66. Sodium 133, potassium 4.1, serum creatinine 0.74. AST 26, ALT 12, alk phos 63. TSH 2.3. ASSESSMENT AND PLAN: The patient is a very pleasant 46-year-old female with metastatic breast cancer osseous only involvement. The patient's acute episode of mental status change is likely a combination of her significant anemia and her fentanyl patch and oxycodone use. Recommendations at this time are to continue with her blood transfusion 2 units today. If no significant resolution is seen, then start decreasing her fentanyl patch down to 50 mcg q.72 h. Reassuringly, no signs of NEUROSURGICAL NURSE disease seen on CT of the head and MRI of the brain, as above. In regards to the patient's cytopenias, likely this is a sign of marrow progression. She has been scheduled for a bone marrow biopsy, and we will plan on switching her back over to antihormone therapy. She had no further questions.
[2017-02-28 03:16] VITALS: BP 123/81; PULSE 93; RESP 18; O2SAT 98
[2017-02-28 03:26] VITALS: BP 115/77
[2017-02-28 03:35] VITALS: BP 114/72
[2017-02-28] MEDS: Ondansetron 2 mg/mL 2 mL Inj IVPUSH PRN (03:37)
[2017-02-28] MEDS: 0.9% Sodium Chloride 250 ML IV SCH (03:52)
[2017-02-28 04:19] LABS: BASOPHILS % (AUTO) 0.4 % (0-3); EOSINOPHILS % (AUTO) 0.4 % (0-5); MONOCYTES % (AUTO) 7.7 % (4-12); Mean Corpuscular Hemoglobin 28.8 pg (27.0-35.0); Mean Corpuscular Volume 87.6 fL (81-100); NEUTROPHILS % (AUTO) 73.9 % (40-74); Platelet Count 93 bil/L (150-400)
[2017-02-28 04:39] LABS: Magnesium 2.3 mg/dL (1.6-2.6)
[2017-02-28 08:56] VITALS: BP 118/78; PULSE 92; RESP 16; O2SAT 90
[2017-02-28] MEDS: Lisinopril 40 Tablet PO SCH (09:20)
[2017-02-28] MEDS: Fluticasone 0.05% 15 Spray/2 Gm 16 Gm Nasal Spray NASAL SCH (09:21)
--- NOTE | 2017-02-28 09:24 | PCM.DIMED ---
Shiva Pete 02/28/17 0924: Discharge Instructions Date of Service Feb 28, 2017 Dates of Hospitalization Feb 26, 2017 at 09:34 Discharge Diagnosis Discharge Diagnosis Acute encephalopathy, POA. Active: Your confusion when you arrived was most likely due to a combination of your anemia and pain medication. I realize that you cannot reduce your pain medication. In the future be aware that if you get tired and confused it may be due to your anemia getting worse and you should go to the urgent care or the ER to get your blood tested. Per Dr. Smith you are scheduled to get a bone marrow biopsy to evaluate why your blood has been getting too thin. Luminal like breast carcinoma with metastasis, POA. Active: Please follow up with Dr. Smith for continued management of your breast cancer and metastasis. Pancytopenia secondary to recent chemo, POA, acute on chronic. Active: As above please follow up with Dr. Smith for your bone marrow biopsy Chronic anemia, POA. Active: As above follow up with Dr. Smith Anxiety/depression, POA, chronic. Active: Continue to take your psychiatric medication as directed. Hypertension, POA, chronic. Active: Continue to take your blood pressure medication as directed. Medication Instructions Additional med instructions I would try removing your additional 12.5 mcg Fentanyl patch to see how you tolerate that level of pain medication. The patch is a great way to deliver pain medication, but the issue involved is that it can take a while to build up in your system, which means that you may be feeling more pain and take your oral medication for breakthrough, however the patch can then kick in and the combination of the two can lead to confusion. I think the confusion you had coming in was a combination of this effect, and to a larger degree your anemia. If you have breakthrough pain with this dosing take an additional dose of your oral pain medication no more than every 4 hours. Test Results Test Results Your brain scans did not detect any sign of the cancer spreading to the brain. Diet Discharge Diet: No restrictions Activity Discharge Activity: Limited until seen by PCP (Balance rest and activity. Get as much exercise as your body and pain allows.) Call your provider Call your provider for: Fever or Chills, Shortness of breath, Bleeding, Chest pain, Vomitting, Excessive diarrhea, Weakness (unilateral) Patient Instructions Follow-up plan Follow up with Dr. Smith as directed by his office. Please follow up with Dr. Lyn within 2 weeks to discuss you pain medication and to follow up for this hospital stay. Follow-up Provider: Kev Lyn MD Follow-up with PCP in: 1 week Jj Hernandez MD 03/01/17 5009: Discharge Instructions Attending's Statement The patient was seen and examined together with Dr. Pete on 02/28/2017 and I agree with the history, exam and plan as outlined in the note above. . Shiva Pete DO Feb 28, 2017 09:24 Jj Hernandez MD Mar 01, 2017 16:49
--- NOTE | 2017-02-28 10:54 | PCM.DC.MED ---
Discharge Summary Date of Service Feb 28, 2017 Dates of Hospitalization Date of Hospital Admission Feb 26, 2017 at 09:34 Date of Discharge: Feb 28, 2017 Providers: Admitting Physician: Ashley Iqbal DO Primary Care Physician: Kev Hernandez MD Attending Physician: Ashley Iqbal DO Diagnosis at Time of Discharge Diagnosis at Time of Discharge Acute encephalopathy, POA. Active Luminal like breast carcinoma with metastasis, POA. Active Pancytopenia secondary to recent chemo, POA, acute on chronic. Active Acute on Chronic anemia, POA. Active Anxiety/depression, POA, chronic. Active Hypertension, POA, chronic. Active Consultations Palliative care with Dr. Joseph, oncology hematology with Dr. Sarah Loja XRay, CTs & MRIs X-RAY CHEST ONE VIEW, PORTABLE IMPRESSION: 1. No acute cardiopulmonary disease. Dictated by: Lopez Lepe M.D. on 02/26/2017 at 12:12 Approved by: Lopez Lepe M.D. on 02/26/2017 at 12:13 CT BRAIN WITHOUT CONTRAST IMPRESSION: 1. No acute intracranial abnormality. 2. Mild chronic white matter small vessel ischemic changes and cerebral volume loss. Dictated by: Lopez Lepe M.D. on 02/26/2017 at 8:16 Approved by: Lopez Lepe M.D. on 02/26/2017 at 8:18 CT ABDOMEN AND PELVIS WITHOUT CONTRAST IMPRESSION: 1. Redemonstration of diffuse osseous metastatic disease as before. 2.No evidence of internal hemorrhage. 3. Mild right lower lobe atelectasis Dictated by: Yann Ramirez M.D. on 02/27/2017 at 8:05 Approved by: Yann Ramirez M.D. on 02/27/2017 at 8:13 MRI BRAIN WITHOUT CONTRAST IMPRESSION: 1. No acute intracranial hemorrhage or ischemia. 2. Nonspecific white matter changes probably are be related to chronic small vessel ischemic changes. 3. No findings to suggest metastatic disease to the brain. Dictated by: Benjamin Mas M.D. on 02/27/2017 at 9:38 Approved by: Benjamin Mas M.D. on 02/27/2017 at 9:42 . Brief History Taken from History and Physical performed by Dr. 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 During the patient interview she was slow and lethargic to respond to questioning and even some of her responses were incorrect as confirmed by the sister. The patient states that this is been happening over the last 2 weeks however the sister thought she should bring her in today because over the last day or so she has been putting her clothes on backwards and not realizing this, trying to flush the TV remote in her cell phone down the toilet, the patient has also even been confused as to where she is or the location of the bathroom. The patient currently denies any chest pain, recent fevers, chills. Patient does report occasional nausea especially when taking pain medications, abdominal pain, fatigue and back pain. The patient was recently admitted on 02/18/2017 secondary to acute blood loss anemia with a hemoglobin of 5. Patient was transfused 2 units PRBCs and her hemoglobin increased back to 8.2. Patient's hemoglobin remained stable at 8.2 with a hematocrit of 25.9. The patient's history was difficult to obtain secondary to her current altered mental status. Much of the patient's history was obtained from the sister ( Maggie) who is also the patient's current decision maker as well as extensive chart review. Taken From Palliative care consultation composed by Dr. Joseph on 02/27/17 Palliative medicine consulted to assist with symptom management and in determination of goals of care Prior to visiting, I reviewed her extensive records in the EMR in detail, spoke with her bedside nurse, called and spoke by phone with her oncologist Dr. Smith. In reviewing his records, he noted that he adjusted dose of her fentanyl patch on 02/20 (he needed to reconfirm but thought that this was increased from 87 g ( 75+12 pateches) to 100 g size). He also indicated that her capecitabine has been discontinued as ineffective, and that they are awaiting insurance preauthorization before starting her on exemestane and everolimus. When I arrived, patient was just returning from the bathroom and getting back into bed. She was moving slowly and spoke slowly, but was fully oriented and quite appropriate. Said she continues to feel "blah" but that her pain is adequately controlled. She says she very much wants to go home as soon as possible. She was unable to remember her exact medication dosages- we checked and she is still wearing a fentanyl 75+ a fentanyl 12 patch on her left deltoid. No other patches in place and she has apparently not upgraded yet to the [address] Smith started on 02/20. She notes that she also uses her oxycodone at home, but no more than 10-15 mg twice a day, as well as her lorazepam infrequently. Other medications have been stable. Reviewed her study results with her and answered questions she had. She was pleased to hear that her brain CT and MRI both were negative for FOUNDRY METALLURGIST metastases. Her pancytopenia is being managed by her hospitalist team- she has received 2U PRBCs so far. She had no other particular questions about her status or care, but remains committed to continuing chemotherapy under Dr. Smith's direction. Hospital Course 46-year-old female with past medical history of luminal like breast cancer with osseous metastasis presents with a complaint of altered mental status and confusion. Brain MRI and CT were negative beyond chronic white matter changes with no evidence metastasis to the brain. Thus this encephalopathic event was most likely due to medication misadventure, likely opiate induced, with concurrent early onset white matter ischemic changes most likely related to her underlying metastatic disease and resultant therapy. Her confusion resolved over the course of her stay such that she returned to baseline prior to discharge. Pain medication management remains an issue for this unfortunate woman who clearly needs robust analgesia, but perhaps may benefit from alteration of her relative ratios of long acting versus short acting relief in order to moderate altered mental status. There is certainly a component of acute anemia contributing to this acute event, this was temporarily resolved with transfusion of 2U PRBC. Acute encephalopathy, POA. Active -MRI negative for metastasis, does demonstrate white matter loss due to likely small vessel ischemic changes -Most likely secondary to a combination of acute anemia and opiate analgesia -Patient adjusted to Fentanyl 75 mcg, with instruction to use short acting analgesia more frequently if necessary -Patient had been using PO analgesia sparingly, but cannot recall the events of the evening prior to admission or whether she ingested an additional dose -1mg IV Dilaudid to be given prior to MRI -UA negative -Blood cultures negative Luminal like breast carcinoma with metastasis, POA. Active -Oncology consulted -Holding Capecitabine will allow oncology to dictate treatment -Continue pain management with fentanyl and oxycodone -Palliative consult for pain management Pancytopenia secondary to recent chemo, POA, acute on chronic. Active -Hem/onc consulted -Continued to monitor and treat as necessary Chronic anemia, POA. Active - Hemoglobin stable - Continued Iron sulfate 325 twice a day - Continued to monitor Anxiety/depression, POA, chronic. Active -Continued fluoxetine 40 mg daily Hypertension, POA, chronic. Active -Continued lisinopril 40 mg daily -Continued to monitor Exam Vital Signs (Last) Date Time Temp Pulse Resp B/P Pulse Ox O2 Delivery O2 Flow Rate FiO2 02/28/17 08:56 37.8 92 16 118/78 90 Room Air 02/28/17 03:16 2.00 Exam Gen: A/O x3 anxious depressed woman in moderate acute distress secondary to pain Neck: Supple, non tender, no thyromegaly, no JVD HEENT: PERRL, EOMI, no scleral icterus, mild conjunctival pallor CV: RRR, no murmurs rubs or gallops Resp: Lungs CTA BL, no wheezing rales or rhonchi Abd: soft, diffusely tender to palpation, no rebound or guarding, BS + 4Q Extr: No clubbing cyanosis or edema Neuro: CN 2-12 grossly intact, no focal neurologic deficit Psych: Patient has difficulty with recent memory and word finding at times, expresses frustration with her own declining mental acuity Test 02/26/17 07:08 02/26/17 09:45 02/26/17 11:22 02/27/17 03:30 Prothrombin Time 11.4sec (8.1-12.5) Prothromb Time International Ratio 1.06ratio Activated Partial Thromboplast Time 33.0sec (22.8-33.0) Lactic Acid Level 1.8mmol/L (0.4-2.0) Troponin T 0.010ug/L (0.0-0.011) Urine Color Yellow (YELLOW) Urine Appearance Clear (CLEAR,HAZY) Urine pH 6.0 (5.0-8.0) Urine Specific [place] 1.020 (1.003-1.035) Urine Protein 100mg/dL (NEG,TRACE) Urine Glucose (UA) Negativemg/dL (NEGATIVE) Urine Ketones Negativemg/dL (NEGATIVE) Urine Occult Blood Moderate (NEGATIVE) Urine Nitrite Negative (NEGATIVE) Urine Bilirubin Negative (NEGATIVE) Urine Urobilinogen Normalmg/dL (NORMAL) Urine Leukocyte Esterase Negative (NEGATIVE) Urine RBC 0-2/hpf (0-2) Urine WBC 0-5/hpf (0-5) Urine Epithelial Cells Few/hpf (NONE-MOD) Urine Crystals None seen (NONE SEEN) Urine Bacteria Few/hpf (NONE-FEW) Urine Hyaline Casts Occasional/lpf (NONE) Urine Granular Casts Rare (NONE SEEN) Urine Waxy Casts None seen (NONE SEEN) Urine Red Blood Cell Casts None seen (NONE SEEN) Urine White Blood Cell Casts None seen (NONE SEEN) Urine Mucus None seen (None Seen) Urine Trichomonas None seen (NONE SEEN) Urine Yeast None (NONE SEEN) Urinalysis Comment None Urine Culture Reflexed Not indicated Hold Urine Received (Received) Total Bilirubin 0.5mg/dL (0.0-1.2) Aspartate Amino Transf (AST/SGOT) 26U/L (0-50) Alanine Aminotransferase (ALT/SGPT) 12U/L (0-32) Alkaline Phosphatase 63U/L (25-150) Total Protein 5.9g/dL (6.4-8.4) Albumin 3.1g/dL (3.4-5.0) Thyroid Stimulating Hormone (TSH) 2.310uIU/mL (0.450-4.500) Test 02/28/17 03:58 White Blood Count 2.3th/mm3 (3.8-10.1) Red Blood Count 3.23mil/mm3 (3.90-5.20) Hemoglobin 9.3g/dL (12.0-15.6) Hematocrit 28.3% (35.0-46.0) Mean Corpuscular Volume 87.6fL (81-100) Mean Corpuscular Hemoglobin 28.8pg (27.0-35.0) Mean Corpuscular Hemoglobin Concent 32.9% (32.0-37.0) Red Cell Distribution Width 16.4% (12.3-15.4) Platelet Count 93bil/L (150-400) Neutrophils (%) (Auto) 73.9% (40-74) Lymphocytes (%) (Auto) 16.7% (14-46) Monocytes (%) (Auto) 7.7% (4-12) Eosinophils (%) (Auto) 0.4% (0-5) Basophils (%) (Auto) 0.4% (0-3) Sodium Level 139mEq/L (134-144) Potassium Level 3.7mEq/L (3.5-5.2) Chloride Level 100mEq/L (97-108) Carbon Dioxide Level 26mmol/L (18-29) Blood Urea Nitrogen 14mg/dL (6-24) Creatinine 0.59mg/dL (0.57-1.00) Estimat Glomerular Filtration Rate 156mL/min (>59) Glucose Level 105mg/dL (60-99) Calcium Level 8.8mg/dL (8.5-10.1) Phosphorus Level 3.0mg/dL (2.5-4.9) Magnesium Level 2.3mg/dL (1.6-2.6) Microbiology Results Blood cultures with no growth at 48 hours Discharge Medications Discharge Medications Capecitabine (Capecitabine) 500 Mg Tablet 500 MG PO AM (Reported) 7 DAYS ON/7 DAYS OFF Capecitabine (Capecitabine) 500 Mg Tablet 1,000 MG PO HS (Reported) 7 DAYS ON/7 DAYS OFF Cetirizine HCl (Zyrtec) 10 Mg Capsule 10 MG PO HS (Reported) Fentanyl 75 mcg/hr Patch (Fentanyl 75 mcg/hr Patch) 1 Each Patch.td72 1 PATCH TRANSDERM Q3D (Reported) Fluticasone Propionate (Flonase Allergy Relief) 50 Mcg/Actuation [place].susp 9.9 ML NS DAILY (Reported) Lisinopril (Lisinopril) 40 Mg Tablet 40 MG PO DAILY (Reported) As needed Lorazepam (Ativan) 0.5 Mg Tablet 1-3 TABLET PO Q6HRS PRN PRN For Insomnia ( Reported) Ondansetron ODT (Zofran ODT) 4 Mg Tablet 4-8 MG PO Q4H PRN PRN For Nausea/ Vomiting Prescribed by: KEV HERNANDEZ MD Polyethylene Glycol 3350 (Miralax) 17 Gm Powd.pack 17 GM PO DAILY PRN PRN For Constipation Prescribed by: GWYN GREY DO Sennosides (Senna) 8.6 Mg Tablet 17.2 MG PO BID PRN PRN For Constipation Prescribed by: GWYN GREY DO oxyCODONE (oxyCODONE) 10 Mg Tablet 10 MG PO Q4H PRN PRN For Pain Prescribed by: GWYN GREY, DO Additional med instructions I would try removing your additional 12.5 mcg Fentanyl patch to see how you tolerate that level of pain medication. The patch is a great way to deliver pain medication, but the issue involved is that it can take a while to build up in your system, which means that you may be feeling more pain and take your oral medication for breakthrough, however the patch can then kick in and the combination of the two can lead to confusion. I think the confusion you had coming in was a combination of this effect, and to a larger degree your anemia. If you have breakthrough pain with this dosing take an additional dose of your oral pain medication no more than every 4 hours. Followup Plan Disposition: Home Follow-up plan Follow up with Dr. Smith as directed by his office. Please follow up with Dr. Hernandez within 2 weeks to discuss you pain medication and to follow up for this hospital stay. Discharge Diet: No restrictions Discharge Activity: Limited until seen by PCP (Balance rest and activity. Get as much exercise as your body and pain allows.) Follow-up Provider: Kev Hernandez MD Follow-up with PCP in: 1 week Time spent Greater than 30 minutes was spent in preparation of discharge with greater than 50% of that time dedicated to patient counseling and coordination of care. . Attending Statement The patient was seen and examined together with Dr. Pete on 02/28/2017 and I agree with the history, exam and plan as outlined in the note above. . copies to: Kev Hernandez MD, David E DO Feb 28, 2017 10:54 Jj Hernandez MD Mar 01, 2017 16:51
[2017-02-28 11:04] VITALS: PULSE 94
--- NOTE | 2017-02-28 12:13 | NUR ---
Social Work Note: Discharge Data& Assessment: EMR reviewed. Per pt is medically improved and ready for discharge. SW met with pt at bedside to confirm discharge plan and assess for any unmet needs. Jen Sam is a 46 year old female admitted on 02/26/2017 for altered LOC and breast cancer. Per pt is ready for discharge. Pt cleared pt to return home with a FWW. Pt confirmed she has a FWW at home and her sister will be transporting her home today. Pt denies any other needs. No other needs identified. Plan: Per pt is medically ready to discharge home via POV. t denies any other needs. No other needs identified. Latonia Lam MSW
--- NOTE | 2017-02-28 17:09 | NUR ---
Anxiety/Discharge a/ox3 more talkative, and indication offeeling anxious about wanting to d/c home today. Up with PT this morning for Eval, and recommended SB assist continue; instructed on use of cane once pt. does d/c home. MD wrote for d/c - d/c instructions and home medications reviewed. Pt. requested pain medications prior to going, 15mg Oxycodone given. IV therapy here to dc access to port. Pt. home with father and indicated will go to stay with sister. D/C via wheelchair with [employer]. Opportunity for questions was offered and patient indicated no further information was needed.
== END 2017-02-28 14:30 | disposition home or self-care (01) | DRG 70 ==
LOC: SED 06:44 → PCC 09:34
PROVIDERS: ADMIT Neuromusculoskeletal Medicine & OMM; ATTEND Neuromusculoskeletal Medicine & OMM
PROC: 30233N1 Transfusion of Nonautologous Red Blood Cells into Peripheral Vein, Percutaneous Approach (ICD-10-PCS; principal; 2017-02-27)
DX: G93.40 Encephalopathy, unspecified (principal); D61.810 Antineoplastic chemotherapy induced pancytopenia; C79.51 Secondary malignant neoplasm of bone; F41.8 Other specified anxiety disorders; I10 Essential (primary) hypertension; E78.5 Hyperlipidemia, unspecified; Z87.891 Personal history of nicotine dependence; Z51.5 Encounter for palliative care; C50.912 Malignant neoplasm of unspecified site of left female breast; Z17.0 Estrogen receptor positive status [ER+]; D64.9 Anemia, unspecified

== ENCOUNTER 2017-03-05 08:04 | Emergency (ER) | payer MEDICARE ==
[~2017-03-05] VITALS: Ht 170.2 cm; Wt 75.5 kg
[~2017-03-05 08:04] MED LIST changes: -FENT1PAT6 TRANSDERM; -FERR-83 PO; -FLUO20TA28 PO; +FLUT9.9S NS; -TRIA10.8 NS
[2017-03-05 08:10] VITALS: BP 127/94; PULSE 96; RESP 20; O2SAT 98
--- NOTE | 2017-03-05 08:24 | ED.REPORT ---
HPI-Neurologic Deficit Date of Service Mar 05, 2017 ED Provider: Vito Trejo DO The pt is a 46 y/o female w/ a hx of HTN, anxiety, hypothyroidism, depression, hyperlipidemia, and breast cancer presenting to the ED complaining of shaking. The pt describes feeling like she wants to "crawl out of her skin". She took Benadryl 50 mg and Ativan 2 mg at 0300 which did not help improve her symptoms. The pt is also feeling dizzy, nauseas, and slightly confused, which caused her to put her bra on backwards. She was able to walk into the ED today. Denies hematemesis, blood in stool, or vaginal bleeding. Her last round of chemotherapy was two months ago, she uses fentanyl patches, oxycodone and Ativan but does not feel like they are causing her dizziness. In the last 4 weeks she has had 4 pints of blood for her anemia. Nursing Notes Stated Complaint: CANCER PATIENT/DIZZY/CONFUSED Chief Complaint: General Complaint Nursing Notes Reviewed: Yes Allergies: Coded Allergies: Penicillins (Verified Allergy, Severe, RASH, 02/19/17) metoclopramide (Verified Allergy, Intermediate, tremors, 02/19/17) prochlorperazine (Verified Allergy, Unknown, 02/19/17) Sulfa (Sulfonamide Antibiotics) (Verified Adverse Reaction, Intermediate, N&V, 02/19/17) ciprofloxacin (Verified Adverse Reaction, Mild, MALAISE, 02/19/17) metoclopramide HCl (Verified Adverse Reaction, Mild, JITTERINESS, 02/19/17) Uncoded Allergies: APRICOTS (Allergy, Severe, UNKNOWN, 05/20/13) "My lips swell" CATS (Allergy, Unknown, UNKNOWN, 04/24/12) DUST MITES (Allergy, Unknown, UNKNOWN, 04/24/12) SULFITES (Allergy, Unknown, UNKNOWN, 04/24/12) TREE POLLEN (Allergy, Unknown, UNKNOWN, 04/24/12) Scheduled Capecitabine (Capecitabine) 500 Mg Tablet 500 MG PO AM 7 DAYS ON/7 DAYS OFF Capecitabine (Capecitabine) 500 Mg Tablet 1,000 MG PO HS 7 DAYS ON/7 DAYS OFF Cetirizine HCl (Zyrtec) 10 Mg Capsule 10 MG PO HS Fentanyl 75 mcg/hr Patch (Fentanyl 75 mcg/hr Patch) 1 Each Patch.td72 1 PATCH TRANSDERM Q3D Fluticasone Propionate (Flonase Allergy Relief) 50 Mcg/Actuation [place].susp 9.9 ML NS DAILY Lisinopril (Lisinopril) 40 Mg Tablet 40 MG PO DAILY Scheduled PRN Lorazepam (Ativan) 0.5 Mg Tablet 1-3 TABLET PO Q6HRS PRN PRN For Insomnia Ondansetron ODT (Zofran ODT) 4 Mg Tablet 4-8 MG PO Q4H PRN PRN For Nausea/ Vomiting Polyethylene Glycol 3350 (Miralax) 17 Gm Powd.pack 17 GM PO DAILY PRN PRN For Constipation Sennosides (Senna) 8.6 Mg Tablet 17.2 MG PO BID PRN PRN For Constipation oxyCODONE (oxyCODONE) 10 Mg Tablet 10 MG PO Q4H PRN PRN For Pain General Time Seen by Provider: 08:30 Chief Complaint Other (Shaking ) Hx Obtained From: Patient Arrived By: Walk-in Sudden in Onset?: Yes Immunizations: All up to date Recent Healthcare: Recent doctor visit, Recent hospitalization Similar Sx Previous: No Past Medical History Past Medical History Notes: Oncologist Gabo Smith ED visit February 18 with a hemoglobin of 5, requiring multiple unit transfusions Past Medical History 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 difficile colitis Chronic sinusitis Hypothyroidism Past Surgical History bone biopsy L3 pedicle and L3 vertebral body 10/01/14 - pathology postive for breast CA recurrence sinus polyp removal lumpectomy for CA, portacath placement hysterectomy tubal ligation uterine ablation Family History Father hypertension Smoking History Former Smoker Social History Alcohol Use: Denies alcohol use Drug Use: Denies drug use Other Social History: Good social support, Local resident Ambulatory Status Independent Review of Systems GI: Reports: Nausea, Denies: Bloody/tarry stool, Hematemesis Neurologic: Reports: Confusion, Dizziness, Shaking Complete sys rev & neg: except as marked. Female: Denies: Vaginal bleeding - abnl Physical Exam Initial Vital Signs Vital Signs (First) Date Time Temp Pulse Resp B/P Pulse Ox O2 Delivery O2 Flow Rate FiO2 03/05/17 08:10 36.5 96 20 127/94 98 Room Air Initial VS: Reviewed General/Constitutional: Awake, Alert Appearance / Presentation: Positive: Pale Head / Eyes: Normocephalic, No periorbital swelling, No photophobia Pupils 4 mm and reactive Respiratory / Chest: Atraumatic, Breath sounds NL, Breath sounds = bilat, No respiratory distress, No rales, No rhonchi, No wheezing Cardiovascular: Heart rate NL, Regular rhythm, Heart sounds NL Neurologic: Oriented X3, Speech NL, No motor deficits, No sensory deficits ENT: Atraumatic, Airway patent Neck: Atraumatic, Supple, Full range of motion Abdomen: Atraumatic, Soft, Non-tender Back: Atraumatic, Inspection NL, Full range of motion Skin: No rash, Warm, Dry Psychiatric: Not suicidal, Not homicidal Odd behavior Interpretation & Diagnostics Lab Results Interpretation Result Diagram: 03/05/17 0830 03/05/17 0830 Test 03/05/17 08:30 03/05/17 08:50 White Blood Count 1.4th/mm3 (3.8-10.1) Red Blood Count 3.48mil/mm3 (3.90-5.20) Hemoglobin 9.9g/dL (12.0-15.6) Hematocrit 30.6% (35.0-46.0) Mean Corpuscular Volume 87.9fL (81-100) Mean Corpuscular Hemoglobin 28.4pg (27.0-35.0) Mean Corpuscular Hemoglobin Concent 32.4% (32.0-37.0) Red Cell Distribution Width 15.6% (12.3-15.4) Platelet Count 93bil/L (150-400) Neutrophils (%) (Auto) 59.6% (40-74) Lymphocytes (%) (Auto) 28.4% (14-46) Monocytes (%) (Auto) 6.4% (4-12) Eosinophils (%) (Auto) 2.1% (0-5) Basophils (%) (Auto) 0.7% (0-3) Sodium Level 139mEq/L (134-144) Potassium Level 3.6mEq/L (3.5-5.2) Chloride Level 98mEq/L (97-108) Carbon Dioxide Level 24mmol/L (18-29) Blood Urea Nitrogen 12mg/dL (6-24) Creatinine 0.63mg/dL (0.57-1.00) Estimat Glomerular Filtration Rate 145mL/min (>59) Glucose Level 121mg/dL (60-99) Calcium Level 10.0mg/dL (8.5-10.1) Magnesium Level 2.0mg/dL (1.6-2.6) Total Bilirubin 0.3mg/dL (0.0-1.2) Aspartate Amino Transf (AST/SGOT) 24U/L (0-50) Alanine Aminotransferase (ALT/SGPT) 18U/L (0-32) Alkaline Phosphatase 79U/L (25-150) Total Protein 7.1g/dL (6.4-8.4) Albumin 3.0g/dL (3.4-5.0) Urine Color Yellow (YELLOW) Urine Appearance Clear (CLEAR,HAZY) Urine pH 6.0 (5.0-8.0) Urine Specific [place] 1.022 (1.003-1.035) Urine Protein Negativemg/dL (NEG,TRACE) Urine Glucose (UA) Negativemg/dL (NEGATIVE) Urine Ketones Negativemg/dL (NEGATIVE) Urine Occult Blood Trace (NEGATIVE) Urine Nitrite Negative (NEGATIVE) Urine Bilirubin Negative (NEGATIVE) Urine Urobilinogen Normalmg/dL (NORMAL) Urine Leukocyte Esterase Negative (NEGATIVE) Urine RBC 0-2/hpf (0-2) Urine WBC 0-5/hpf (0-5) Urine Epithelial Cells Few/hpf (NONE-MOD) Urine Crystals None seen (NONE SEEN) Urine Bacteria None/hpf (NONE-FEW) Urine Hyaline Casts None/lpf (NONE) Urine Granular Casts None seen (NONE SEEN) Urine Waxy Casts None seen (NONE SEEN) Urine Red Blood Cell Casts None seen (NONE SEEN) Urine White Blood Cell Casts None seen (NONE SEEN) Urine Mucus None seen (None Seen) Urine Trichomonas None seen (NONE SEEN) Urine Yeast None (NONE SEEN) Urinalysis Comment None Urine Culture Reflexed Not indicated Re-Eval/Medical Decision Med Decision/Clinical Course No obvious life-threatening cause for the patient's symptoms can be identified, she is clinically stable, able to ambulate independently, awake alert and oriented. She does seem to have some level of restlessness and anxiety. She is not tremulous at rest or with ambulation or activity. She does start voluntarily shaking when she describes her anxious feeling. Her records were reviewed. This may be polypharmacy superimposed upon underlying anxiety and depression. He marked was consulted and recommends outpatient follow-up and beginning olanzapine. In reviewing her prior charting it seems that lorazepam may be contributory to the restlessness, I did recommend that she decrease her dose and eventually taper off. Also discussed seeking outpatient mental health resources. This is not consistent with serotonin syndrome, dystonic reaction, stroke, sepsis, or any other known life-threatening pathology. Patient will be discharged on 5 mg olanzapine daily. Return in follow-up precautions given. Source of Hx: Old records Re-Evaluation/Progress #1: Time of Eval: 09:17 Re-Evaluation/Progress Note: Pt rechecked. Called by nurse for slurred speech 6 minutes after giving IV 1 mg Lorazepam. Cranial nerves are intact, motor and sensory are normal. Slow speech and slow to respond due to the Lorazepam and not an acute stroke. Re-Evaluation/Progress #2: Time of Eval: 10:01 Re-Evaluation/Progress Note: Pt rechecked. Pt continues to feel restless and agitated. Slurred speech has improved. She now reports taking her Fluoxetine "sometimes" after the hospital previously told her to stop usage. Re-Evaluation/Progress #3: Time of Eval: 10:16 Re-Evaluation/Progress Note: Discussed plan for olanzapine dosage. Re-Evaluation/Progress #4: Time of Eval: 10:51 Re-Evaluation/Progress Note: Pt rechecked. Informed pt of plan for treatment. Pt understands and agrees with plan for treatment. F/U instructions and RTER warnings given. All questions addressed. Consultation : Referral / Consult Name: Barrie Smith Dandy HONG Consulted With: Marketing Communication Manager Call Returned at: 10:06 Note: Discussed pt plan. Recommends outpatient psychiatric consult and Olanzapine 5 mg. Counseled Regarding: Diagnosis, Lab results, Need for follow-up, When/why to return to ED Discharge & Departure Impression: Primary Impression: Restlessness and agitation Disposition: Home Discharge Condition All VS Reviewed: Yes Condition: Stable Additional Instructions: Your labs are reassuring. Your exam today is not consistent with a stroke or other life-threatening pathology. You may be experiencing the symptoms due to overmedication. After discussion with your oncologist we will start you on olanzapine. Stopped taking fluoxetine. Decrease your lorazepam to 0.5 mg 3 times a day and ultimately you should eventually taper off of this medicine. Discussed this with your primary care and oncologist before completely discontinuing lorazepam. Call your oncologist and primary care doctor in the morning for close follow-up and evaluation. Return to the ER as needed for other concerning signs or symptoms. Referrals: Kev Lyn MD (PCP) Scribe Attestation Portions of this note were transcribed by Jerman Frey. I, Dr. Trejo personally performed the history, physical exam and medical decision-making; I reviewed and confirmed the accuracy of the information in the transcribed note. Signed by : Milagros Lawrence, 03/05/17 and [id number]. copies to: Kev Lyn MD, Timothy S DO Mar 05, 2017 08:23 Jerman Frey Mar 05, 2017 08:46
[2017-03-05] MEDS ORDERED: 0.9% Sodium Chloride 1,000 ML IV ONE (08:28)
[2017-03-05] MEDS ORDERED: Ondansetron 2 mg/mL 2 mL Inj IVPUSH PRN (08:35)
[2017-03-05 08:50] LABS: BASOPHILS % (AUTO) 0.7 % (0-3); EOSINOPHILS % (AUTO) 2.1 % (0-5); MONOCYTES % (AUTO) 6.4 % (4-12); Mean Corpuscular Hemoglobin 28.4 pg (27.0-35.0); Mean Corpuscular Volume 87.9 fL (81-100); NEUTROPHILS % (AUTO) 59.6 % (40-74); Platelet Count 93 bil/L (150-400)
[2017-03-05 09:20] VITALS: PULSE 78; RESP 12; O2SAT 98
[2017-03-05 09:24] LABS: APPEARANCE,URINE CLEAR (CLEAR,HAZY); COLOR,URINE YELLOW (YELLOW); OCCULT BLOOD,URINE TRACE (NEGATIVE); UROBILINOGEN,URINE NORMAL (NORMAL)
[2017-03-05] MEDS ORDERED: OLANZapine Zydis ODT 5 mg Tablet PO ONE (10:15)
[2017-03-05 11:05] VITALS: BP 101/54; PULSE 87; RESP 15; O2SAT 98
[2017-03-05] MEDS ORDERED: HepLOK Flush 100 unit/mL 5 mL Inj ONE (11:11)
== END 2017-03-05 11:55 | disposition home or self-care (01) ==
LOC: SED 08:04
DX: R45.1 Restlessness and agitation (principal); R42 Dizziness and giddiness; R11.0 Nausea; R41.0 Disorientation, unspecified; C79.89 Secondary malignant neoplasm of other specified sites; C79.51 Secondary malignant neoplasm of bone; C50.912 Malignant neoplasm of unspecified site of left female breast; I10 Essential (primary) hypertension; F41.8 Other specified anxiety disorders; E78.5 Hyperlipidemia, unspecified; E03.9 Hypothyroidism, unspecified; Z87.891 Personal history of nicotine dependence; Z88.0 Allergy status to penicillin; Z88.1 Allergy status to other antibiotic agents; Z88.2 Allergy status to sulfonamides; Z88.8 Allergy status to other drugs, medicaments and biological substances
CPT/HCPCS: 36415; 80053; 81000; 83735; 85025; 86850; 96361; 96374; 96375; 99285; J2060; J2405; J7030

== ENCOUNTER 2017-03-30 00:42 | Inpatient (IN) | payer MEDICARE ==
[~2017-03-30] VITALS: Ht 170.2 cm; Wt 78.0 kg
[2017-03-30] VITALS (15 sets, daily range): BP systolic 115–147; BP diastolic 73–87; PULSE 84–95; RESP 16–20; O2SAT 95–100
--- NOTE | 2017-03-30 00:56 | ED.REPORT ---
HPI-Chest Pain 40 and Over Date of Service Mar 30, 2017 ED Provider: Gerardo Carter Pt is a 46 year old female with a history of HTN, metastatic breast cancer, and hyperlipidemia who presents to the ED complaining of worsening chest pain onset 24 hours ago. She c/o associated SOB and dyspnea. Pain is worse with change in posture. She denies cough, nausea, vomiting, diaphoresis, and any other symptoms. The pt reports that she took 20 mg of Oxycodone without relief at 00: 00 today. Nursing Notes Stated Complaint: CHEST PAIN Chief Complaint: Chest Pain Nursing Notes Reviewed: Yes Allergies: Coded Allergies: Penicillins (Verified Allergy, Severe, RASH, 03/30/17) metoclopramide (Verified Allergy, Intermediate, tremors, 03/30/17) prochlorperazine (Verified Allergy, Unknown, 03/30/17) Sulfa (Sulfonamide Antibiotics) (Verified Adverse Reaction, Intermediate, N&V, 03/30/17) ciprofloxacin (Verified Adverse Reaction, Mild, MALAISE, 03/30/17) metoclopramide HCl (Verified Adverse Reaction, Mild, JITTERINESS, 03/30/17) Uncoded Allergies: APRICOTS (Allergy, Severe, UNKNOWN, 05/20/13) "My lips swell" CATS (Allergy, Unknown, UNKNOWN, 04/24/12) DUST MITES (Allergy, Unknown, UNKNOWN, 04/24/12) SULFITES (Allergy, Unknown, UNKNOWN, 04/24/12) TREE POLLEN (Allergy, Unknown, UNKNOWN, 04/24/12) Scheduled Capecitabine (Capecitabine) 500 Mg Tablet 500 MG PO AM 7 DAYS ON/7 DAYS OFF Capecitabine (Capecitabine) 500 Mg Tablet 1,000 MG PO HS 7 DAYS ON/7 DAYS OFF Cetirizine HCl (Zyrtec) 10 Mg Capsule 10 MG PO HS Fentanyl 75 mcg/hr Patch (Fentanyl 75 mcg/hr Patch) 1 Each Patch.td72 1 PATCH TRANSDERM Q3D Fluticasone Propionate (Flonase Allergy Relief) 50 Mcg/Actuation [place].susp 9.9 ML NS DAILY Lisinopril (Lisinopril) 40 Mg Tablet 40 MG PO DAILY Scheduled PRN Lorazepam (Ativan) 0.5 Mg Tablet 1-3 TABLET PO Q6HRS PRN PRN For Insomnia Ondansetron ODT (Zofran ODT) 4 Mg Tablet 4-8 MG PO Q4H PRN PRN For Nausea/ Vomiting Polyethylene Glycol 3350 (Miralax) 17 Gm Powd.pack 17 GM PO DAILY PRN PRN For Constipation Sennosides (Senna) 8.6 Mg Tablet 17.2 MG PO BID PRN PRN For Constipation oxyCODONE (oxyCODONE) 10 Mg Tablet 10 MG PO Q4H PRN PRN For Pain General Time Seen by MD: 00:56 Chief Complaint Chest pain Hx Obtained From: Patient Arrived By: Walk-in Sudden in Onset?: No Onset Occurred: 21 - 23 hours ago Symptom Duration: Since onset Location: : Substernal Quality: Painful Severity: Current: Moderate Severity: Maximum: Moderate Recent Healthcare: Recent doctor visit Similar Sx Previous: No Past Medical History Past Medical History Notes: Oncologist Gabo Smith ED visit February 18 with a hemoglobin of 5, requiring multiple unit transfusions Past Medical History 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 difficile colitis Chronic sinusitis Hypothyroidism Reports: Hyperlipidemia, Hypertension Past Surgical History bone biopsy L3 pedicle and L3 vertebral body 10/01/14 - pathology postive for breast CA recurrence sinus polyp removal lumpectomy for CA, portacath placement hysterectomy tubal ligation uterine ablation Family History Father hypertension Smoking History Former Smoker Social History Alcohol Use: Denies alcohol use Drug Use: Denies drug use Other Social History: Good social support, Local resident Ambulatory Status Independent Review of Systems Respiratory: Reports: Dyspnea on exertion, Shortness of breath, Denies: Non-productive cough Cardiovascular: Reports: Chest pain GI: Denies: Nausea, Vomiting Skin: Denies Diaphoresis Complete sys rev & neg: except as marked. Physical Exam Initial Vital Signs Vital Signs (First) Date Time Temp Pulse Resp B/P Pulse Ox O2 Delivery O2 Flow Rate FiO2 03/30/17 00:45 36.0 95 18 134/86 100 Room Air Initial VS: Reviewed Head / Eyes: Atraumatic, Normocephalic Neck: Supple, Full range of motion Extremities: Vascular intact, Neuro intact Skin: Warm, Dry, No cyanosis Neurologic: Alert, Oriented, Nonfocal Psychiatric: Mood/affect normal, Behavior normal General/Constitutional: Awake, Alert, Cooperative Appearance / Presentation: Positive: Pale Chronically ill appearing. Respiratory / Chest: Atraumatic, Breath sounds NL, Breath sounds = bilat Cardiovascular: Regular rhythm, Heart sounds NL Heart Rate / Rhythm: Positive: Tachycardia Abdomen: Atraumatic, Soft, Non-tender Interpretation & Diagnostics CT PULMONARY ANGIOGRAM: CONCLUSION: NO dissection or pulmonary embolism. Mild scattered atelectasis or infiltrate, cannot rule out pneumonia, particularly in the lung bases. Suspect diffuse bony metastatic disease. Transmitted to the ED at 03:04 by Paloma Lara M.D. Lab Results Interpretation Result Diagram: 03/30/17 0110 03/30/17 0110 Test 03/30/17 01:10 White Blood Count 2.4th/mm3 (3.8-10.1) Red Blood Count 2.27mil/mm3 (3.90-5.20) Hemoglobin 6.3g/dL (12.0-15.6) Hematocrit 20.0% (35.0-46.0) Mean Corpuscular Volume 88.1fL (81-100) Mean Corpuscular Hemoglobin 27.8pg (27.0-35.0) Mean Corpuscular Hemoglobin Concent 31.5% (32.0-37.0) Red Cell Distribution Width 15.9% (12.3-15.4) Platelet Count 81bil/L (150-400) Neutrophils (%) (Auto) 65.0% (40-74) Lymphocytes (%) (Auto) 25.3% (14-46) Monocytes (%) (Auto) 6.8% (4-12) Eosinophils (%) (Auto) 0.8% (0-5) Basophils (%) (Auto) 0.8% (0-3) Band Neutrophils % 1% (1-5) Sodium Level 140mEq/L (134-144) Potassium Level 3.6mEq/L (3.5-5.2) Chloride Level 96mEq/L (97-108) Carbon Dioxide Level 27mmol/L (18-29) Blood Urea Nitrogen 16mg/dL (6-24) Creatinine 0.81mg/dL (0.57-1.00) Estimat Glomerular Filtration Rate 109mL/min (>59) Glucose Level 103mg/dL (60-99) Calcium Level 9.4mg/dL (8.5-10.1) Magnesium Level 1.8mg/dL (1.6-2.6) Total Bilirubin 0.2mg/dL (0.0-1.2) Aspartate Amino Transf (AST/SGOT) 19U/L (0-50) Alanine Aminotransferase (ALT/SGPT) 13U/L (0-32) Alkaline Phosphatase 80U/L (25-150) Troponin T 0.010ug/L (0.0-0.011) Total Protein 6.9g/dL (6.4-8.4) Albumin 3.5g/dL (3.4-5.0) Hold Russell Top Tube Received (Received) ECG Interpretation Time: 00:57 Interpreted by: ED physician Normal ECG Interpretation: Normal sinus rhythm (with a rate of 97) X-Ray Chest Interpretation Chest Xray Interpretation: Negative. View: Portable, 1 view Interpretation / Wet Read by: Wet read ED physician Re-Eval/Medical Decision Med Decision/Clinical Course 46-year-old patient with metastatic breast cancer high risk for pulmonary embolus, but negative by CAT scan. Multiple metastases are again noted. No lung findings to explain her pain. Atelectatic streaks bilaterally unlikely pneumonia, without fever or cough. She is admitted now for transfusion, as her hemoglobin is dropped to six again. Continue pain control with Dilaudid. She is pacing end-stage at this point, with an experimental chemotherapy planned after failure of first and second line therapy. Remains full code at this point. Source of Hx: Old records Time of Eval: 03:14 Re-Evaluation/Progress Note: Pt rechecked. Discussed pt's results. Informed pt of plan for admission. Pt understnads and agrees with plan for admission. All questions addressed. Consultation : Referral / Consult Name: Flaca Gould MD Consulted With: Hospitalist Call Returned at: 03:17 Field Clinical Engineer: Will see patient, Agrees with eval, Agrees with plan, Accepts admit Counseled Regarding: Diagnosis, Lab results, Need for admission Discharge & Departure Primary Impression: Non-cardiac chest pain Additional Impressions: Metastatic breast cancer Malignant bone pain Anemia Disposition: ADMITTED TO HOSPITAL Discharge Condition All VS Reviewed: Yes Condition: Stable Referrals: Kev Lyn MD (PCP) Scribe Attestation Portions of this note were transcribed by Bailey Bah. IDr. Carter personally performed the history, physical exam and medical decision-making; I reviewed and confirmed the accuracy of the information in the transcribed note. Signed by: Milagros Lara, 03/30/17 and 14:50. copies to: Kev Lyn MD, Christopher W MD Mar 30, 2017 00:56 Bailey Fernandez Mar 30, 2017 01:09
[2017-03-30] MEDS ORDERED: Ketorolac 15 mg/mL Inj IVPUSH ONE (01:05)
[2017-03-30] MEDS ORDERED: HYDROmorphone Inj 2 MG in 0.9% Sodium Chloride 100 ML IV ONE (01:05)
[2017-03-30] MEDS ORDERED: Ondansetron 2 mg/mL 2 mL Inj IVPUSH ONE (01:05)
[2017-03-30] MEDS ORDERED: HYDROmorphone 1 mg/mL Inj IVPUSH PRN ×2 (01:15→05:50)
[2017-03-30 01:40] LABS: Mean Corpuscular Hemoglobin 27.8 pg (27.0-35.0); Mean Corpuscular Volume 88.1 fL (81-100)
[2017-03-30 01:41] LABS: BASOPHILS % (AUTO) 0.8 % (0-3); EOSINOPHILS % (AUTO) 0.8 % (0-5); MONOCYTES % (AUTO) 6.8 % (4-12); Platelet Count 81 bil/L (150-400)
[2017-03-30] MEDS: HYDROmorphone 1 mg/mL Inj IVPUSH PRN ×8 (01:42→23:07)
[2017-03-30 01:56] LABS: TROPONIN T 0.01 ug/L (0.0-0.011)
[2017-03-30 02:19] LABS: Magnesium 1.8 mg/dL (1.6-2.6)
[2017-03-30] MEDS ORDERED: Alum-Mag Hydrox-Simeth 30 mL Suspension PO PRN (03:45)
[2017-03-30] MEDS ORDERED: Polyethylene Glycol (PEG) 17 Gm Powder PO PRN ×2 (03:45)
--- NOTE | 2017-03-30 04:00 | PCM.HPMED ---
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 Worse with movement and some tenderness to palpation. Worse when she takes a deep breath. Per evaluation in the emergency room includes a troponin of 0.010. CTA of chest PE protocol revealed no dissection or pulmonary emboli. Mild scattered atelectasis or infiltrate cannot be ruled out. Suspect diffuse bony metastatic disease. She was also found to be anemic with a hemoglobin 6.3 hematocrit 20.0. White count 2.4 and platelets 81,000. She was recently hospitalized here 02/28/2017. That admission was for acute encephalopathy. It was thought to be secondary to acute anemia and opiate analgesia. She was also seen by oncology Dr. Smith at that time. She currently is undergoing a chemotherapy regimen of fulvestrant. Patient is placed in observation status for PRBC 3 unit transfusion. Review of Systems: Patient denies any fevers or chills. Denies any nausea or vomiting. All other review systems are reviewed and are negative except for as in history of present illness. Allergies Coded Allergies: Penicillins (Verified Allergy, Severe, RASH, 03/30/17) metoclopramide (Verified Allergy, Intermediate, tremors, 03/30/17) prochlorperazine (Verified Allergy, Unknown, 03/30/17) Sulfa (Sulfonamide Antibiotics) (Verified Adverse Reaction, Intermediate, N&V, 03/30/17) ciprofloxacin (Verified Adverse Reaction, Mild, MALAISE, 03/30/17) metoclopramide HCl (Verified Adverse Reaction, Mild, JITTERINESS, 03/30/17) Uncoded Allergies: APRICOTS (Allergy, Severe, UNKNOWN, 05/20/13) "My lips swell" CATS (Allergy, Unknown, UNKNOWN, 04/24/12) DUST MITES (Allergy, Unknown, UNKNOWN, 04/24/12) SULFITES (Allergy, Unknown, UNKNOWN, 04/24/12) TREE POLLEN (Allergy, Unknown, UNKNOWN, 04/24/12) Home Medications Cetirizine HCl (Zyrtec) 10 Mg Capsule 10 MG PO HS Fentanyl 75 mcg/hr Patch (Fentanyl 75 mcg/hr Patch) 1 Each Patch.td72 1 PATCH TRANSDERM Q3D Fluticasone Propionate (Flonase Allergy Relief) 50 Mcg/Actuation [place].susp 9.9 ML NS DAILY Lisinopril (Lisinopril) 40 Mg Tablet 40 MG PO DAILY Scheduled PRN Lorazepam (Ativan) 0.5 Mg Tablet 1-3 TABLET PO Q6HRS PRN PRN For Insomnia Ondansetron ODT (Zofran ODT) 4 Mg Tablet 4-8 MG PO Q4H PRN PRN For Nausea/ Vomiting Polyethylene Glycol 3350 (Miralax) 17 Gm Powd.pack 17 GM PO DAILY PRN PRN For Constipation Sennosides (Senna) 8.6 Mg Tablet 17.2 MG PO BID PRN PRN For Constipation oxyCODONE (oxyCODONE) 10 Mg Tablet 10 MG PO Q4H PRN PRN For Pain PMH Past Medical History Past Medical History Notes: Oncologist Gabo Smith ED visit February 18 with a hemoglobin of 5, requiring multiple unit transfusions Past Medical History 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 difficile colitis Chronic sinusitis Hypothyroidism Reports: Hyperlipidemia, Hypertension Past Surgical History bone biopsy L3 pedicle and L3 vertebral body 10/01/14 - pathology postive for breast CA recurrence sinus polyp removal lumpectomy for CA, portacath placement hysterectomy tubal ligation uterine ablation Family History Father with a history of hypertension Social History Hx Alcohol Use: Yes (13 years ago) Hx Substance Use: No Hx Tobacco Use: Yes Smoking Status: Former Smoker Living Arrangement: with Family Exam Vital Signs Vital Sign - Last Date Time Temp Pulse Resp B/P Pulse Ox O2 Delivery O2 Flow Rate FiO2 03/30/17 02:12 93 16 123/78 96 Room Air 03/30/17 00:45 36.0 Exam Constitutional: Middle-aged female in mild pain distress Head: Normocephalic/atraumatic Neck: No adenopathy Chest: Clear to auscultation Cor: Regular rate and rhythm Abdomen: Soft mild diffuse tenderness no rebound no guarding bowel sounds present Extremities: No pedal edema Skin: No rashes Psych: Mood and affect are appropriate Neuro: Alert and oriented 3, motor strength is intact bilaterally Lab and Diagnostics Labs Laboratory Tests 72 Hours Test 03/30/17 01:10 White Blood Count 2.4th/mm3 (3.8-10.1) Red Blood Count 2.27mil/mm3 (3.90-5.20) Hemoglobin 6.3g/dL (12.0-15.6) Hematocrit 20.0% (35.0-46.0) Mean Corpuscular Volume 88.1fL (81-100) Mean Corpuscular Hemoglobin 27.8pg (27.0-35.0) Mean Corpuscular Hemoglobin Concent 31.5% (32.0-37.0) Red Cell Distribution Width 15.9% (12.3-15.4) Platelet Count 81bil/L (150-400) Neutrophils (%) (Auto) 65.0% (40-74) Lymphocytes (%) (Auto) 25.3% (14-46) Monocytes (%) (Auto) 6.8% (4-12) Eosinophils (%) (Auto) 0.8% (0-5) Basophils (%) (Auto) 0.8% (0-3) Band Neutrophils % 1% (1-5) Sodium Level 140mEq/L (134-144) Potassium Level 3.6mEq/L (3.5-5.2) Chloride Level 96mEq/L (97-108) Carbon Dioxide Level 27mmol/L (18-29) Blood Urea Nitrogen 16mg/dL (6-24) Creatinine 0.81mg/dL (0.57-1.00) Estimat Glomerular Filtration Rate 109mL/min (>59) Glucose Level 103mg/dL (60-99) Calcium Level 9.4mg/dL (8.5-10.1) Magnesium Level 1.8mg/dL (1.6-2.6) Total Bilirubin 0.2mg/dL (0.0-1.2) Aspartate Amino Transf (AST/SGOT) 19U/L (0-50) Alanine Aminotransferase (ALT/SGPT) 13U/L (0-32) Alkaline Phosphatase 80U/L (25-150) Troponin T 0.010ug/L (0.0-0.011) Total Protein 6.9g/dL (6.4-8.4) Albumin 3.5g/dL (3.4-5.0) Hold Russell Top Tube Received (Received) Result Diagram: 03/30/1710903/30/17109 12-lead ECG Normal Sinus at a rate of 97 Assessment & Plan # Acute anemia, present on admission I think that be secondary to bone marrow infiltration and chemotherapy Transfuse 3 units of PRBCs and check CBC after transfusion #Chest pain, acute, present on admission CT of chest is negative for PE disc dissection does have multiple areas of bony metastases which is most likely source of pain Troponin is negative #History of breast carcinoma metastatic to bone, present on admission Followed by Dr. Smith oncology #DVT prophylaxis We will use SCDs and on subcutaneous anticoagulation #CODE STATUS Patient is full code as previously discussed with palliative care at her February admission. Pain Evaluation: Adequate Pain Control VTE Prophylaxis: SCDs Resuscitation Status: CPR: Attempt Resuscitation Time spent 60 minutes Flaca Gould MD Mar 30, 2017 04:00
[2017-03-30] MEDS ORDERED: Furosemide 10 mg/mL 4 mL Inj IVPUSH ONE (04:10)
[2017-03-30] MEDS ORDERED: 0.9% Sodium Chloride 250 ML ONE ×3 (05:08→12:38)
[2017-03-30] MEDS: Fluticasone 0.05% 15 Spray/2 Gm 16 Gm Nasal Spray NASAL SCH (08:11)
[2017-03-30] MEDS: Lisinopril 40 Tablet PO SCH (08:12)
[2017-03-30] MEDS: Ondansetron 2 mg/mL 2 mL Inj IVPUSH PRN ×4 (08:15→21:12)
--- NOTE | 2017-03-30 08:20 | NUR ---
Admission Pt admitted to [facility] rm 1020 at 0400 from the ED. Pt went to ED with c/o CP. Cardiac ruled out, per Pt she believes she has GERD as her pain started after adding back in spicy and acidic foods to her diet. Pt with dx of metastatic cancer from breast to bone. Anemic. IV fluids infusing TKO through central port. PRBC ordered and started. Pt states she has pain 8-10/10 and rec'd PRN dilaudid in the ED with +effects. Johnny ABBASI and rec'd orders for PRN dilaudid to be used this stay. Pt A/O x4, oriented to room, call light and bed controls. Pt familiar as she has been a Pt here. Pt is general diet and CPR. SBA for safety, +KASSY, BRIDGE RIGGER on. Care continues
--- NOTE | 2017-03-30 08:41 | DRSVH ---
PROCEDURE: X-RAY CHEST ONE VIEW, PORTABLE ([id number]) INDICATIONS: CHEST PAIN FOR 24 HOURS TECHNIQUE: One view of the chest was acquired. COMPARISON: [facility], CR, XR CHEST 1VW (PORTABLE), 02/26/2017, 7:27. FINDINGS: Surgical changes and devices: Left-sided portacatheter tip in SVC. Right breast postsurgical changes. Lungs and pleura: No pleural effusions or pneumothorax. Lungs are clear. Mediastinum: Mediastinal contours appear normal. Heart size is normal. Bones and chest wall: No suspicious bony lesions. Overlying soft tissues appear unremarkable. IMPRESSION: 1. No radiographic evidence of acute cardiopulmonary pathology. 2. Left-sided portacatheter. Dictated by: Trent Brown M.D. on 03/30/2017 at 8:38 Approved by: Trent Brown M.D. on 03/30/2017 at 8:39
[2017-03-30] MEDS: LORazepam 0.5 mg Tablet PO PRN ×2 (09:29→18:34)
--- NOTE | 2017-03-30 09:34 | DRSVH ---
PROCEDURE: CT ANGIO CHEST PULMONARY EMBOLISM ([id number]) INDICATIONS: cp breast ca TECHNIQUE: After the administration of intravenous contrast, 2 mm thick sections acquired from the pulmonary api winnie to the posterior costophrenic angles. 3-dimensional maximum intensity projection (MIP) coronal a nd sagittal reformats were then acquired through the thorax. For radiation dose reduction, the follo wing was used: automated exposure control, adjustment of mA and/or kV according to patient size. COMPARISON: [facility], CT, CT ABD PELVIS WO CON, 02/27/2017, 5:38. FINDINGS: Image quality: Excellent. Pulmonary arteries: Pulmonary arteries are normal in size, and demonstrate no intraluminal filling d efects to suggest central pulmonary embolism. Lungs and pleura: Lungs are clear. No pleural effusions or pneumothorax. Central and peripheral ai rways are patent. Mediastinum: Heart size is normal, without pericardial effusion. No mediastinal or hilar adenopathy . Thoracic aorta is normal in caliber and enhancement. Esophagus is normal in caliber, without hiat al hernia. Bones and chest wall: Diffuse sclerotic metastasis.. Ribs and thoracic spine appear intact throughou t. Thyroid gland is present. No axillary or supraclavicular adenopathy. Abdomen: Visualized upper abdominal solid organs appear normal in the early arterial phase of enhanc ement. IMPRESSION: No acute pulmonary emboli. Diffuse osseous metastatic disease. There are no discrepancies with the preliminary report. Dictated by: Trent Brown M.D. on 03/30/2017 at 8:40 Approved by: Trent Brown M.D. on 03/30/2017 at 9:31
--- NOTE | 2017-03-30 10:20 | NUR ---
received TC from pt's TEJINDER Bourgeois, . Pt was scheduled to have an assessment today, since she is admitted to the hospital this will take place after she discharges. Pt lives with sister and [id number] who are/will be pt's caregivers. Advised [employer] Addendum: 03/30/17 at 1025 by DEREK RIVERA faxed H&P to Billy at [phone]
[2017-03-30] MEDS ORDERED: LORA1TAB PO (10:26)
[2017-03-30] MEDS ORDERED: [UNRECOGNIZED DRUG - OTHER] INFUSION (10:26)
[2017-03-30] MEDS ORDERED: OLAN5TAB PO (11:45)
[2017-03-30] MEDS ORDERED: ZOM4I IV (11:45)
[2017-03-30 17:50] LABS: EOSINOPHILS % (AUTO) 1.6 % (0-5)
[2017-03-30 17:53] LABS: BASOPHILS % (AUTO) 0.7 % (0-3); MONOCYTES % (AUTO) 4.9 % (4-12); Mean Corpuscular Hemoglobin 29.6 pg (27.0-35.0); NEUTROPHILS % (AUTO) 75.2 % (40-74); Platelet Count 74 bil/L (150-400)
--- NOTE | 2017-03-30 19:55 | NUR ---
ACTIVITY/BLOOD TRANSFUSION Patient complains of chest pain. Rating it as 9/10. Non-radiating. Dilaudid 1 mg PO and Oxicodone administered. Via FELDT scale patients pain level is 0/10 after her pain medication. Complained of nausea. Zofran 4 mg IV administered. No emesis noted. Tolerated her liquids PO and ate 100 % of her dinner. Denies SOB. Ambulating independently in the the room. Tolerated activity well. Voiding without any problems noted. Patient is on remote tele. Per telemarketing sales representative patient is on sinus rhythm; HR-80's. 3 units of PRBC administered. Lasix IV administered after her 1st unit. Tolerated blood transfusion well.
[2017-03-31 01:10] VITALS: BP 123/78; PULSE 83; RESP 20; O2SAT 95
[2017-03-31] MEDS: Ondansetron 2 mg/mL 2 mL Inj IVPUSH PRN ×2 (01:50→06:08)
[2017-03-31] MEDS: HYDROmorphone 1 mg/mL Inj IVPUSH PRN ×3 (01:50→08:40)
[2017-03-31] MEDS: LORazepam 0.5 mg Tablet PO PRN (02:34)
[2017-03-31 03:39] VITALS: PULSE 69
--- NOTE | 2017-03-31 03:49 | NUR ---
Pain pt complains of chest pain 04/27. she also says sometimes she gets very SOB with activity and has a panic attack. she has been given 1mg IV dilaudid and oxycodone for pain. she prefers the IV dilaudid saying it gives her relief from the pain faster. she has only been able to sleep intermittently and says the pain medication makes the pain "a little better". she has been up independently in the room and sometimes has to sit up and dangle on the edge of the bed to catch her breath. care continues.
[2017-03-31 05:50] VITALS: BP 128/84; PULSE 87; RESP 20; O2SAT 97
[2017-03-31 06:31] LABS: BASOPHILS % (AUTO) 0.4 % (0-3); EOSINOPHILS % (AUTO) 1.7 % (0-5); MONOCYTES % (AUTO) 6.1 % (4-12); Mean Corpuscular Volume 86.7 fL (81-100); NEUTROPHILS % (AUTO) 66.3 % (40-74); Platelet Count 64 bil/L (150-400)
[2017-03-31 06:46] LABS: TROPONIN T 0.01 ug/L (0.0-0.011)
[2017-03-31 06:58] LABS: Magnesium 1.8 mg/dL (1.6-2.6)
[2017-03-31 08:00] VITALS: PULSE 82
[2017-03-31] MEDS: Lisinopril 40 Tablet PO SCH (08:39)
[2017-03-31 08:40] VITALS: BP 130/85; PULSE 82; RESP 20; O2SAT 96
[2017-03-31] MEDS: Fluticasone 0.05% 15 Spray/2 Gm 16 Gm Nasal Spray NASAL SCH (08:40)
[2017-03-31] MEDS ORDERED: Pantoprazole 20 mg ER24 Tablet PO SCH (09:10)
--- NOTE | 2017-03-31 10:21 | PCM.DIMED ---
Discharge Instructions Date of Service Mar 31, 2017 Dates of Hospitalization Mar 30, 2017 at 03:34 Discharge Diagnosis Discharge Diagnosis # Acute anemia, present on admission Likely secondary to bone marrow infiltration and chemotherapy Transfused 3 units of PRBCs #Chest pain, acute, present on admission, resolved Likely musculoskeletal all metastases to bone #History of breast carcinoma metastatic to bone, present on admission Diet Discharge Diet: No restrictions Activity Discharge Activity: Limited until seen by PCP Call your provider Call your provider for: Fever or Chills, Shortness of breath, Bleeding, Chest pain, Vomitting, Excessive diarrhea, Weakness (unilateral) Patient Instructions Patient Instructions You were hospitalized to do to chest pain. EKG and cardiac enzymes negative for heart attack. Chest pain seems to be due to musculoskeletal, probably related to metastatic cancer. Please continue pain medication oxycodone as prescribed. Please take omeprazole for possible acid reflux. Please follow-up with PCP in 1 week. Please follow-up with oncologist Dr. Smith in 1-2 weeks Follow-up Provider: Kev Lyn MD Follow-up with PCP in: 1 week Provider: Barrie Smith DO Follow-up in: 1 week Daniel Banks MD Mar 31, 2017 10:21
[2017-03-31] MEDS ORDERED: OMEP20CA11 PO (10:26)
[2017-03-31 10:36] VITALS: BP 122/86; PULSE 88; RESP 19; O2SAT 99
--- NOTE | 2017-03-31 11:45 | NUR ---
DISCHARGE Patient rated her chest pain as 7/10. Upon D/C patient has no complaints of chest pain. Plan to transition patient to oral pain medication prior to D/C, patient is agreeable to it, however, she wants to be d/cd as soon as D/C orders are in. Dr. Banks made me aware of this. Tolerating liquids PO and her diet well. She ate 100 % of her lunch. Denies nausea. No emesis noted. Denies SOB. Patient has been ambulating independently in her room. Gait is steady. Voiding without any problems. Portacath was d/cd by IVT. IV saline lock d/cd. Discharge instructions, care notes and prescription was given to the patient and she verbalized understanding. Discharged to home with her sister and all her personal belongings. (Copy of D/C is in the chart). Addendum: 03/31/17 at 1547 by JOSE SIMMONS RN APPOINTMENT Per patient she will schedule her own appointment with Dr. Smith.
--- NOTE | 2017-03-31 11:48 | PCM.DC.MED ---
Discharge Summary Date of Service Mar 31, 2017 Dates of Hospitalization Date of Hospital Admission Mar 30, 2017 at 03:34 Date of Discharge: Mar 31, 2017 Providers: Admitting Physician: Flaca Gould MD Primary Care Physician: Kev Hernandez MD Attending Physician: Daniel Jeffers MD Diagnosis at Time of Discharge Diagnosis at Time of Discharge # Acute anemia, present on admission Likely secondary to bone marrow infiltration and chemotherapy Transfused 3 units of PRBCs #Chest pain, acute, present on admission, resolved Likely musculoskeletal all metastases to bone #History of breast carcinoma metastatic to bone, present on admission Procedures XRay, CTs & MRIs PROCEDURE: CT ANGIO CHEST PULMONARY EMBOLISM ([id number]) INDICATIONS: cp breast ca IMPRESSION: No acute pulmonary emboli. Diffuse osseous metastatic disease. There are no discrepancies with the preliminary report. Dictated by: Trent Brown M.D. on 03/30/2017 at 8:40 PROCEDURE: X-RAY CHEST ONE VIEW, PORTABLE ([id number]) INDICATIONS: CHEST PAIN FOR 24 HOURS IMPRESSION: 1. No radiographic evidence of acute cardiopulmonary pathology. 2. Left-sided portacatheter. Dictated by: Trent Brown M.D. 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 Worse with movement and some tenderness to palpation. Worse when she takes a deep breath. Per evaluation in the emergency room includes a troponin of 0.010. CTA of chest PE protocol revealed no dissection or pulmonary emboli. Mild scattered atelectasis or infiltrate cannot be ruled out. Suspect diffuse bony metastatic disease. She was also found to be anemic with a hemoglobin 6.3 hematocrit 20.0. White count 2.4 and platelets 81,000. She was recently hospitalized here 02/28/2017. That admission was for acute encephalopathy. It was thought to be secondary to acute anemia and opiate analgesia. She was also seen by oncology Dr. Smith at that time. She currently is undergoing a chemotherapy regimen of fulvestrant. Patient is placed in observation status for PRBC 3 unit transfusion. Hospital Course # Acute anemia, present on admission likely secondary to bone marrow infiltration and chemotherapy Transfuse 3 units of PRBCs ,hb 9.4 #Chest pain, acute, present on admission,resolved -chest sol resolved . Continues to have generalized pain on bones. Demand ischemia from anemia possible but unlikely -likely musculoskeletal due to bone mets .pain reproducible on palpation . no need for stress test . -ekg and troponin negative x2 CT of chest is negative for PE #History of breast carcinoma metastatic to bone, present on admission Followed by Dr. Smith oncology #CODE STATUS Patient is full code as previously discussed with palliative care at her [place] admission. discharged home condition on discharge stable Patient initially admitted as inpatient, chest pain controlled and resolved sooner than Anticipated Exam Vital Signs (Last) Date Time Temp Pulse Resp B/P Pulse Ox O2 Delivery O2 Flow Rate FiO2 03/31/17 10:36 36.9 88 19 122/86 99 Room Air Exam Constitutional: Middle-aged female in mild pain distress Head: Normocephalic/atraumatic Neck: No adenopathy Chest: Clear to auscultation Cor: Regular rate and rhythm. Pain reproducible on chest wall palpation Abdomen: Soft mild diffuse tenderness no rebound no guarding bowel sounds present Extremities: No pedal edema Skin: No rashes Psych: Mood and affect are appropriate Neuro: Alert and oriented 3, motor strength is intact bilaterally Test 03/30/17 01:10 03/31/17 06:00 Band Neutrophils % 1% (1-5) Hold Russell Top Tube Received (Received) White Blood Count 2.3th/mm3 (3.8-10.1) Red Blood Count 3.24mil/mm3 (3.90-5.20) Hemoglobin 9.4g/dL (12.0-15.6) Hematocrit 28.1% (35.0-46.0) Mean Corpuscular Volume 86.7fL (81-100) Mean Corpuscular Hemoglobin 29.0pg (27.0-35.0) Mean Corpuscular Hemoglobin Concent 33.5% (32.0-37.0) Red Cell Distribution Width 16.1% (12.3-15.4) Platelet Count 64bil/L (150-400) Neutrophils (%) (Auto) 66.3% (40-74) Lymphocytes (%) (Auto) 24.2% (14-46) Monocytes (%) (Auto) 6.1% (4-12) Eosinophils (%) (Auto) 1.7% (0-5) Basophils (%) (Auto) 0.4% (0-3) Sodium Level 144mEq/L (134-144) Potassium Level 4.0mEq/L (3.5-5.2) Chloride Level 103mEq/L (97-108) Carbon Dioxide Level 27mmol/L (18-29) Blood Urea Nitrogen 16mg/dL (6-24) Creatinine 0.77mg/dL (0.57-1.00) Estimat Glomerular Filtration Rate 115mL/min (>59) Glucose Level 85mg/dL (60-99) Calcium Level 9.4mg/dL (8.5-10.1) Magnesium Level 1.8mg/dL (1.6-2.6) Total Bilirubin 0.4mg/dL (0.0-1.2) Aspartate Amino Transf (AST/SGOT) 20U/L (0-50) Alanine Aminotransferase (ALT/SGPT) 12U/L (0-32) Alkaline Phosphatase 78U/L (25-150) Troponin T 0.010ug/L (0.0-0.011) Total Protein 6.0g/dL (6.4-8.4) Albumin 3.3g/dL (3.4-5.0) Discharge Medications Discharge Medications Cetirizine HCl (Zyrtec) 10 Mg Capsule 10 MG PO MORNING (Reported) Fentanyl 75 mcg/hr Patch (Fentanyl 75 mcg/hr Patch) 1 Each Patch.td72 1 PATCH TRANSDERM Q3D (Reported) Fluticasone Propionate (Flonase Allergy Relief) 50 Mcg/Actuation [place].susp 2 SPRAYS NS DAILY (Reported) each nostril Lisinopril (Lisinopril) 40 Mg Tablet 40 MG PO HS (Reported) Olanzapine (Olanzapine) 5 Mg Tablet 5 MG PO DAILY (Reported) Omeprazole (Omeprazole) 20 Mg Capsule.dr 20 MG PO BID Prescribed by: DANIEL JEFFERS MD Zoledronic Acid (Zometa) 4 Mg/5 Ml Vial 4 MG IV [id number] (Reported) As needed Lorazepam (Lorazepam) 1 Mg Tablet 1 MG PO Q6H PRN PRN insomnia/nausea (Reported ) Ondansetron ODT (Zofran ODT) 4 Mg Tablet 4-8 MG PO Q4H PRN PRN For Nausea/ Vomiting Prescribed by: KEV HERNANDEZ MD oxyCODONE (oxyCODONE) 10 Mg Tablet 10 MG PO Q4H PRN PRN For Pain Prescribed by: GWYN GREY DO Followup Plan Disposition: home Discharge Diet: No restrictions Discharge Activity: Limited until seen by PCP Patient Instructions You were hospitalized to do to chest pain. EKG and cardiac enzymes negative for heart attack. Chest pain seems to be due to musculoskeletal, probably related to metastatic cancer. Please continue pain medication oxycodone as prescribed. Please take omeprazole for possible acid reflux. Please follow-up with PCP in 1 week. Please follow-up with oncologist Dr. Smith in 1-2 weeks Follow-up Provider: Kev Hernandez MD Follow-up with PCP in: 1 week Provider: Barrie Smith DO Follow-up in: 1 week Time spent 35 minutes coordinating discharge and counseling patient on pain management copies to: Kev Hernandez MD; Barrie Smith Melaku MD Mar 31, 2017 11:48
--- NOTE | 2017-03-31 14:09 | NUR ---
Social Work: Discharge/Attempted Initial Assessment/AM Multi-Disciplinary Rounds SW attempted to meet with pt to conduct initial assessment. Per MD in rounds, pt does not have any identifiable SW discharge needs. Pt discharge via POV prior to SW meeting with pt. JAMARI Muse
== END 2017-03-31 11:40 | disposition home or self-care (01) | DRG 812 ==
LOC: SED 00:42 → OSC 03:34
PROVIDERS: ADMIT Specialist; ATTEND Specialist
PROC: 30233N1 Transfusion of Nonautologous Red Blood Cells into Peripheral Vein, Percutaneous Approach (ICD-10-PCS; principal; 2017-03-30)
DX: D64.81 Anemia due to antineoplastic chemotherapy (principal); C79.51 Secondary malignant neoplasm of bone; E28.2 Polycystic ovarian syndrome; I10 Essential (primary) hypertension; E78.5 Hyperlipidemia, unspecified; E03.9 Hypothyroidism, unspecified; C50.912 Malignant neoplasm of unspecified site of left female breast

== ENCOUNTER 2017-04-03 12:08 | Emergency (ER) | payer MEDICARE ==
[~2017-04-03] VITALS: Ht 170.2 cm; Wt 78.0 kg
[~2017-04-03 12:08] MED LIST changes: -CAPE500T15 PO; -LORA-302 PO; +LORA1TAB PO; +OLAN5TAB PO; +OMEP20CA11 PO; -POLY17PO6 PO; -SENN-133 PO; +ZOM4I IV
[2017-04-03 12:10] VITALS: BP 116/84; PULSE 102; RESP 17; O2SAT 99
--- NOTE | 2017-04-03 12:20 | ED.REPORT ---
HPI-Chest Pain 40 and Over Date of Service Apr 03, 2017 ED Provider: Farshad Oh MD Pt is a 46 y/o female w/ a hx of active metastatic breast CA w/ osseous metastases s/p radiation and chemotherapy, HTN, HLD, presenting to the ED c/o ongoing, worsening substernal and right-sided CP since her recent hospital discharge. The patient was recently admitted March 30- for anemia for which she received 3 units of PRBCs, as well as for non-cardiac chest pain likely caused by metastases to bone. Chest CTA obtained during that visit was interpreted as no acute PE and diffuse osseous metastatic disease. Her chest pain was worsened and is now traveling down her right-side now causing her shortness of breath. Her pain is constant and is not exacerbated by exertion but is pleuritic. She does not normally use oxygen. She has no history of cardiac disease or stroke. Nursing Notes Stated Complaint: CHEST PAIN/METASTATIC BREAST CANCER Chief Complaint: Chest Pain Nursing Notes Reviewed: Yes Allergies: Coded Allergies: Penicillins (Verified Allergy, Severe, RASH, 04/03/17) metoclopramide (Verified Allergy, Intermediate, tremors, 04/03/17) prochlorperazine (Verified Allergy, Unknown, 04/03/17) Sulfa (Sulfonamide Antibiotics) (Verified Adverse Reaction, Intermediate, N&V, 04/03/17) ciprofloxacin (Verified Adverse Reaction, Mild, MALAISE, 04/03/17) metoclopramide HCl (Verified Adverse Reaction, Mild, JITTERINESS, 04/03/17) Uncoded Allergies: APRICOTS (Allergy, Severe, UNKNOWN, 05/20/13) "My lips swell" CATS (Allergy, Unknown, UNKNOWN, 04/24/12) DUST MITES (Allergy, Unknown, UNKNOWN, 04/24/12) SULFITES (Allergy, Unknown, UNKNOWN, 04/24/12) TREE POLLEN (Allergy, Unknown, UNKNOWN, 04/24/12) Scheduled Cetirizine HCl (Zyrtec) 10 Mg Capsule 10 MG PO MORNING Fentanyl 75 mcg/hr Patch (Fentanyl 75 mcg/hr Patch) 1 Each Patch.td72 1 PATCH TRANSDERM Q3D Fluticasone Propionate (Flonase Allergy Relief) 50 Mcg/Actuation [place].susp 2 SPRAYS NS DAILY each nostril Lisinopril (Lisinopril) 40 Mg Tablet 40 MG PO HS Olanzapine (Olanzapine) 5 Mg Tablet 5 MG PO DAILY Omeprazole (Omeprazole) 20 Mg Capsule.dr 20 MG PO BID Zoledronic Acid (Zometa) 4 Mg/5 Ml Vial 4 MG IV [id number] Scheduled PRN Lorazepam (Lorazepam) 1 Mg Tablet 1 MG PO Q6H PRN PRN insomnia/nausea Ondansetron ODT (Zofran ODT) 4 Mg Tablet 4-8 MG PO Q4H PRN PRN For Nausea/ Vomiting oxyCODONE (oxyCODONE) 10 Mg Tablet 10 MG PO Q4H PRN PRN For Pain General Time Seen by MD: 12:19 Chief Complaint Chest pain Hx Obtained From: Patient Arrived By: Walk-in Sudden in Onset?: No Onset Occurred: 4 days ago Symptom Duration: Constant Location: : Chest right: Substernal Quality: Painful Radiation: : Does not radiate Severity: Current: Moderate Severity: Maximum: Moderate Past Medical History Past Medical History Notes: Oncologist Gabo Smith Past Medical History 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 difficile colitis Chronic sinusitis Hypothyroidism Reports: Hyperlipidemia, Hypertension Past Surgical History bone biopsy L3 pedicle and L3 vertebral body 10/01/14 - pathology postive for breast CA recurrence sinus polyp removal lumpectomy for CA, portacath placement hysterectomy tubal ligation uterine ablation Family History Father hypertension Smoking History Former Smoker Social History Alcohol Use: Denies alcohol use Drug Use: Denies drug use Other Social History: Good social support, Local resident Ambulatory Status Independent Review of Systems Constitutional: Denies: Chills, Fever Respiratory: Reports: Pleuritic pain, Shortness of breath, Denies: Non-productive cough Cardiovascular: Reports: Chest pain GI: Denies: Abdominal pain, Nausea, Vomiting Complete sys rev & neg: except as marked. Physical Exam Initial Vital Signs Vital Signs (First) Date Time Temp Pulse Resp B/P Pulse Ox O2 Delivery O2 Flow Rate FiO2 04/03/17 12:10 36.9 102 17 116/84 99 Room Air 04/03/17 14:18 2 Initial VS: Reviewed, Vital signs abnormal Head / Eyes: Atraumatic, Normocephalic, PERRL ENT: Mucous membranes moist, Conjunctiva normal, No scleral icterus Neck: Supple, Full range of motion Extremities: Vascular intact, Neuro intact, No swelling Skin: Warm, Dry, No cyanosis Neurologic: Alert, Oriented, Nonfocal Psychiatric: Mood/affect normal, Behavior normal, Normal thought content General/Constitutional: Awake, Alert, No acute distress, Cooperative, Not toxic appearing Appearance / Presentation: Positive: Uncomfortable Respiratory / Chest: Breath sounds NL, Breath sounds = bilat, No respiratory distress, No rales, No rhonchi, No wheezing Substernal and right chest reproducible tenderness Port-a-cath in left chest without surrounding erythema Cardiovascular: Heart rate NL, Regular rhythm, Heart sounds NL, No murmurs Abdomen: Atraumatic, Soft, Non-tender Interpretation & Diagnostics Lab Results Interpretation Result Diagram: 04/03/17 1324 04/03/17 1324 Test 04/03/17 13:24 04/03/17 16:04 White Blood Count 2.6th/mm3 (3.8-10.1) Red Blood Count 3.76mil/mm3 (3.90-5.20) Hemoglobin 10.9g/dL (12.0-15.6) Hematocrit 33.2% (35.0-46.0) Mean Corpuscular Volume 88.3fL (81-100) Mean Corpuscular Hemoglobin 29.0pg (27.0-35.0) Mean Corpuscular Hemoglobin Concent 32.8% (32.0-37.0) Red Cell Distribution Width 15.7% (12.3-15.4) Platelet Count 61bil/L (150-400) Neutrophils (%) (Auto) 68.8% (40-74) Lymphocytes (%) (Auto) 17.9% (14-46) Monocytes (%) (Auto) 8.6% (4-12) Eosinophils (%) (Auto) 2.7% (0-5) Basophils (%) (Auto) 0.8% (0-3) Sodium Level 141mEq/L (134-144) Potassium Level 4.4mEq/L (3.5-5.2) Chloride Level 99mEq/L (97-108) Carbon Dioxide Level 24mmol/L (18-29) Blood Urea Nitrogen 11mg/dL (6-24) Creatinine 0.84mg/dL (0.57-1.00) Estimat Glomerular Filtration Rate 104mL/min (>59) Glucose Level 116mg/dL (60-99) Calcium Level 10.1mg/dL (8.5-10.1) Magnesium Level 1.8mg/dL (1.6-2.6) Total Bilirubin 0.3mg/dL (0.0-1.2) Aspartate Amino Transf (AST/SGOT) 24U/L (0-50) Alanine Aminotransferase (ALT/SGPT) 16U/L (0-32) Alkaline Phosphatase 86U/L (25-150) Total Protein 7.4g/dL (6.4-8.4) Albumin 3.6g/dL (3.4-5.0) Troponin T < 0.010ug/L (0.0-0.011) ECG Interpretation ECG Interpretation: Sinus rhythm rate 94 Q waves in III Time: 12:36 Interpreted by: ED physician Normal ECG Interpretation: No acute ischemic changes X-Ray Chest Interpretation Chest Xray Interpretation: IMPRESSION: No acute cardiopulmonary findings. Low lung volumes. Dictated by: Diandra Rojas M.D. on 04/03/2017 at 12:50 Approved by: Diandra Rojas M.D. on 04/03/2017 at 12:51 View: Portable, 1 view Interpretation / Wet Read by: Interpret - Radiologist Re-Eval/Medical Decision Med Decision/Clinical Course 46-year-old female history of metastatic breast cancer with osseous metastases presenting with chronic right-sided chest pain for the last couple weeks. She was admitted to hospital recently several days ago. She had a CT [place] chest which showed no blood clot. Her pain significantly predated that. Her troponins are negative 2. She is tender over her right chest wall. Vital signs are stable. There is no life-threatening cause identified of her chest pain today. This is most likely due to her osseous metastasis. She felt much better throughout her time in her care. She will be discharged home with plans to follow up with her primary doctor with return precautions. Time of Eval: 16:40 Re-Evaluation/Progress Note: Pt rechecked. Feels better and wants to go home. Informed pt of plan for discharge. Pt understands and agrees with plan for discharge. F/U instructions and RTER warnings given. All questions addressed. Counseled Regarding: Diagnosis, Lab results, Need for follow-up, When/why to return to ED Discharge & Departure Primary Impression: Non-cardiac chest pain Additional Impression: Malignant bone pain Disposition: Home Discharge Condition All VS Reviewed: Yes Condition: Stable Patient Instructions: Chest Pain (ED) Additional Instructions: Thank you for seeking care at the emergency room. Your troponins are negative. You had no blood clot on CT scan 3 days ago. The most likely cause for your pain is from the metastases to the bones of your chest. Our primary goal today in the Emergency Department was to evaluate you for any life-threatening conditions. Your evaluation was reassuring. Labs today were reassuring. You should follow-up with your primary doctor and oncologist in the next week. You should return to the Emergency Department immediately if you develop fevers , vomiting, cough, shortness of breath, worsening or differing chest pain, lightheadedness, weakness or any other concerning signs or symptoms. Thank you for letting us partake in your care today. Referrals: Kev Lyn MD (PCP) Barrie Smith Attestation Portions of this note were transcribed by Nima Godinez. I, Dr. Oh personally performed the history, physical exam and medical decision-making; I reviewed and confirmed the accuracy of the information in the transcribed note. Signed by Milagros Smalls, 04/03/17 - [id number] copies to: Kev Lyn MD; Barrie Smith Ben M MD Apr 03, 2017 12:20 NIMA GODINEZ Apr 03, 2017 12:35
--- NOTE | 2017-04-03 12:53 | DRSVH ---
PROCEDURE: X-RAY CHEST ONE VIEW, PORTABLE ([id number]) INDICATIONS: cp TECHNIQUE: One view of the chest was acquired. COMPARISON: [facility], CR, XR CHEST 1VW (PORTABLE), 03/30/2017, 0:44. FINDINGS: Surgical changes and devices: Left Port-A-Cath is unchanged. Partial mastectomy clips are projected o tino the right breast. Lungs and pleura: Lung volumes are low. No pleural effusions or pneumothorax. Lungs are clear. Mediastinum: Mediastinal contours appear normal. Heart size is normal. Bones and chest wall: No suspicious bony lesions. Overlying soft tissues appear unremarkable. IMPRESSION: No acute cardiopulmonary findings. Low lung volumes. Dictated by: Diandra Rojas M.D. on 04/03/2017 at 12:50 Approved by: Diandra Rojas M.D. on 04/03/2017 at 12:51
[2017-04-03] MEDS: HYDROmorphone 0.5 mg/0.5 mL iSecure Syringe IVPUSH PRN ×2 (13:25→14:50)
[2017-04-03 13:32] LABS: Mean Corpuscular Volume 88.3 fL (81-100)
[2017-04-03 13:43] LABS: BASOPHILS % (AUTO) 0.8 % (0-3); EOSINOPHILS % (AUTO) 2.7 % (0-5); MONOCYTES % (AUTO) 8.6 % (4-12); NEUTROPHILS % (AUTO) 68.8 % (40-74); Platelet Count 61 bil/L (150-400)
[2017-04-03 13:57] LABS: TROPONIN T < 0.010 ug/L (0.0-0.011)
[2017-04-03 14:06] LABS: Magnesium 1.8 mg/dL (1.6-2.6)
[2017-04-03 14:18] VITALS: BP 112/75; PULSE 71; RESP 20; O2SAT 96
[2017-04-03] MEDS ORDERED: Ondansetron 2 mg/mL 2 mL Inj ONE (14:39)
[2017-04-03] MEDS ORDERED: Ondansetron 2 mg/mL 2 mL Inj IVPUSH PRN (16:25)
[2017-04-03 17:04] VITALS: BP 120/84; PULSE 90; RESP 15; O2SAT 97
== END 2017-04-03 17:17 | disposition home or self-care (01) ==
LOC: SED 12:08
DX: R07.89 Other chest pain (principal); M89.8X9 Other specified disorders of bone, unspecified site; C50.912 Malignant neoplasm of unspecified site of left female breast; I10 Essential (primary) hypertension; E78.5 Hyperlipidemia, unspecified; E03.9 Hypothyroidism, unspecified; Z87.891 Personal history of nicotine dependence; Z98.51 Tubal ligation status; Z90.710 Acquired absence of both cervix and uterus; Z88.0 Allergy status to penicillin; Z88.2 Allergy status to sulfonamides; Z88.8 Allergy status to other drugs, medicaments and biological substances; Z88.1 Allergy status to other antibiotic agents
CPT/HCPCS: 36415; 71010; 80053; 83735; 84484; 85025; 93005; 96374; 96375; 96376; 99285; J1170; J1885; J2405